=== PATIENT | female | born 1985 | race Hispanic/Latino ===

== ENCOUNTER 2025-03-16 14:29 | Inpatient (IN) | payer SELFPAY ==
[~2025-03-16] VITALS: Ht 147.3 cm; Wt 53.0 kg
--- NOTE | 2025-03-16 14:57 | HP ---
[facility] HISTORY AND PHYSICAL Date of Service: Mar 16, 2025 Time of Service: 14:56 HISTORY OF PRESENT ILLNESS: 39-year-old female with past medical history insulin dependent diabetes mellitus, history of coarctation of aorta status post surgery as a child who pr esented the hospital secondary to shortness of breath with exertion, chest pain, lower extremity weakness. Patient states since January last year she has noted that she has been having progressive shortness of breath. Her shortness of breath is present with exertional mainly ambulation. She can take 20s steps before getting short of. She also gets mildly short of breath with daily activities including cooking. She complains of midsternal chest pain which radiates towards her back. She describes the pain as heartburn in nature. She currently does not have any active chest pain when she came to the hospital. She denied any upper extremity numbness, weakness. Additionally she has also noted that she is having progressive weakness of her lower extremity. She has a difficult time with ambulation. She does ambulate at home. She had sprained her right ankle around one year ago and has noted pain in the ankle. She had x- ray done in the ER and she was treated for sprain conservatively. She denies any previous history of hypertension. She went to see her primary interactive media director Dr. Leavitt today where she was recommended to come to the hospital for further evaluation. She was sent as a direct admission. Furthermore she has a history of insulin dependent diabetes and currently takes Tresiba and Humalog at home. Patient's blood pressure on presentation was 167/72, heart rate was in the 90s, temperature was 99.0 REVIEW OF SYSTEMS CONSTITUTIONAL: Denies fevers, chills, or night sweats. No unintentional weight loss reported. NEUROLOGICAL: Denies headache, amaurosis fugax, motor weakness, sensory deficit, vertigo/spinning sensation, gait abnormalities, or tremors. ENT: No hearing loss, otalgia, otorrhea, rhinitis, rhinorrhea, hoarseness, or sore throat. CARDIOVASCULAR: Positive for dyspnea on exertion, PULMONARY: Denies any shortness of breath, cough, phlegm/sputum, hemoptysis, pleuritic chest pain. SLEEP: Denies morning headaches, daytime somnolence or napping. Denies difficulty falling asleep, staying asleep, waking from sleep. Denies knowledge of snoring. GASTROINTESTINAL: Denies any type of dysphagia to either liquids or solids. Denies nausea, vomiting, pyrosis, early satiety, abdominal pain, diarrhea, constipation, or changes in stool consistency or caliber. Denies coffee-ground emesis, hematemesis, hematochezia, or melanotic stools. GENITOURINARY: Denies frequency, urgency, nocturia, hematuria or incontinence (Storage/Irritative symptoms.) Low urinary stream, straining to void, urinary intermittency or hesitancy, splitting of the voiding stream, terminal dribbling. ENDOCRINOLOGIC: Denies polyuria, polydipsia, polyphagia or heat/cold intolerances. HEMATOLOGIC: Denies thrombophilia/previous clots, or coagulopathy/bleeding disorders. ONCOLOGIC: Denies personal history of malignancy. DERMATOLOGIC: Denies rashes or pruritus. PSYCHIATRIC: Denies any suicidal or homicidal ideation. Denies hallucinations. PAST MEDICAL HISTORY: Insulin dependent diabetes mellitus, history of coarctation acute PAST SURGICAL HISTORY: Patient had coarctation of aorta repaired when she was 23 days old as a child PAST SOCIAL HISTORY: Denied any smoking, alcohol, drug use FAMILY HISTORY: Denied any pertinent family history Coded Allergies: levofloxacin (Unverified Allergy, Unknown, NAUSEA/VOMITING, 03/16/25) PHYSICAL EXAM GENERAL APPEARANCE: The patient is awake, alert, and oriented, in no acute cardiopulmonary distress. NEUROLOGICAL: Cranial nerves II-XII grossly intact. Motor is 5/5 in bilateral upper and lower extremities proximal to distal. No sensory deficits. HEENT: Face is symmetric. Pupils are equal and reactive. Extraocular movements are intact. NECK: Supple. No JVD. No thyromegaly. No submental, submandibular, pre- /postauricular, occipital or supraclavicular lymphadenopathy. CHEST: Normal chest expansion. No Telemetry. LUNGS: Absence of any rales, rhonchi or any wheezing. CARDIOVASCULAR: Regular. S1 and S2 normal. No appreciable rubs, murmurs or gallops. ABDOMEN: Soft, nontender, and nondistended. There is no rebound, voluntary guarding, or rigidity. : Deferred. No Cope. EXTREMITIES: Patient's lower extremity he is thin. She does move her lower extremities without issue. Unable to dorsiflex her right ankle secondary to pain. SKIN: No skin breakdown. Vital Sign (Last 24 Hours) 10/8/25 14:31 Temp 99.0 Pulse 98 Resp 18 B/P (MAP) 167/84 Pulse Ox 99 O2 Delivery Room Air LABS: Current Medications Medications (Trade) Dose Ordered Sig/Jamila Route PRN Reason Start Time Stop Time Status Last Admin Dose Admin Acetaminophen (TYLenol 500MG TAB) 500 mg Q6H PRN PO MILD PAIN (1-3) 03/16/25 15:00 04/15/25 14:59 Dextrose (D50w) 50 ml AD PRN IV HYPOGLYCEMIA PROTOCOL 03/16/25 15:00 04/15/25 14:59 UNV Famotidine (Pepcid 20mg Vial) 20 mg BID IV 03/16/25 21:00 04/15/25 20:59 Glucagon (Glucagon 1mg Kit) 1 mg AD PRN IM HYPOGLYCEMIA PROTOCOL 03/16/25 15:00 04/15/25 14:59 UNV Insulin Human Regular (humuLIN R 100 UNIT/ML 3ML) INSULIN SLIDING SCAL... ACHS SQ 03/16/25 16:30 04/15/25 16:29 UNV Potassium Chloride (KCl 10% Elixir 20meq/15ml) 20 meq AD PRN PO POTASSIUM PROTOCOL 03/16/25 15:00 04/15/25 14:59 UNV DIAGNOSTICS / RADIOLOGY: [ ] ASSESSMENT: Suspected coarctation of aorta status post repair as a child Progressive dyspnea on exertion. Differential secondary to coarctation of aorta versus CHF Lower extremity weakness Hypertension Insulin dependent diabetes mellitus chest pain PLAN: -patient to be admitted to PCCU -in reference to progressive shortness of breath. We will obtain echocardiogram BNP, troponin. Obtain a chest x-ray. We will obtain a CT angio of the chest for evaluation of coarctation of aorta -in reference to possible coarctation of aorta. We will request CT angio of the chest. We will request consultation with Cardiology -obtain a x-ray of the ankle. Obtain a arterial Doppler of the lower extremities. -check hemoglobin A1c -obtain home medications which will be reconciled once available -further orders per hospitalization course. Advanced Care Planning Which of the following were discussed: Hospice care: Yes __ No _x_ Therapeutic options: Yes __ No __ Advance directives: Yes __ No __ Other discussions: Discussed with who?: patient (Patient, family or surrogates) Voluntary nature of this service was explained to the patient? Yes _x_ No __ Amount of time spent: 25 minutes SERAFIN Mcdaniels MD, MD Mar 16, 2025 14:57
[2025-03-16] MEDS ORDERED: DEXTROSE 50%-WATER 50 ML DISP.SYRIN IV PRN (15:00)
[2025-03-16] MEDS ORDERED: PoTASSium chl 10% ELIXIR 20MEQ 20 MEQ/15 ML UDCUP PO PRN (15:00)
[2025-03-16] MEDS ORDERED: GLUCAGON 1MG KIT 1 MG ML IM PRN (15:00)
[2025-03-16] MEDS ORDERED: MAGNESIUM 2GM PREMIX 50ML 50 ML IV PRN (15:00)
[2025-03-16 15:14] LABS: IMMATURE GRANULOCYTE ABSOLUTE 0.03 K/uL (0-1); NUCLEATED RED BLOOD CELLS 0.0 % (0.0-0.19); PLATELET COUNT (AUTO) 334 K/uL (130-400); RED BLOOD CELL COUNT(AUTO) 3.94 MIL/uL (4.00-5.50); RED CELL DISTRIBUTION WIDTH 12.3 % (11.0-15.5); WHITE BLOOD COUNT (AUTO) 9.4 K/uL (4.8-10.8)
--- NOTE | 2025-03-16 15:33 | EKG ---
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
[2025-03-16 15:38] LABS: ASPARTATE AMINOTRANSFERASE 19.0 U/L (10-37); CREATININE 0.7 mg/dL (0.5-1.0); GLOMERULAR FILTR. RATE CALC 111.0 mL/min (>90); GLUCOSE,RANDOM 134.0 mg/dL (70-105); SODIUM SERUM 139.0 mmol/L (136-145); TOTAL PROTEIN, SERUM 7.5 g/dL (6.0-8.3); UREA NITROGEN, BLOOD 19.0 mg/dL (7-18)
[2025-03-16 16:39] LABS: APPEARANCE,URINE CLOUDY (CLEAR); GLUCOSE, URINE (UA) NEGATIVE (NEGATIVE); LEUKOCYTE ESTERASE ,URINE NEGATIVE Leu/uL (NEGATIVE); NITRATE,URINE 2+ (NEGATIVE); OCCULT BLOOD,URINE NEGATIVE (NEGATIVE)
[2025-03-16 16:41] LABS: ADD UA MICROSCOPIC YES
[2025-03-16 16:43] LABS: HCG,QUALITATIVE URINE NEGATIVE (NEGATIVE)
[2025-03-16 16:45] LABS: SQUAMOUS EPITHELIAL CELL,UR RARE /HPF (0-2)
[2025-03-16] MEDS ORDERED: IOHEXOL-350 75 ML VIAL IV ONE (16:55)
--- NOTE | 2025-03-16 17:23 | HMCIMG ---
Exam: Bilateral lower extremity arterial ultrasound. Technique: Static grayscale and Doppler images were obtained History: Leg weakness Comparison: None Right side: COATING MACHINE FEEDER systolic: 172 cm/s Waveform: Triphasic SFA proximal systolic: 113 cm/s Waveform: Triphasic SFA mid systolic: 128 cm/s Waveform: Triphasic SFA distal systolic: 127 cm/s Waveform: Triphasic Popliteal artery systolic: 93/79 cm/s Waveform triphasic Anterior tibial artery systolic: 72 cm/s Waveform triphasic Posterior tibial artery systolic 40 cm/s Waveform triphasic DPA: 46 cm/s. Waveform: Triphasic Left side: COATING MACHINE FEEDER systolic: 138 cm/s Waveform: Triphasic SFA proximal systolic: 113 cm/s Waveform: Triphasic SFA mid systolic: 122 cm/s Waveform: Triphasic SFA distal systolic: 90 cm/s Waveform: Triphasic Popliteal artery systolic: 102/96 cm/s Waveform triphasic Anterior tibial artery systolic: 114 cm/s Waveform triphasic Posterior tibial artery systolic 40 cm/s Waveform triphasic. DPA: 110 cm/s. Waveform: Triphasic IMPRESSION: 1. No acute findings. Normal bilateral lower extremity arterial ultrasound. /[place]
--- NOTE | 2025-03-16 18:06 | HMCIMG ---
EXAM: XR Chest, 1 View. CLINICAL HISTORY: 39 year old female coartation of aorta. COMPARISON: None provided. FINDINGS: LUNGS: The lungs are clear. No consolidation. PLEURAL SPACES: No pleural effusion or pneumothorax. HEART: Borderline cardiomegaly. Consider CTA chest if clinically indicated. BONES: No acute osseous abnormality. IMPRESSION: 1. Borderline cardiomegaly. /[place]
--- NOTE | 2025-03-16 18:17 | NUR ---
REPORT GIVEN TO JIGAR SCOTT, SAIRA SENT WITH PATIENT
[2025-03-16 18:21] VITALS: BP 158/88; PULSE 95; RESP 17; TEMP 98.1
--- NOTE | 2025-03-16 18:24 | HMCIMG ---
EXAM: XR Right Ankle, 3 View. CLINICAL HISTORY: 39 year old female right ankle pain. COMPARISON: None provided. FINDINGS: BONES: No acute fracture or focal osseous lesion. JOINTS: No dislocation. The joint spaces are normal. SOFT TISSUES: The soft tissues are unremarkable. IMPRESSION: 1. No acute osseous abnormality. /[place]
[2025-03-16 18:37] VITALS: BP 129/82; PULSE 96; RESP 17; TEMP 98.1
--- NOTE | 2025-03-16 18:37 | HMCIMG ---
EXAM: CT Chest Without Intravenous Contrast. CLINICAL HISTORY: 39-year-old female, coarctation of the aorta. TECHNIQUE: Axial computed tomography images of the chest without intravenous contrast. Dose reduction technique was used including one or more of the following: automated exposure control, adjustment of mA and kV according to patient size, and/or iterative reconstruction. CONTRAST: Without COMPARISON: Chest x-ray 01/16/2025. FINDINGS: LIMITATIONS: Motion artifact limits evaluation. LUNGS: Negative for pulmonary embolism. No pulmonary mass. No focal airspace consolidation. PLEURAL SPACES: No pleural effusion. No pneumothorax. HEART AND MEDIASTINUM: Coarctation of the aorta. No cardiomegaly. No significant pericardial effusion. LYMPH NODES: No lymphadenopathy. CHEST WALL AND UPPER ABDOMEN: Mild fatty liver. The chest wall is unremarkable. BONES: No acute osseous abnormality. Overall similar to chest x-ray. IMPRESSION: 1. No acute pulmonary abnormality. 2. Mild fatty liver. /[place]
[2025-03-16] MEDS ORDERED: LORA10TA7 PO (18:51)
[2025-03-16] MEDS ORDERED: FLUT16H EN (18:51)
[2025-03-16 19:19] VITALS: BP 109/77; PULSE 96; RESP 18; TEMP 98.3
[2025-03-16 20:00] VITALS: O2SAT 98
[2025-03-16] MEDS: FAMOTIDINE 20MG VIAL IV SCH (20:43)
--- NOTE | 2025-03-16 22:20 | HMCSR ---
APPROVED REPORT EXAM: Two-dimensional and M-mode echocardiogram with Doppler and color Doppler. Study Details: Hx: DM, coarctation of aorta s/p surgery as a child INDICATION ICD: R06.02 Shortness of breath, possible coarctation of aorta 2D Dimensions RVDd2.6 cmLVEF(%)65.3 (>50%)LVED Vol(simp.)53.0 mL IVSd1.3 (0.7-1.1cm)FS(%)35 %LVES Vol(simp.)26.0 mL LVDd3.2 (3.8-5.6cm)LA (2D)2.8 (1.6-4.0cm)LVEF(%, simp.)51 % PWd1.3 (0.7-1.1cm)Ao Root(2D)2.8 (2.0-3.7cm)LA ESV INDEX (BP)24.72 mL/m2 IVSs1.7 cmLVOT diam1.7 (1.8-2.4cm) LVDs2.1 (2.5-4.0cm) PWs1.7 cm Deformation Strain Apical 4-15.1 % Apical 2-14.1 % Apical 3-14.9 % Global Strain-14.7 % M-Mode Dimensions EPSS0.4 cm LA (MM)2.9 (1.6-4.0cm) Ao Root(MM)2.2 (2.0-3.7cm) Aortic Valve AoV Vmax1.5 m/Issa Peak GR9.1 mmHgLVOT Vmax0.9 m/s AoV VTI0.3 mAo Mean GR5.2 mmHgLVOT VTI0.17 m JABARI (VMAX)1.70 cm2AVA (VTI) 1.6 cm2 Mitral Valve MV E Qhzd500.6 cm/sDECEL Xdli153 msMVA (VTI)2.00 cm2 MV A Vmax90.5 cm/sP 1/2 T34 ms E/A ratio1.2MVA (PHT)6.5 cm2 TDI E/E' Ycdmwc96.5E/E' Zsvlvlw58.1 Medial E' Peak V6.88 cm/sLateral E' Peak V8.11 cm/s Pulmonary Valve PV Vmax1.2 m/sPV VTI0.19 mPV Mean GR3.3 mmHg PV Peak GR5.8 mmHg Tricuspid Valve TR Vmax1.4 m/sRAP (EST) 3 iyVcWGVB46.3 mmHg TR Peak GR8.3 mmHg Left Ventricle The left ventricle is normal size. GLS -15.0% No regional wall motion abnormality. Moderate concentri c left ventricular hypertrophy. LVEF is 50%. Indeterminate diastolic dysfunction. Right Ventricle The right ventricle is normal size. The right ventricular systolic function is normal. Atria The left atrium size is normal. Atrial septum is bowed toward the right. The right atrium is small in size. Aortic Valve The aortic valve appears to open well. No aortic regurgitation is present. There is no aortic valvula r stenosis. Mitral Valve Hockey-stick appearance of Anterior mitral leaflet, but no significant stenosis by doppler measurem ent. The mitral valve is mildly thickened. Mitral valve appears rheumatic. There is trivial mitral va lve regurgitation noted. There is no mitral valve stenosis. Tricuspid Valve The tricuspid valve is normal in structure. There is trace of tricuspid valve regurgitation noted. Pulmonic Valve The pulmonary valve is normal in structure. There is trivial pulmonic valvular regurgitation. Great Vessels The aortic root is normal in size. The IVC is small in size and collapses >50% with inspiration. Pericardium There is no pericardial effusion. Other Information Quality : Technically difficult study due to body habitus Conclusion LVEF is 50%. Moderate concentric left ventricular hypertrophy.
[2025-03-16 23:17] VITALS: BP 131/65; PULSE 96; RESP 18; TEMP 98.1
[2025-03-17] VITALS (11 sets, daily range): BP systolic 81–141; BP diastolic 54–90; PULSE 43–96; RESP 17–20; TEMP 98–98.5; O2SAT 98–99
[2025-03-17] MEDS ORDERED: INSU100I15 SQ (00:52)
[2025-03-17] MEDS ORDERED: INSU200I4 SQ (00:52)
[2025-03-17 04:14] LABS: ASPARTATE AMINOTRANSFERASE 18.0 U/L (10-37); CREATININE 0.4 mg/dL (0.5-1.0); GLOMERULAR FILTR. RATE CALC 127.0 mL/min (>90); GLUCOSE,RANDOM 89.0 mg/dL (70-105); SODIUM SERUM 141.0 mmol/L (136-145); TOTAL PROTEIN, SERUM 6.5 g/dL (6.0-8.3); UREA NITROGEN, BLOOD 21.0 mg/dL (7-18)
[2025-03-17] MEDS: PoTASSium chloRIDE 20MEQ ER 20 MEQ ERTAB PO PRN (06:03)
--- NOTE | 2025-03-17 08:16 | CONS ---
[facility] CARDIOLOGY CONSULTATION NOTE Date Patient Seen: Mar 17, 2025 Time of Visit: 08:11 Reason for Consultation: [h/o coarctation s/p repair ] History of Present Illness: [ 39-year-old female with past medical history insulin dependent diabetes me llitus, history of coarctation of aorta status post surgical repair as an infant (first month of life) who presented the hospital secondary to shortness of breath with exertion, chest pain, lower extremity weakness. Patient states since January last year she has noted that she has been having progressive shortness of breath. Her shortness of breath is present with exertional mainly ambulation. She can take 20s steps before getting short of. She also gets mildly short of breath with daily activities including cooking. She complains of midsternal chest pain which radiates towards her back. She describes the pain as heartburn in nature. She currently does not have any active chest pain when she came to the hospital. She denied any upper extremity numbness, weakness. Additionally she has also noted that she is having progressive weakness of her lower extremity. She has a difficult time with ambulation. She does ambulate at home. I evaluated her as a new patient in my clinic on the day of admission due to discrepancy of BP in both upper extremities and debilitating symptoms. ] Past Medical History: [ ] Past Surgical History: [ ] Family History: [ ] Social History: [ ] Habits: [Never] smoker. [Denies] alcohol consumption. [Denies] illicit drug use Home Meds: [ ] Current Meds: [ ] Review of Systems: CONST: [No fever, fatigue, or weight changes.] EYES: [No recent vision problems.] ENT: [No congestion, ear pain, or sore throat.] C/V: [No chest pain, palpitations, or edema.] RESP: [No cough. + shortness of breath.] GI: [No abdominal pain, nausea, vomiting, constipation, or diarrhea.] : [No incontinence or dysuria.] SKIN: [No rash.] NEURO: [No headache, focal numbness or weakness, dizziness, or seizures.] PSYCH: [No depression or anxiety.] HEME: [No abnormal bruising or bleeding.] LYMPH: [No swollen glands.] Physical Examination: GENERAL: [No acute distress.] HEAD: [Normal with no signs of head trauma.] EYES: [PERRLA, EOMI, conjunctiva and sclera normal.] ENT: [Hearing grossly intact, normal oropharynx.] NECK: [Supple without JVD. There is no tenderness, lymphadenopathy, or masses. No thyromegaly. Normal carotid upstrokes without bruits.] LUNGS: [Clear breath sounds bilaterally. There are right basilar rales one third of the way up the chest. No wheezes, or rhonchi.] HEART: [Normal rate and rhythm. Normal S1 and S2 without mumurs, gallop or rub.] VASC: [Peripheral pulses +2 bilaterally.] ABD: [Bowel sounds normal, soft, nontender, no masses, no organomegaly. No audib le bruits.] : [Not examined] LYMPH: [No lymphadenopathy noted.] EXT: [No clubbing, cyanosis or edema.] SKIN: [No rashes or lesions noted.] NEURO: [Awake, alert, and oriented x3. No focal sensory or strength deficits noted.] Vital Signs (last 8hr) Date Time Temp Pulse Resp B/P (MAP) Pulse Ox O2 Delivery O2 Flow Rate FiO2 03/17/25 07:33 98 Room Air* 0 21 03/17/25 03:41 98.1 86 18 141/74 100 Room Air Laboratory: [ ] Hematology Labs: Test 03/16/25 15:07 Range/Units White Blood Count 9.4 4.8-10.8 K/uL Red Blood Count 3.94 L 4.00-5.50 MIL/uL Hemoglobin 11.8 L 12.0-16.0 g/dL Hematocrit 34.7 L 36-48 % Mean Corpuscular Volume 88.1 79-99 fL Mean Corpuscular Hemoglobin 29.9 27.0-33.0 pg Mean Corpuscular Hemoglobin Concent 34.0 32.0-36.0 g/dL Red Cell Distribution Width 12.3 11.0-15.5 % Platelet Count 334 130-400 K/uL Mean Platelet Volume 10.5 7.5-10.5 fL Immature Granulocyte % (Auto) 0.3 0-1 % Neutrophils (%) (Auto) 73.5 40.0-77.0 % Lymphocytes (%) (Auto) 17.3 L 21.0-51.0 % Monocytes (%) (Auto) 7.2 3.0-13.0 % Eosinophils (%) (Auto) 1.5 0.0-8.0 % Basophils (%) (Auto) 0.2 0.0-5.0 % Neutrophils # (Auto) 6.9 1.8-7.7 K/uL Lymphocytes # (Auto) 1.6 1.0-4.8 K/uL Monocytes # (Auto) 0.7 0.1-1.0 K/uL Eosinophils # (Auto) 0.14 0.00-0.70 K/uL Basophils # (Auto) 0.02 0.00-0.20 K/uL Absolute Immature Granulocyte (auto 0.03 0-1 K/uL Nucleated Red Blood Cells 0.0 0.0-0.19 % Chemistry Labs: Test 03/17/25 03:17 03/16/25 19:18 03/16/25 15:07 Range/Units Sodium Level 141 136-145 mmol/L Potassium Level 3.7 3.5-5.1 mmol/L Chloride Level 108 101-111 mmol/L Carbon Dioxide Level 24 21-32 mmol/L Blood Urea Nitrogen 21 H 7-18 mg/dL Creatinine 0.4 L 0.5-1.0 mg/dL Glomerular Filtration Rate Calc 127 >90 mL/min Random Glucose 89 70-105 mg/dL Total Calcium 8.2 L 8.5-10.1 mg/dL Magnesium Level 2.00 1.80-2.40 mg/dL Total Bilirubin 0.2 # 0.2-1.0 mg/dL Aspartate Amino Transf (AST/SGOT) 18 10-37 U/L Alanine Aminotransferase (ALT/SGPT) 17 # 12-78 U/L Alkaline Phosphatase 65 # 50-136 U/L Total Protein 6.5 6.0-8.3 g/dL Albumin 2.7 L 3.5-5.0 g/dL Thyroid Stimulating Hormone (TSH) 1.87 # 0.36-3.74 uIU/mL Whole Blood Glucose 91 70-110 MG/DL Hemoglobin A1c 6.5 H 4.0-6.0 % Estimated Average Glucose (eAG) 140 H 70-126 mg/dL Troponin I High Sensitivity 5 4-50 ng/L B-Type Natriuretic Peptide 41 0-100 pg/mL Procalcitonin < 0.05 L 0.05-0.5 ng/mL Diagnostics / Radiology: [Copy/Paste Echos/Imaging Report here] Assessment: [ DM History of coarctation of aorta s/p repair as an ] Plan: [ #History of coarctation of aorta s/p repair as an infant now with recurrence -CCTA absence of CAD, however, >75% reduction in diameter of coarctation of the aorta -Echo limited views of descending aorta, but was otherwise normal ->20 SBP drop in RUE compared to LUE -pending upper and lower BP measurements -will have Dr Cooper evaluate on Friday Jillian Leavitt MD] JILLIAN LEAVITT MD Mar 17, 2025 08:16
--- NOTE | 2025-03-17 11:19 | NUR ---
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 P states family assists her as needed with her ADLS. Pt states she walks very slowly because her legs are very weak. helps with bathing and dressing set up and stand by assist. Pt reports she has a good support system in place. No dme or in home care services. pCP is Lisa Baptiste and uses [facility] on [address] and [address] in [place]. Pt hopes she can return home, waiting for MD plan of care and recommendations. CM to follow and assist as needed Addendum: 03/17/25 at 1127 by SIMONE MEZA Amended: Links added.
--- NOTE | 2025-03-17 12:09 | CONS ---
CONSULT NOTE: Endocrinology Consult Chief complaint: chest pain, sob and elevated BP Reason for consult: dm-2 and htn DOS:03/17/25 HISTORY OF PRESENT ILLNESS: 39-year-old female with past medical history insulin dependent type 1 diabetes mellitus, history of coarctation of aorta status post surgery as a child who presented the hospital secondary to shortness of breath with exertion, chest pain, lower extremity weakness. Patient states since January last year she has noted that she has been having progressive shortness of breath. She had x-ray done in the ER and she was treated for sprain conservatively. She denies any previous history of hypertension. She is followed by her primary sas analyst Dr. Leavitt Patient's blood pressure on presentation was 167/72, heart rate was in the 90s, temperature was 99.0, BP is improving now. Home diabetic regimen: tresiba 15 units daily and humalog 7 units qac before meals Hba1c 6.5% I saw this patient recently in the hospital and am cortisol was checked due to intermittent low blood pressure. am cortisol was normal 17.2, so there was no evidence of adrenal insufficiency. REVIEW OF SYSTEMS CONSTITUTIONAL: Denies fevers, chills, or night sweats. No unintentional weight loss reported. NEUROLOGICAL: Denies headache, amaurosis fugax, motor weakness, sensory deficit, vertigo/spinning sensation, gait abnormalities, or tremors. ENT: No hearing loss, otalgia, otorrhea, rhinitis, rhinorrhea, hoarseness, or sore throat. CARDIOVASCULAR: Positive for dyspnea on exertion, PULMONARY: Denies any shortness of breath, cough, phlegm/sputum, hemoptysis, pleuritic chest pain. SLEEP: Denies morning headaches, daytime somnolence or napping. Denies difficulty falling asleep, staying asleep, waking from sleep. Denies knowledge of snoring. GASTROINTESTINAL: Denies any type of dysphagia to either liquids or solids. Denies nausea, vomiting, pyrosis, early satiety, abdominal pain, diarrhea, constipation, or changes in stool consistency or caliber. Denies coffee-ground emesis, hematemesis, hematochezia, or melanotic stools. GENITOURINARY: Denies frequency, urgency, nocturia, hematuria or incontinence (Storage/Irritative symptoms.) Low urinary stream, straining to void, urinary intermittency or hesitancy, splitting of the voiding stream, terminal dribbling. ENDOCRINOLOGIC: Denies polyuria, polydipsia, polyphagia or heat/cold intolerances. HEMATOLOGIC: Denies thrombophilia/previous clots, or coagulopathy/bleeding disorders. ONCOLOGIC: Denies personal history of malignancy. DERMATOLOGIC: Denies rashes or pruritus. PSYCHIATRIC: Denies any suicidal or homicidal ideation. Denies hallucinations. 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 - Emergency room visit in September for sprained right ankle after fall at home Surgical History - Retinal detachment surgery in 2018 - Coarctation of the aorta repair at 23 days old - Surgery for muscle tightening in stomach at 10 days old Medications and Supplements - Insulin for type one diabetes - Always taking since diagnosis at age 8 - Avastin eye injections in both eyes due to prolonged diabetes - Received in the past Social History - Occupation: Works at a [email or web address] job Coded Allergies: levofloxacin (Unverified Allergy, Unknown, NAUSEA/VOMITING, 03/16/25) PHYSICAL EXAM GENERAL APPEARANCE: The patient is awake, alert, and oriented, in no acute cardiopulmonary distress. NEUROLOGICAL: Cranial nerves II-XII grossly intact. Motor is 5/5 in bilateral upper and lower extremities proximal to distal. No sensory deficits. HEENT: Face is symmetric. Pupils are equal and reactive. Extraocular movements are intact. NECK: Supple. No JVD. No thyromegaly. No submental, submandibular, pre- /postauricular, occipital or supraclavicular lymphadenopathy. CHEST: Normal chest expansion. No Telemetry. LUNGS: Absence of any rales, rhonchi or any wheezing. CARDIOVASCULAR: Regular. S1 and S2 normal. No appreciable rubs, murmurs or gallops. ABDOMEN: Soft, nontender, and nondistended. There is no rebound, voluntary guarding, or rigidity. : Deferred. No Cope. SKIN: No skin breakdown. ASSESSMENT: Type 1 Diabetes mellitus Home diabetic regimen: tresiba 15 units daily and humalog 7 units qac before meals Hba1c 6.5% Hypertension I saw this patient recently in the hospital and am cortisol was checked due to intermittent low blood pressure. am cortisol was normal 17.2, so there was no evidence of adrenal insufficiency. she now reports episodes of elevated BP, chest pain and SOB. my suspicion is low for hyperaldosteronism or pheochromocytoma but will order labs. Suspected coarctation of aorta status post repair as a child, cardiology is following and cardiac work iup is in progress. Progressive dyspnea on exertion. Differential secondary to coarctation of aorta versus CHF Lower extremity weakness chest pain - improving PLAN: continue Lantus 14 units daily and adjust for fasting glucose. start Regular insulin 3 units three times before meals and adjust for post- prandial glucose. Continue low dose sliding scale insulin. check plasma renin, serum aldosterone, plasma fractionated metanpehrines and normetanephrines. Monitor glucose q x 6 hourly. Continue carb consistent diet. Keep glucose less than 180 mg/dl. Thanks for allowing me to participate in patient care and will continue to follow up. Vital Signs 03/17/25 03/17/25 07:33 08:00 Temp 98.2 Pulse 92 Resp 17 B/P (MAP) 119/56 Pulse Ox 99 O2 Delivery Room Air O2 Flow Rate 0 FiO2 21 Hematology Labs: Test 03/16/25 15:07 Range/Units White Blood Count 9.4 4.8-10.8 K/uL Red Blood Count 3.94 L 4.00-5.50 MIL/uL Hemoglobin 11.8 L 12.0-16.0 g/dL Hematocrit 34.7 L 36-48 % Mean Corpuscular Volume 88.1 79-99 fL Mean Corpuscular Hemoglobin 29.9 27.0-33.0 pg Mean Corpuscular Hemoglobin Concent 34.0 32.0-36.0 g/dL Red Cell Distribution Width 12.3 11.0-15.5 % Platelet Count 334 130-400 K/uL Mean Platelet Volume 10.5 7.5-10.5 fL Immature Granulocyte % (Auto) 0.3 0-1 % Neutrophils (%) (Auto) 73.5 40.0-77.0 % Lymphocytes (%) (Auto) 17.3 L 21.0-51.0 % Monocytes (%) (Auto) 7.2 3.0-13.0 % Eosinophils (%) (Auto) 1.5 0.0-8.0 % Basophils (%) (Auto) 0.2 0.0-5.0 % Neutrophils # (Auto) 6.9 1.8-7.7 K/uL Lymphocytes # (Auto) 1.6 1.0-4.8 K/uL Monocytes # (Auto) 0.7 0.1-1.0 K/uL Eosinophils # (Auto) 0.14 0.00-0.70 K/uL Basophils # (Auto) 0.02 0.00-0.20 K/uL Absolute Immature Granulocyte (auto 0.03 0-1 K/uL Nucleated Red Blood Cells 0.0 0.0-0.19 % Chemistry Labs: Test 03/17/25 11:22 03/17/25 03:17 03/16/25 15:07 Range/Units Whole Blood Glucose 135 H 70-110 MG/DL Sodium Level 141 136-145 mmol/L Potassium Level 3.7 3.5-5.1 mmol/L Chloride Level 108 101-111 mmol/L Carbon Dioxide Level 24 21-32 mmol/L Blood Urea Nitrogen 21 H 7-18 mg/dL Creatinine 0.4 L 0.5-1.0 mg/dL Glomerular Filtration Rate Calc 127 >90 mL/min Random Glucose 89 70-105 mg/dL Total Calcium 8.2 L 8.5-10.1 mg/dL Magnesium Level 2.00 1.80-2.40 mg/dL Total Bilirubin 0.2 # 0.2-1.0 mg/dL Aspartate Amino Transf (AST/SGOT) 18 10-37 U/L Alanine Aminotransferase (ALT/SGPT) 17 # 12-78 U/L Alkaline Phosphatase 65 # 50-136 U/L Total Protein 6.5 6.0-8.3 g/dL Albumin 2.7 L 3.5-5.0 g/dL Thyroid Stimulating Hormone (TSH) 1.87 # 0.36-3.74 uIU/mL Hemoglobin A1c 6.5 H 4.0-6.0 % Estimated Average Glucose (eAG) 140 H 70-126 mg/dL Troponin I High Sensitivity 5 4-50 ng/L B-Type Natriuretic Peptide 41 0-100 pg/mL Procalcitonin < 0.05 L 0.05-0.5 ng/mL Current Medications Medications (Trade) Dose Ordered Sig/Jamila Route Start Time Stop Time Status Last Admin Dose Admin Famotidine (Pepcid 20mg Vial) 20 mg BID IV 03/16/25 21:00 04/15/25 20:59 03/17/25 08:08 20 MG Insulin Glargine (LANtus 100 UNITS/ML 10 ML VIAL) 14 units DAILY SQ 03/17/25 09:00 04/16/25 08:59 03/17/25 08:16 14 UNITS Insulin Glargine (LANtus 100 UNITS/ML 10 ML VIAL) 20 units DAILY SQ 03/17/25 09:00 03/17/25 05:36 DC Insulin Human Regular (humuLIN R 100 UNIT/ML 3ML) INSULIN SLIDING SCAL... ACHS SQ 03/16/25 16:30 04/15/25 16:29 LALO CORNEJO MD Mar 17, 2025 12:09
[2025-03-17] MEDS ORDERED: IOHEXOL 350 MG/ML 100ML INFUS..BTL IV ONE (13:28)
--- NOTE | 2025-03-17 13:34 | PN ---
[facility] PROGRESS NOTE Date of Service: Mar 17, 2025 Time of Service: 13:05 HISTORY OF PRESENT ILLNESS: 39-year-old female with past medical history insulin dependent diabetes mellitus, history of coarctation of aorta status post surgery as a child who presented the hospital secondary to shortness of breath with exertion, chest pain, lower extremity weakness. Patient states since January last year she has noted that she has been having progressive shortness of breath. Her shortness of breath is present with exertional mainly ambulation. She can take 20s steps before getting short of. She also gets mildly short of breath with daily activities including cooking. She complains of midsternal chest pain which radiates towards her back. She describes the pain as heartburn in nature. She currently does not have any active chest pain when she came to the hospital. She denied any upper extremity numbness, weakness. Additionally she has also noted that she is having progressive weakness of her lower extremity. She has a difficult time with ambulation. She does ambulate at home. She had sprained her right ankle around one year ago and has noted pain in the ankle. She had x- ray done in the ER and she was treated for sprain conservatively. She denies any previous history of hypertension. 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 Leavitt today where she was recommended to come to the hospital for further evaluation. She was sent as a direct admission. Furthermore she has a history of insulin dependent diabetes and currently takes Tresiba and Humalog at home. Patient's blood pressure on presentation was 167/72, heart rate was in the 90s, temperature was 99.0 SUBJECTIVE: 03/17/25: Patient was seen in room 220, along with her . Patient was alert, awake and oriented. Patient reports shortness of breath with exertion, weakness in her B/L lower extremities. Patient reports ankle pain in her right foot, attributes it to her ankle sprain which she had a few days ago. Patient reports recurrent buckling of her knee joints. Patient denies cramping in her b/l lower extremities. Patient denies any paresthesia in extremities. Patient denies any motor weakness in b/l upper extremities. Patient denied fever, chills, palpitations. Patient denies any current chest pain. REVIEW OF SYSTEMS CONSTITUTIONAL: Denies fevers, chills, or night sweats. No unintentional weight loss reported. NEUROLOGICAL: Denies headache, amaurosis fugax, motor weakness, sensory deficit, vertigo/spinning sensation, gait abnormalities, or tremors. ENT: No hearing loss, otalgia, otorrhea, rhinitis, rhinorrhea, hoarseness, or sore throat. CARDIOVASCULAR: Positive for dyspnea on exertion, PULMONARY: Denies any shortness of breath, cough, phlegm/sputum, hemoptysis, pleuritic chest pain. SLEEP: Denies morning headaches, daytime somnolence or napping. Denies diffic ulty falling asleep, staying asleep, waking from sleep. Denies knowledge of snoring. GASTROINTESTINAL: Denies any type of dysphagia to either liquids or solids. Denies nausea, vomiting, pyrosis, early satiety, abdominal pain, diarrhea, constipation, or changes in stool consistency or caliber. Denies coffee-ground emesis, hematemesis, hematochezia, or melanotic stools. GENITOURINARY: Denies frequency, urgency, nocturia, hematuria or incontinence (Storage/Irritative symptoms.) Low urinary stream, straining to void, urinary intermittency or hesitancy, splitting of the voiding stream, terminal dribbling. ENDOCRINOLOGIC: Denies polyuria, polydipsia, polyphagia or heat/cold into lerances. HEMATOLOGIC: Denies thrombophilia/previous clots, or coagulopathy/bleeding disorders. ONCOLOGIC: Denies personal history of malignancy. DERMATOLOGIC: Denies rashes or pruritus. PSYCHIATRIC: Denies any suicidal or homicidal ideation. Denies hallucinations. PHYSICAL EXAM GENERAL APPEARANCE: The patient is awake, alert, and oriented, in no acute cardiopulmonary distress. NEUROLOGICAL: Cranial nerves II-XII grossly intact. Motor is 5/5 in bilateral upper and lower extremities proximal to distal. No sensory deficits. HEENT: Face is symmetric. Pupils are equal and reactive. Extraocular movements are intact. NECK: Supple. No JVD. No thyromegaly. No submental, submandibular, pre- /postauricular, occipital or supraclavicular lymphadenopathy. CHEST: Normal chest expansion. No Telemetry. LUNGS: Absence of any rales, rhonchi or any wheezing. CARDIOVASCULAR: Regular. S1 and S2 normal. No appreciable rubs, murmurs or gallops. ABDOMEN: Soft, nontender, and nondistended. There is no rebound, voluntary guarding, or rigidity. : Deferred. No Cope. EXTREMITIES: Patient's lower extremity he is thin. She does move her lower extremities without issue. Unable to dorsiflex her right ankle secondary to pain. motor strength in left lower extremity. SKIN: No skin breakdown. Vital Signs (last 8hr) Date Time Temp Pulse Resp B/P (MAP) Pulse Ox O2 Delivery O2 Flow Rate FiO2 03/17/25 12:01 73 17 126/90 100 Room Air 03/17/25 12:00 98.1 43 17 96/70 94 Room Air 03/17/25 08:00 92 17 119/56 99 Room Air 03/17/25 08:00 98.2 96 17 125/57 100 Room Air 03/17/25 07:33 98 Room Air* 0 21 LABS: Laboratory: Test 03/17/25 11:22 03/17/25 03:17 03/16/25 16:27 03/16/25 15:07 Range/Units Whole Blood Glucose 135 H 70-110 MG/DL Sodium Level 141 136-145 mmol/L Potassium Level 3.7 3.5-5.1 mmol/L Chloride Level 108 101-111 mmol/L Carbon Dioxide Level 24 21-32 mmol/L Blood Urea Nitrogen 21 H 7-18 mg/dL Creatinine 0.4 L 0.5-1.0 mg/dL Glomerular Filtration Rate Calc 127 >90 mL/min Random Glucose 89 70-105 mg/dL Total Calcium 8.2 L 8.5-10.1 mg/dL Magnesium Level 2.00 1.80-2.40 mg/dL Total Bilirubin 0.2 # 0.2-1.0 mg/dL Aspartate Amino Transf (AST/SGOT) 18 10-37 U/L Alanine Aminotransferase (ALT/SGPT) 17 # 12-78 U/L Alkaline Phosphatase 65 # 50-136 U/L Total Protein 6.5 6.0-8.3 g/dL Albumin 2.7 L 3.5-5.0 g/dL Vitamin B12 Level 451 193-986 pg/mL Thyroid Stimulating Hormone (TSH) 1.87 # 0.36-3.74 uIU/mL Urine Color LIGHT-YELLOW YELLOW Urine Appearance CLOUDY H CLEAR Urine pH 6.0 5.0-8.0 Urine Specific [place] 1.015 1.001-1.031 Urine Protein 50 H NEGATIVE mg/dL Urine Glucose (UA) NEGATIVE NEGATIVE mg/dL Urine Ketones NEGATIVE NEGATIVE mg/dL Urine Occult Blood NEGATIVE NEGATIVE Urine Nitrate 2+ H NEGATIVE Urine Bilirubin NEGATIVE NEGATIVE mg/dL Urine Urobilinogen 0.2 0.2-1.0 mg/dL Urine Leukocyte Esterase NEGATIVE NEGATIVE Aidan/uL Urine RBC 2-5 H 0-1 /HPF Urine WBC 2-5 H 0-1 /HPF Urine Squamous Epithelial Cells RARE 0-2 /HPF Urine Bacteria MOD None Seen /HPF Urine HCG, Qualitative NEGATIVE NEGATIVE White Blood Count 9.4 4.8-10.8 K/uL Red Blood Count 3.94 L 4.00-5.50 MIL/uL Hemoglobin 11.8 L 12.0-16.0 g/dL Hematocrit 34.7 L 36-48 % Mean Corpuscular Volume 88.1 79-99 fL Mean Corpuscular Hemoglobin 29.9 27.0-33.0 pg Mean Corpuscular Hemoglobin Concent 34.0 32.0-36.0 g/dL Red Cell Distribution Width 12.3 11.0-15.5 % Platelet Count 334 130-400 K/uL Mean Platelet Volume 10.5 7.5-10.5 fL Immature Granulocyte % (Auto) 0.3 0-1 % Neutrophils (%) (Auto) 73.5 40.0-77.0 % Lymphocytes (%) (Auto) 17.3 L 21.0-51.0 % Monocytes (%) (Auto) 7.2 3.0-13.0 % Eosinophils (%) (Auto) 1.5 0.0-8.0 % Basophils (%) (Auto) 0.2 0.0-5.0 % Neutrophils # (Auto) 6.9 1.8-7.7 K/uL Lymphocytes # (Auto) 1.6 1.0-4.8 K/uL Monocytes # (Auto) 0.7 0.1-1.0 K/uL Eosinophils # (Auto) 0.14 0.00-0.70 K/uL Basophils # (Auto) 0.02 0.00-0.20 K/uL Absolute Immature Granulocyte (auto 0.03 0-1 K/uL Nucleated Red Blood Cells 0.0 0.0-0.19 % Hemoglobin A1c 6.5 H 4.0-6.0 % Estimated Average Glucose (eAG) 140 H 70-126 mg/dL Troponin I High Sensitivity 5 4-50 ng/L B-Type Natriuretic Peptide 41 0-100 pg/mL Procalcitonin < 0.05 L 0.05-0.5 ng/mL Current Medications Medications (Trade) Dose Ordered Sig/Jamila Route PRN Reason Start Time Stop Time Status Last Admin Dose Admin Acetaminophen (TYLenol 500MG TAB) 500 mg Q6H PRN PO MILD PAIN (1-3) 03/16/25 15:00 04/15/25 14:59 Dextrose (D50w) 50 ml AD PRN IV HYPOGLYCEMIA PROTOCOL 03/16/25 15:00 04/15/25 14:59 Famotidine (Pepcid 20mg Vial) 20 mg BID IV 03/16/25 21:00 04/15/25 20:59 03/17/25 08:08 20 MG Glucagon (Glucagon 1mg Kit) 1 mg AD PRN IM HYPOGLYCEMIA PROTOCOL 03/16/25 15:00 04/15/25 14:59 Insulin Glargine (LANtus 100 UNITS/ML 10 ML VIAL) 14 units DAILY SQ 03/17/25 09:00 04/16/25 08:59 03/17/25 08:16 14 UNITS Insulin Glargine (LANtus 100 UNITS/ML 10 ML VIAL) 20 units DAILY SQ 03/17/25 09:00 03/17/25 05:36 DC Insulin Human Regular (humuLIN R 100 UNIT/ML 3ML) INSULIN SLIDING SCAL... ACHS SQ 03/16/25 16:30 04/15/25 16:29 Magnesium Sulfate 50 ml @ 0 mls/hr PROTOCOL PRN IV hypomagnesemia 03/16/25 15:00 04/15/25 14:59 Ondansetron HCl (zoFRAN 4MG INJ) 4 mg Q6H PRN IVP NAUSEA/VOMITING 03/16/25 17:00 04/15/25 16:59 Potassium Chloride 100 ml @ 100 mls/hr AD PRN IV POTASSIUM PROTOCOL 03/16/25 15:00 04/15/25 14:59 Potassium Chloride (K-Dur/Klor-Con 20meq) 20 meq AD PRN PO POTASSIUM PROTOCOL 03/16/25 15:00 04/15/25 14:59 03/17/25 08:09 20 MEQ Potassium Chloride (KCl 10% Elixir 20meq/15ml) 20 meq AD PRN PO POTASSIUM PROTOCOL 03/16/25 15:00 04/15/25 14:59 DIAGNOSTICS / RADIOLOGY: [place] [address] [place] [address] IMAGING REPORT Addendum PATIENT: ANGELA BALLARD MR#: [id number] : 1985 SEX: F AGE: 39 LOCATION: 2DH ORDER [id number] STATUS: ADM IN [facility] REPORT#: [id number] SERVICE 1447 REASON: COARTATION OF AORTA HYPERTENSIVE URGENCY ORDERING PHYSICIAN: JENNY LEAVITT MD PROCEDURE: CTA CHEST - CT ANGIO CHEST ADDENDUM REPORT ADDENDUM: A focal coarctation of the aorta is seen on the sagital reconstructed images number [id number] measuring 1.6cm and the aortas below is 2.1cm. Findings discussed over the telephone with Dr.Adarsh Medeiros 03/16/2025 at 7:30PM. /[place] EXAM: CT Chest Without Intravenous Contrast. CLINICAL HISTORY: 39-year-old female, coarctation of the aorta. TECHNIQUE: Axial computed tomography images of the chest without intravenous contrast. Dose reduction technique was used including one or more of the following: automated exposure control, adjustment of mA and kV according to patient size, and/or iterative reconstruction. CONTRAST: Without COMPARISON: Chest x-ray 01/16/2025. FINDINGS: LIMITATIONS: Motion artifact limits evaluation. LUNGS: Negative for pulmonary embolism. No pulmonary mass. No focal airspace consolidation. PLEURAL SPACES: No pleural effusion. No pneumothorax. HEART AND MEDIASTINUM: Coarctation of the aorta. No cardiomegaly. No significant pericardial effusion. LYMPH NODES: No lymphadenopathy. CHEST WALL AND UPPER ABDOMEN: Mild fatty liver. The chest wall is unremarkable. BONES: No acute osseous abnormality. Overall similar to chest x-ray. IMPRESSION: 1. No acute pulmonary abnormality. 2. Mild fatty liver. /[place] DICTATED BY: KENAN MCNALLY MD DATE: 03/16/252032 ELECTRONICALLY SIGNED BY: DATE: EXAM: CT Chest Without Intravenous Contrast. CLINICAL HISTORY: 39-year-old female, coarctation of the aorta. TECHNIQUE: Axial computed tomography images of the chest without intravenous contrast. Dose reduction technique was used including one or more of the following: automated exposure control, adjustment of mA and kV according to patient size, and/or iterative reconstruction. CONTRAST: Without COMPARISON: Chest x-ray 01/16/2025. FINDINGS: LIMITATIONS: Motion artifact limits evaluation. LUNGS: Negative for pulmonary embolism. No pulmonary mass. No focal airspace consolidation. PLEURAL SPACES: No pleural effusion. No pneumothorax. HEART AND MEDIASTINUM: Coarctation of the aorta. No cardiomegaly. No significant pericardial effusion. LYMPH NODES: No lymphadenopathy. CHEST WALL AND UPPER ABDOMEN: Mild fatty liver. The chest wall is unremarkable. BONES: No acute osseous abnormality. Overall similar to chest x-ray. IMPRESSION: 1. No acute pulmonary abnormality. 2. Mild fatty liver. /[place] DICTATED BY: KENAN MCNALLY MD DATE: 03/16/251935 ELECTRONICALLY SIGNED BY: KENAN MCNALLY MD DATE: 03/16/251935 [place] [id number] IMAGING REPORT Signed PATIENT: ANGELA BALLARD MR#: [id number] : 1985 SEX: F AGE: 39 LOCATION: 2DH ORDER 54 STATUS: ADM IN REPORT#: [id number] SERVICE 50 REASON: right ankle pain ORDERING PHYSICIAN: SERAFIN MEDEIROS MD PROCEDURE: [id number] - ANKLE 2VWS RT EXAM: XR Right Ankle, 3 View. CLINICAL HISTORY: 39 year old female right ankle pain. COMPARISON: None provided. FINDINGS: BONES: No acute fracture or focal osseous lesion. JOINTS: No dislocation. The joint spaces are normal. SOFT TISSUES: The soft tissues are unremarkable. IMPRESSION: 1. No acute osseous abnormality. /[place] DICTATED BY: KENAN MCNALLY MD DATE: 03/16/251923 ELECTRONICALLY SIGNED BY: KENAN MCNALLY MD DATE: 03/16/251923 [facility] [address] [place] [address] [id number] IMAGING REPORT Signed PATIENT: ANGELA BALLARD MR#: [id number] : 1985 SEX: F AGE: 39 LOCATION: DIRECT ORDER 57 STATUS: ADM IN REPORT#: [id number] SERVICE 46 REASON: COARTATION OF AORTA HYPERTENSIVE URGENCY ORDERING PHYSICIAN: JENNY LEAVITT MD PROCEDURE: CXR1VW - CHEST 1VW EXAM: XR Chest, 1 View. CLINICAL HISTORY: 39 year old female coartation of aorta. COMPARISON: None provided. FINDINGS: LUNGS: The lungs are clear. No consolidation. PLEURAL SPACES: No pleural effusion or pneumothorax. HEART: Borderline cardiomegaly. Consider CTA chest if clinically indicated. BONES: No acute osseous abnormality. IMPRESSION: 1. Borderline cardiomegaly. /[place] DICTATED BY: KENAN MCNALLY MD DATE: 03/16/251905 ELECTRONICALLY SIGNED BY: KENAN MCNALLY MD DATE: 03/16/251905 [facility] [address] [place] [id number] IMAGING REPORT Signed PATIENT: ANGELA BALLARD MR#: [id number] : 1985 SEX: F AGE: 39 LOCATION: 2DH ORDER 54 STATUS: ADM IN [facility] REPORT#: [id number] SERVICE 1451 REASON: sob, possible coarctation of aorta ORDERING PHYSICIAN: SERAFIN MEDEIROS MD PROCEDURE: ECHO CMP - ECHO 2-D COMPLETE APPROVED REPORT EXAM: Two-dimensional and M-mode echocardiogram with Doppler and color Doppler. Study Details: Hx: DM, coarctation of aorta s/p surgery as a child INDICATION ICD: R06.02 Shortness of breath, possible coarctation of aorta 2D Dimensions RVDd 2.6 cm LVEF(%) 65.3 (>50%) LVED Vol(simp.) 53.0 mL IVSd 1.3 (0.7-1.1cm) FS(%) 35 % LVES Vol(simp.) 26.0 mL LVDd 3.2 (3.8-5.6cm) LA (2D) 2.8 (1.6-4.0cm) LVEF(%, simp.) 51 % PWd 1.3 (0.7-1.1cm) Ao Root(2D) 2.8 (2.0-3.7cm) LA ESV INDEX (BP) 24.72 mL/m2 IVSs 1.7 cm LVOT diam 1.7 (1.8-2.4cm) LVDs 2.1 (2.5-4.0cm) PWs 1.7 cm Deformation Strain Apical 4 -15.1 % Apical 2 -14.1 % Apical 3 -14.9 % Global Strain -14.7 % M-Mode Dimensions EPSS 0.4 cm LA (MM) 2.9 (1.6-4.0cm) Ao Root(MM) 2.2 (2.0-3.7cm) Aortic Valve AoV Vmax 1.5 m/s Ao Peak GR 9.1 mmHg LVOT Vmax 0.9 m/s AoV VTI 0.3 m Ao Mean GR 5.2 mmHg LVOT VTI 0.17 m JABARI (VMAX) 1.70 cm2 JABARI (VTI) 1.6 cm2 Mitral Valve MV E Vmax 106.6 cm/s DECEL Time 138 ms MVA (VTI) 2.00 cm2 MV A Vmax 90.5 cm/s P 1/2 T 34 ms E/A ratio 1.2 MVA (PHT) 6.5 cm2 TDI E/E' Medial 15.5 E/E' Lateral 13.1 Medial E' Peak V 6.88 cm/s Lateral E' Peak V 8.11 cm/s Pulmonary Valve PV Vmax 1.2 m/s PV VTI 0.19 m PV Mean GR 3.3 mmHg PV Peak GR 5.8 mmHg Tricuspid Valve TR Vmax 1.4 m/s RAP (EST) 3 mmHg RVSP 11.3 mmHg TR Peak GR 8.3 mmHg Left Ventricle The left ventricle is normal size. GLS -15.0% No regional wall motion abnormality. Moderate concentric left ventricular hypertrophy. LVEF is 50%. Indeterminate diastolic dysfunction. Right Ventricle The right ventricle is normal size. The right ventricular systolic function is normal. Atria The left atrium size is normal. Atrial septum is bowed toward the right. The right atrium is small in size. Aortic Valve The aortic valve appears to open well. No aortic regurgitation is present. There is no aortic valvular stenosis. Mitral Valve Hockey-stick appearance of Anterior mitral leaflet, but no significant stenosis by doppler measurement. The mitral valve is mildly thickened. Mitral valve appears rheumatic. There is trivial mitral valve regurgitation noted. There is no mitral valve stenosis. Tricuspid Valve The tricuspid valve is normal in structure. There is trace of tricuspid valve regurgitation noted. Pulmonic Valve The pulmonary valve is normal in structure. There is trivial pulmonic valvular regurgitation. Great Vessels The aortic root is normal in size. The IVC is small in size and collapses >50% with inspiration. Pericardium There is no pericardial effusion. Other Information Quality : Technically difficult study due to body habitus Conclusion LVEF is 50%. Moderate concentric left ventricular hypertrophy. DICTATED BY: OZZY UNGER MD DATE: 03/16/25 1508 ELECTRONICALLY SIGNED BY: OZZY UNGER MD DATE: 03/16/25 4677 [place] [address] [id number] IMAGING REPORT Signed PATIENT: ANGELA BALLARD MR#: [id number] : 1985 SEX: F AGE: 39 LOCATION: DIRECT ORDER STATUS: ADM IN REPORT#: [id number] SERVICE 1522 REASON: leg weakness, assess for PVD ORDERING PHYSICIAN: SERAFIN MEDEIROS MD PROCEDURE: ART B LE - US ARTERIAL BILAT LOW EXT DUPL Exam: Bilateral lower extremity arterial ultrasound. Technique: Static grayscale and Doppler images were obtained History: Leg weakness Comparison: None Right side: WINE BLENDER systolic: 172 cm/s Waveform: Triphasic SFA proximal systolic: 113 cm/s Waveform: Triphasic SFA mid systolic: 128 cm/s Waveform: Triphasic SFA distal systolic: 127 cm/s Waveform: Triphasic Popliteal artery systolic: 93/79 cm/s Waveform triphasic Anterior tibial artery systolic: 72 cm/s Waveform triphasic Posterior tibial artery systolic 40 cm/s Waveform triphasic DPA: 46 cm/s. Waveform: Triphasic Left side: WINE BLENDER systolic: 138 cm/s Waveform: Triphasic SFA proximal systolic: 113 cm/s Waveform: Triphasic SFA mid systolic: 122 cm/s Waveform: Triphasic SFA distal systolic: 90 cm/s Waveform: Triphasic Popliteal artery systolic: 102/96 cm/s Waveform triphasic Anterior tibial artery systolic: 114 cm/s Waveform triphasic Posterior tibial artery systolic 40 cm/s Waveform triphasic. DPA: 110 cm/s. Waveform: Triphasic IMPRESSION: 1. No acute findings. Normal bilateral lower extremity arterial ultrasound. /[place] DICTATED BY: JIGAR ROQUE MD DATE: 03/16/251822 ELECTRONICALLY SIGNED BY: JIGAR ROQUE MD DATE: 03/16/251822 ASSESSMENT: Suspected coarctation of aorta status post repair as a child Progressive dyspnea on exertion. Differential secondary to coarctation of aorta versus CHF Lower extremity weakness Hypertension Insulin dependent diabetes mellitus chest pain PLAN: Progressive dyspnea on exertion. Differential secondary to coarctation of aorta versus CHF * Will monitor blood pressure in both arms and both lower extremity to assess for significant gradients * EKG ordered, which showed normal sinus rhythm without any abnormalities. * Troponin - 5, BNP- 41, * ECHO was ordered, results show LVEF of 50%, Moderate Left ventricular hypertrophy. * CTA was ordered which showed focal coarctation of aorta, 1.6 cm * Cardiology was consulted and CT Cardiac Angiography with contrast was ordered, awaiting results. * Chest X-ray showed borderline cardiomegaly. Lower extremity weakness * b/l lower extremity weakness w/ decreased motor strength. * US B/L lower extremity Duplex scan was ordered, results were unremarkable. * Neurology was consulted, awaiting recommendations. * CT lumbar spine, CT Thoracic spine, CT head w/o contrast was ordered. CT lumbar spine, thoracic spine results were unremarkable. Ct head findings were unremarkable. * Vitamin B12 was ordered, results show 451. * Ankle X-ray of right foot was ordered, which was unremarkable Suspected coarctation of aorta status post repair as a child * H/O coarctation of aorta s/p repair when she was 23 days old Insulin dependent diabetes mellitus * H/O type 1 DM. HbA1c of 6.5 * Endocrinology was consulted, will follow their recommendations. Chest pain * EKG ordered, which showed normal sinus rhythm without any abnormalities. * Troponin - 5, BNP- 41, * ECHO was ordered, results show LVEF of 50%, Moderate Left ventricular hypertrophy. * CTA was ordered which showed focal coarctation of aorta, 1.6 cm * Cardiology was consulted and CT Cardiac Angiography with contrast was ordered, awaiting results. * Chest X-ray showed borderline cardiomegaly. ATTESTATION BY PHYSICIAN I have seen and examined the patient. I reviewed the documentation, medical decision making, and treatment plan as noted by the resident provider above. I agree with the findings and plan of care. LISHA MARTINEZ MD, SHAJI MD Mar 17, 2025 13:34
--- NOTE | 2025-03-17 14:48 | HMCIMG ---
Exam: NONCONTRAST CT BRAIN REASON: bilateral lower extremity weakness. COMPARISON: None. TECHNIQUE: Images are obtained from vertex to the skull base. The exam was performed without IV contrast. FINDINGS: There is normal appearing brain parenchyma. There are no focal mass lesions. There is is no evidence of intracranial hemorrhage or acute stroke. Ventricles and sulci appear normal. Posterior fossa and brainstem structures are unremarkable. Paranasal sinuses and remaining extracranial soft tissues appear normal as well. IMPRESSION: 1. Normal noncontrast CT brain. CT was performed with one or more following dose reduction techniques: automated exposure control, adjustment of the mA and kv according to patient's size, or use of a iterative reconstruction technique.
--- NOTE | 2025-03-17 14:51 | HMCIMG ---
CT THORACIC SPINE W/O CONTRAST HISTORY: bilateral lower extremity weakness COMPARISON: None TECHNIQUE: Sequential axial images of thoracic spine without contrast and with sagittal and coronal reconstructions FINDINGS: There is normal alignment of thoracic vertebrae. No vertebral body height loss or fractures noted. Disc space height is preserved throughout. The central canal and neural foramen appear patent. Prevertebral soft tissues are unremarkable. IMPRESSION: No acute abnormality present.
--- NOTE | 2025-03-17 14:55 | HMCIMG ---
CT LUMBAR SPINE W/O CONTRAST HISTORY: bilateral lower extremity weakness COMPARISON: None TECHNIQUE: CT lumbar spine was performed with/without IV contrast. Coronal and sagittal reformats were submitted for review. CONTRAST: mL of Isovue FINDINGS: Evaluation of the cord is limited with CT. No evidence of compression fracture or subluxation. Multilevel spondylosis. No disc degenerative disease.Paraspinal soft tissues are unremarkable. Aorta is normal in caliber. For the purposes of this dictation, the lowermost, fully formed disc will be counted as the L5-S1 disc level assuming 5 nonrib-bearing lumbar vertebral segments. There are marginal spur suggesting of osteoarthritic changes most pronounced as compared endplate of L3 followed by L2. INTRAVERTEBRAL LEVELS: L1-2: No disc herniation or bulge. No central canal stenosis or neural foraminal narrowing. L2-3: No disc herniation or bulge. No central canal stenosis or neural foraminal narrowing. L3-4: No disc herniation or bulge. No central canal stenosis or neural foraminal narrowing. L4-5: No disc herniation or bulge. No central canal stenosis or neural foraminal narrowing. L5-S1: No disc herniation or bulge. No central canal stenosis or neural foraminal narrowing. IMPRESSION: No acute fracture or malalignment. No evidence of spinal canal stenosis or herniated nuclear pulposus. There are marginal ventral spurs seen in the superior endplate of L3 and L2.
--- NOTE | 2025-03-17 20:27 | CONS ---
CONSULTATION NOTE Date of Service: Mar 17, 2025 Reason for Consultation: Chronic progressive Bilateral lower extremity weakness Requesting Physician: Hospitalist HISTORY OF PRESENT ILLNESS: Ms. Mahan 39-year-old right-handed female with a history of type 1 diabetes, coarctation of the aorta with surgical repair, and premature presenting with progressive muscle weakness in her legs, shortness of breath with minimal exertion, and frequent falls over the past 9 months. The patient reports that her symptoms began in June 2024 with weakness in her ankles, initially attributing this to lack of exercise. She attempted to walk more but experienced balance issues. By August or September, her symptoms progressed to include fatigue, leg soreness, and significant weakness that prevented her from walking. In September, she fell at home and sprained her right ankle, requiring evaluation at [facility] where x-rays showed no fractures. Her primary care physician, Dr. You Mcgrath at the [facility], recommended staying off the ankle for 2 weeks, after which she resumed walking slowly. The patient describes morning stiffness in her muscles and legs, requiring stretching before leaving the house. She experiences shortness of breath with minimal distances, such as walking from her car to elevators, and feels like she is going to fall. She has fallen 12 to 14 times within the last 6 months. The weakness in her legs makes it difficult to climb stairs. From April to June, she experienced pain from her back to her right foot that occurred while sitting, lying down, and walking, describing it as sciatic pain from the middle of her right side to her right leg. Currently, she does not have leg pain but experiences soreness when walking that feels like she worked out. Her feet become cold, but not her entire legs. The patient saw catalogue illustrator Dr. Jillian Leavitt yesterday for her first cardiology appointment. Dr. Leavitt explained that her symptoms could be related to her coarctation disorder and narrowing of stents, which could affect oxygen and blood flow to her lower extremities. 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 Cardiovascular: Positive for shortness of breath with minimal exertion. Musculoskeletal: Positive for muscle weakness in legs, leg soreness with walking, and difficulty climbing stairs. Negative for current leg pain. Neurological: Positive for frequent falls and loss of balance. REVIEW OF SYSTEMS General: Positive for fatigue and muscle stiffness in the mornings. Cardiovascular: Positive for shortness of breath with minimal exertion. Musculoskeletal: Positive for muscle weakness in legs, leg soreness with walking, and difficulty climbing stairs. Negative for current leg pain. Neurological: Positive for frequent falls and loss of balance. PAST MEDICAL HISTORY: As above PAST SURGICAL HISTORY: As above PAST SOCIAL HISTORY: No tobacco alcohol recreational drug abuse FAMILY HISTORY: None Coded Allergies: levofloxacin (Unverified Allergy, Unknown, NAUSEA/VOMITING, 03/16/25) PHYSICAL EXAM Mental status: The patient is alert, attentive, and oriented. Speech is clear and fluent with good repetition, comprehension, and naming. Pt recalls 3/3 objects at 5 minutes. Cranial nerves: CN II: Visual valdez are full to confrontation. CN III, IV, : At primary gaze, there is no eye deviation. CN V: Facial sensation is intact to pinprick in all 3 divisions bilaterally. Corneal responses are intact. CN VII: Face is symmetric with normal eye closure and smile. CN VIII: Hearing is normal to rubbing fingers CN IX, X: Palate elevates symmetrically. Phonation is normal. CN XI: Head turning and shoulder shrug are intact CN XII: Tongue is midline with normal movements and no atrophy. Motor: The patient has bilateral hip flexion weakness 3/5 Reflexes: Reflexes are 0+ and symmetric at the biceps, triceps, knees, and ankles. Plantar responses are flexor. Sensory: Light touch, pinprick, position sense, and vibration sense are intact in fingers and toes. Coordination: Rapid alternating movements and fine finger movements are intact. There is no dysmetria on [id number] and [id number]. There are no abnormal or extraneous movements. Romberg is absent. Gait/Stance: Not evaluated Vital Sign (Last 24 Hours) 03/17/25 07:33 O2 Flow Rate 0 FiO2 21 Intake & Output (last 24hrs) 03/16/25 03/16/25 03/17/25 15:00 23:00 07:00 Intake Total 240 ml Balance 240 ml LABS: Laboratory: Test 03/17/25 19:21 03/17/25 03:17 03/16/25 16:27 03/16/25 15:07 Range/Units Whole Blood Glucose 227 H 70-110 MG/DL Sodium Level 141 136-145 mmol/L Potassium Level 3.7 3.5-5.1 mmol/L Chloride Level 108 101-111 mmol/L Carbon Dioxide Level 24 21-32 mmol/L Blood Urea Nitrogen 21 H 7-18 mg/dL Creatinine 0.4 L 0.5-1.0 mg/dL Glomerular Filtration Rate Calc 127 >90 mL/min Random Glucose 89 70-105 mg/dL Total Calcium 8.2 L 8.5-10.1 mg/dL Magnesium Level 2.00 1.80-2.40 mg/dL Total Bilirubin 0.2 # 0.2-1.0 mg/dL Aspartate Amino Transf (AST/SGOT) 18 10-37 U/L Alanine Aminotransferase (ALT/SGPT) 17 # 12-78 U/L Alkaline Phosphatase 65 # 50-136 U/L Total Protein 6.5 6.0-8.3 g/dL Albumin 2.7 L 3.5-5.0 g/dL Vitamin B12 Level 451 193-986 pg/mL Thyroid Stimulating Hormone (TSH) 1.87 # 0.36-3.74 uIU/mL Urine Color LIGHT-YELLOW YELLOW Urine Appearance CLOUDY H CLEAR Urine pH 6.0 5.0-8.0 Urine Specific [place] 1.015 1.001-1.031 Urine Protein 50 H NEGATIVE mg/dL Urine Glucose (UA) NEGATIVE NEGATIVE mg/dL Urine Ketones NEGATIVE NEGATIVE mg/dL Urine Occult Blood NEGATIVE NEGATIVE Urine Nitrate 2+ H NEGATIVE Urine Bilirubin NEGATIVE NEGATIVE mg/dL Urine Urobilinogen 0.2 0.2-1.0 mg/dL Urine Leukocyte Esterase NEGATIVE NEGATIVE Aidan/uL Urine RBC 2-5 H 0-1 /HPF Urine WBC 2-5 H 0-1 /HPF Urine Squamous Epithelial Cells RARE 0-2 /HPF Urine Bacteria MOD None Seen /HPF Urine HCG, Qualitative NEGATIVE NEGATIVE White Blood Count 9.4 4.8-10.8 K/uL Red Blood Count 3.94 L 4.00-5.50 MIL/uL Hemoglobin 11.8 L 12.0-16.0 g/dL Hematocrit 34.7 L 36-48 % Mean Corpuscular Volume 88.1 79-99 fL Mean Corpuscular Hemoglobin 29.9 27.0-33.0 pg Mean Corpuscular Hemoglobin Concent 34.0 32.0-36.0 g/dL Red Cell Distribution Width 12.3 11.0-15.5 % Platelet Count 334 130-400 K/uL Mean Platelet Volume 10.5 7.5-10.5 fL Immature Granulocyte % (Auto) 0.3 0-1 % Neutrophils (%) (Auto) 73.5 40.0-77.0 % Lymphocytes (%) (Auto) 17.3 L 21.0-51.0 % Monocytes (%) (Auto) 7.2 3.0-13.0 % Eosinophils (%) (Auto) 1.5 0.0-8.0 % Basophils (%) (Auto) 0.2 0.0-5.0 % Neutrophils # (Auto) 6.9 1.8-7.7 K/uL Lymphocytes # (Auto) 1.6 1.0-4.8 K/uL Monocytes # (Auto) 0.7 0.1-1.0 K/uL Eosinophils # (Auto) 0.14 0.00-0.70 K/uL Basophils # (Auto) 0.02 0.00-0.20 K/uL Absolute Immature Granulocyte (auto 0.03 0-1 K/uL Nucleated Red Blood Cells 0.0 0.0-0.19 % Hemoglobin A1c 6.5 H 4.0-6.0 % Estimated Average Glucose (eAG) 140 H 70-126 mg/dL Troponin I High Sensitivity 5 4-50 ng/L B-Type Natriuretic Peptide 41 0-100 pg/mL Procalcitonin < 0.05 L 0.05-0.5 ng/mL DIAGNOSTICS / RADIOLOGY: CT scan of the lumbar spine CT scan of the thoracic spine normal ASSESSMENT / PLAN: Ms. Mahan is a 39-year-old female with a history of type 1 diabetes and coarctation of aorta repair presenting with 9 months of progressive bilateral lower extremity weakness, frequent falls, and shortness of breath on exertion. Progressive lower extremity weakness Assessment: Patient presents with 9-month history of progressive bilateral lower extremity weakness beginning in June with ankle weakness, progressing to significant functional impairment with 12-14 falls over the past 6 months. Symptoms include morning stiffness requiring stretching, difficulty with stairs, balance issues, and associated shortness of breath with minimal exertion. CT scan of lumbar spine shows no fractures, osteoporosis, or osteoarthritis. Vibration sensation appears diminished in lower extremities compared to knees. Differential diagnosis includes disc herniation with nerve compression, vascular compromise related to aortic coarctation and stent narrowing affecting lower extremity blood flow, autoimmune disorders, or peripheral neuropathy potentially related to diabetes history. Other possible diagnosis includes CIDP. Plan: - MRI of lumbar spine to evaluate for disc herniation and nerve compression - EMG neuroconduction study as outpatient to assess electrical activity from s pine to legs and identify lower extremity nerve injuries - Primary care physician referral required for EMG test - Cardiology follow-up with Dr. Leavitt for review of echocardiogram and CT scan with contrast results Shortness of breath on exertion Assessment: Patient reports shortness of breath with minimal exertion, such as walking from car to elevator. Per cardiology evaluation with Dr. Leavitt, symptoms may be related to aortic coarctation disorder and narrowing of stents causing decreased oxygen and blood flow to lower extremities. Echocardiogram and CT scan with contrast performed today pending review. Plan: - Cardiology follow-up with Dr. Leavitt tomorrow for review of echocardiogram and CT scan with contrast results History of sciatic pain Assessment: Patient experienced sciatic-type pain from back to right foot occurring from April to June, present in all positions including sitting, lying, and walking. Pain has since resolved. CT scan of thoracic and lumbar spine ordered by Dr. Medeiros shows no abnormalities, but CT imaging has limitations for disc visualization compared to MRI. Plan: - MRI of lumbar spine to better evaluate disc pathology and potential nerve compression Thank you for your consultation DICK CONSTANTINO MD Mar 17, 2025 20:27
--- NOTE | 2025-03-17 20:41 | CARDIOLOGY ---
RAD REPORT: HAMELARY CT ANGIO RADIOLOGY REPORT: CORONARY CT ANGIOGRAPHY DATE: Mar 17, 2025 QUALITY: Excellent CLINICAL HISTORY AND INDICATION: [chest pain ] TECHNIQUE: After obtaining a preliminary consumer insights intern image, contrast imaging performed on an [employer]illon [id number] scanner. A dedicated, limited window, coronary imaging protocol was used, with single breath-hold, retrospective ECG gating, and automated arrhythmia rejection. 100 cc of low osmolar contrast agent: Omnipaque 350 was delivered via a 18-gauge IV catheter in the right antecubital fossa, using a power injector and followed by 60 cc of normal saline bolus as a chaser. Collimated images were reformatted at 0.5 mm intervals, and sent to an offline independent workstation for interpretation, using 3D anatomic reconstructions: Curved multiplanar reconstructions, maximum intensity projections, and multiplanar imaging. 20 mg IV metoprolol was administered prior to scanning. 0.8 mg SL nitroglycerin was given. CORONARY ARTERY DESCRIPTIONS: The LAD and the LCx have separate ostia. Left anterior descending coronary artery: Normal caliber vessel and gives rise to diagonal and septal branches. No stenosis. Left circumflex coronary artery: Normal caliber, dominant and gives rise to a large OM branch. No stenosis. Right coronary artery: Small, non-dominant vessel. No stenosis. CAD-RADs: 0, absence of CAD. Thoracic Aorta: Coarctation of the aorta with >75% reduction in diameter. Jillian Leavitt MD Cardiovascular Disease [facility] JILLIAN LEAVITT MD Mar 17, 2025 20:41
[2025-03-18] VITALS (11 sets, daily range): BP systolic 96–165; BP diastolic 59–134; PULSE 78–96; RESP 16–22; TEMP 97.3–98.1; O2SAT 99
[2025-03-18 03:44] LABS: IMMATURE GRANULOCYTE ABSOLUTE 0.03 K/uL (0-1); NUCLEATED RED BLOOD CELLS 0.0 % (0.0-0.19); PLATELET COUNT (AUTO) 288 K/uL (130-400); RED BLOOD CELL COUNT(AUTO) 3.42 MIL/uL (4.00-5.50); RED CELL DISTRIBUTION WIDTH 12.5 % (11.0-15.5); WHITE BLOOD COUNT (AUTO) 9.2 K/uL (4.8-10.8)
[2025-03-18 04:05] LABS: CREATININE 0.6 mg/dL (0.5-1.0); GLOMERULAR FILTR. RATE CALC 116.0 mL/min (>90); GLUCOSE,RANDOM 209.0 mg/dL (70-105); SODIUM SERUM 139.0 mmol/L (136-145); UREA NITROGEN, BLOOD 26.0 mg/dL (7-18)
--- NOTE | 2025-03-18 08:24 | PN ---
[facility] CARDIOLOGY PROGRESS NOTE Date Patient Seen: Mar 18, 2025 Time of Visit: 08:23 Interval History: [Continued leg weakness ] Physical Examination: GENERAL: [No acute distress.] HEAD: [Normal with no signs of head trauma.] EYES: [PERRLA, EOMI, conjunctiva and sclera normal.] ENT: [Hearing grossly intact, normal oropharynx.] NECK: [Supple without JVD. There is no tenderness, lymphadenopathy, or masses. No thyromegaly. Normal carotid upstrokes without bruits.] LUNGS: [Clear breath sounds bilaterally. There are right basilar rales one third of the way up the chest. No wheezes, or rhonchi.] HEART: [Normal rate and rhythm. Normal S1 and S2 without mumurs, gallop or rub.] VASC: [Peripheral pulses +2 bilaterally.] ABD: [Bowel sounds normal, soft, nontender, no masses, no organomegaly. No audible bruits.] : [Not examined] LYMPH: [No lymphadenopathy noted.] EXT: [No clubbing, cyanosis or edema.] SKIN: [No rashes or lesions noted.] NEURO: [Awake, alert, and oriented x3. No focal sensory or strength deficits noted.] Laboratory: [ ] Hematology Labs: Test 03/18/25 03:16 Range/Units White Blood Count 9.2 4.8-10.8 K/uL Red Blood Count 3.42 L 4.00-5.50 MIL/uL Hemoglobin 10.4 L 12.0-16.0 g/dL Hematocrit 29.7 L 36-48 % Mean Corpuscular Volume 86.8 79-99 fL Mean Corpuscular Hemoglobin 30.4 27.0-33.0 pg Mean Corpuscular Hemoglobin Concent 35.0 32.0-36.0 g/dL Red Cell Distribution Width 12.5 11.0-15.5 % Platelet Count 288 130-400 K/uL Mean Platelet Volume 11.1 H 7.5-10.5 fL Immature Granulocyte % (Auto) 0.3 0-1 % Neutrophils (%) (Auto) 60.7 40.0-77.0 % Lymphocytes (%) (Auto) 26.8 21.0-51.0 % Monocytes (%) (Auto) 9.2 3.0-13.0 % Eosinophils (%) (Auto) 2.6 0.0-8.0 % Basophils (%) (Auto) 0.4 0.0-5.0 % Neutrophils # (Auto) 5.6 1.8-7.7 K/uL Lymphocytes # (Auto) 2.5 1.0-4.8 K/uL Monocytes # (Auto) 0.9 0.1-1.0 K/uL Eosinophils # (Auto) 0.24 0.00-0.70 K/uL Basophils # (Auto) 0.04 0.00-0.20 K/uL Absolute Immature Granulocyte (auto 0.03 0-1 K/uL Nucleated Red Blood Cells 0.0 0.0-0.19 % Chemistry Labs: Test 03/18/25 05:12 03/18/25 03:16 03/17/25 03:17 03/16/25 15:07 Range/Units Whole Blood Glucose 152 H 70-110 MG/DL Sodium Level 139 136-145 mmol/L Potassium Level 3.9 3.5-5.1 mmol/L Chloride Level 106 101-111 mmol/L Carbon Dioxide Level 23 21-32 mmol/L Blood Urea Nitrogen 26 H 7-18 mg/dL Creatinine 0.6 0.5-1.0 mg/dL Glomerular Filtration Rate Calc 116 >90 mL/min Random Glucose 209 #H 70-105 mg/dL Total Calcium 7.8 L 8.5-10.1 mg/dL Magnesium Level 2.00 1.80-2.40 mg/dL Total Bilirubin 0.2 # 0.2-1.0 mg/dL Aspartate Amino Transf (AST/SGOT) 18 10-37 U/L Alanine Aminotransferase (ALT/SGPT) 17 # 12-78 U/L Alkaline Phosphatase 65 # 50-136 U/L Total Protein 6.5 6.0-8.3 g/dL Albumin 2.7 L 3.5-5.0 g/dL Vitamin B12 Level 451 193-986 pg/mL Thyroid Stimulating Hormone (TSH) 1.87 # 0.36-3.74 uIU/mL Hemoglobin A1c 6.5 H 4.0-6.0 % Estimated Average Glucose (eAG) 140 H 70-126 mg/dL Troponin I High Sensitivity 5 4-50 ng/L B-Type Natriuretic Peptide 41 0-100 pg/mL Procalcitonin < 0.05 L 0.05-0.5 ng/mL Diagnostics / Radiology: [Copy/Paste Echos/Imaging Report here] Impression and Plan: [ DM History of coarctation of aorta s/p repair as an infant] Plan: [ #History of coarctation of aorta s/p repair as an now with recurrence -CCTA absence of CAD, however, >75% reduction in diameter of coarctation of the aorta -Echo limited views of descending aorta, but was otherwise normal ->20 SBP drop in RUE compared to LUE -pending upper and lower BP measurements -will have Dr Cooper evaluate on Friday Jillian Leavitt MD] JILLIAN LEAVITT MD Mar 18, 2025 08:24
--- NOTE | 2025-03-18 12:52 | NUR ---
Nutrition consult per nutrition education Reviewed labs, notes, and medications. Pt on 60 gm cho + prostat jello tid w/ trays, insulin, elevated BUN 26, Cr WNL, BG 152(H), Ca 7.8(L), A1C 6.5 per chart review. 75%PO intake, wt via standing scale, last BM 03/16/25, well nourished, no edema, no wounds, 240 ml balance 03/17/25 per nursing. Pt reported sees PCP every 6 months, sees criminal researcher every 3 months, denied issues chewing or swallowing, good appetite, takes MVI QD, does not like protein shakes, agreeable to prostat jello, requested kitchen chef salad for lunch moving forward, last BM 03/18/25 in AM, takes care of diet due to T1DM pending heart stent on Friday. RD reviewed MNT for T1DM, Pt verbalized understanding. A1C <7, optimal. Recommendations: -Provide 60 gm cho + kitchen chef salads for lunch only + prostat jello tid w/ trays -Monitor PO intake -Encourage PO intake as able -[place] Pt's preferences -Monitor BM -If no BM >3 days consider stool softener -Monitor electrolytes -Replenish electrolytes per protocol -Monitor wts -Reweigh as able -Order Vit D, vit b-12 labs to rule out deficiencies -Provide MVI QD -Recommend Pt to follow up with PCP -Monitor goals of care RD to follow + available for consult per protocol Addendum: 03/18/25 at [address] Amended: Links added.
--- NOTE | 2025-03-18 13:48 | PN ---
[facility] PROGRESS NOTE Date of Service: Mar 18, 2025 Time of Service: 13:31 HISTORY OF PRESENT ILLNESS: 39-year-old female with past medical history insulin dependent diabetes mellitus, history of coarctation of aorta status post surgery as a child who presented the hospital secondary to shortness of breath with exertion, chest pain, lower extremity weakness. Patient states since January last year she has noted that she has been having progressive shortness of breath. Her shortness of breath is present with exertional mainly ambulation. She can take 20s steps before getting short of. She also gets mildly short of breath with daily activities including cooking. She complains of midsternal chest pain which radiates towards her back. She describes the pain as heartburn in nature. She currently does not have any active chest pain when she came to the hospital. She denied any upper extremity numbness, weakness. Additionally she has also noted that she is having progressive weakness of her lower extremity. She has a difficult time with ambulation. She does ambulate at home. She had sprained her right ankle around one year ago and has noted pain in the ankle. She had x- ray done in the ER and she was treated for sprain conservatively. She denies any previous history of hypertension. She went to see her primary personal service representative Dr. Leavitt today where she was recommended to come to the hospital for further evaluation. She was sent as a direct admission. Furthermore she has a history of insulin dependent diabetes and currently takes Tresiba and Humalog at home. Patient's blood pressure on presentation was 167/72, heart rate was in the 90s, temperature was 99.0 SUBJECTIVE: 03/17/25: Patient was seen in room 220, along with her . Patient was alert, awake and oriented. Patient reports shortness of breath with exertion, weakness in her B/L lower extremities. Patient reports ankle pain in her right foot, attributes it to her ankle sprain which she had a few days ago. Patient reports recurrent buckling of her knee joints. Patient denies cramping in her b/l lower extremities. Patient denies any paresthesia in extremities. Patient denies any motor weakness in b/l upper extremities. Patient denied fever, chills, palpitations. Patient denies any current chest pain. 03/18/25: Patient was seen in room 220, along with her . Patient was aler t, awake and oriented. Patient doesn't have any active complaints. Patient was informed by Dr. Leavitt that she has coarctation of aorta at the same previous site she got operated for during her childhood. Patient asked when will her scheduled MRI be done today. Patient denies cramping in her b/l lower extremities. Patient denies any paresthesia in extremities. Patient denies any motor weakness in b/l upper extremities. Patient denied fever, chills, palpitations. Patient denies any current chest pain. there was >20 SBP drop in right upper extremity compared to left upper extremity. REVIEW OF SYSTEMS CONSTITUTIONAL: Denies fevers, chills, or night sweats. No unintentional weight loss reported. NEUROLOGICAL: Denies headache, amaurosis fugax, motor weakness, sensory deficit, vertigo/spinning sensation, gait abnormalities, or tremors. ENT: No hearing loss, otalgia, otorrhea, rhinitis, rhinorrhea, hoarseness, or sore throat. CARDIOVASCULAR: Positive for dyspnea on exertion, PULMONARY: Denies any shortness of breath, cough, phlegm/sputum, hemoptysis, pleuritic chest pain. SLEEP: Denies morning headaches, daytime somnolence or napping. Denies difficulty falling asleep, staying asleep, waking from sleep. Denies knowledge of snoring. GASTROINTESTINAL: Denies any type of dysphagia to either liquids or solids. Denies nausea, vomiting, pyrosis, early satiety, abdominal pain, diarrhea, constipation, or changes in stool consistency or caliber. Denies coffee-ground emesis, hematemesis, hematochezia, or melanotic stools. GENITOURINARY: Denies frequency, urgency, nocturia, hematuria or incontinence (Storage/Irritative symptoms.) Low urinary stream, straining to void, urinary intermittency or hesitancy, splitting of the voiding stream, terminal dribbling. ENDOCRINOLOGIC: Denies polyuria, polydipsia, polyphagia or heat/cold intolerances. HEMATOLOGIC: Denies thrombophilia/previous clots, or coagulopathy/bleeding disorders. ONCOLOGIC: Denies personal history of malignancy. DERMATOLOGIC: Denies rashes or pruritus. PSYCHIATRIC: Denies any suicidal or homicidal ideation. Denies hallucinations. PHYSICAL EXAM GENERAL APPEARANCE: The patient is awake, alert, and oriented, in no acute cardiopulmonary distress. NEUROLOGICAL: Cranial nerves II-XII grossly intact. Motor is 5/5 in bilateral upper and lower extremities proximal to distal. No sensory deficits. HEENT: Face is symmetric. Pupils are equal and reactive. Extraocular movements are intact. NECK: Supple. No JVD. No thyromegaly. No submental, submandibular, pre- /postauricular, occipital or supraclavicular lymphadenopathy. CHEST: Normal chest expansion. No Telemetry. LUNGS: Absence of any rales, rhonchi or any wheezing. CARDIOVASCULAR: Regular. S1 and S2 normal. No appreciable rubs, murmurs or gallops. ABDOMEN: Soft, nontender, and nondistended. There is no rebound, voluntary guarding, or rigidity. : Deferred. No Cope. EXTREMITIES: Patient's lower extremity he is thin. She does move her lower extremities without issue. Unable to dorsiflex her right ankle secondary to pain. motor strength in left lower extremity. SKIN: No skin breakdown. Vital Signs (last 8hr) Date Time Temp Pulse Resp B/P (MAP) Pulse Ox O2 Delivery O2 Flow Rate FiO2 03/18/25 13:03 99 Room Air* 0 21 03/18/25 12:15 97.3 91 16 109/76 100 Room Air 03/18/25 08:32 162/134 03/18/25 08:29 165/90 03/18/25 07:52 96/59 03/18/25 07:50 98.1 78 16 125/62 98 Room Air LABS: Laboratory: Test 03/18/25 11:44 03/18/25 03:16 03/17/25 03:17 03/16/25 16:27 Range/Units Whole Blood Glucose 213 H 70-110 MG/DL White Blood Count 9.2 4.8-10.8 K/uL Red Blood Count 3.42 L 4.00-5.50 MIL/uL Hemoglobin 10.4 L 12.0-16.0 g/dL Hematocrit 29.7 L 36-48 % Mean Corpuscular Volume 86.8 79-99 fL Mean Corpuscular Hemoglobin 30.4 27.0-33.0 pg Mean Corpuscular Hemoglobin Concent 35.0 32.0-36.0 g/dL Red Cell Distribution Width 12.5 11.0-15.5 % Platelet Count 288 130-400 K/uL Mean Platelet Volume 11.1 H 7.5-10.5 fL Immature Granulocyte % (Auto) 0.3 0-1 % Neutrophils (%) (Auto) 60.7 40.0-77.0 % Lymphocytes (%) (Auto) 26.8 21.0-51.0 % Monocytes (%) (Auto) 9.2 3.0-13.0 % Eosinophils (%) (Auto) 2.6 0.0-8.0 % Basophils (%) (Auto) 0.4 0.0-5.0 % Neutrophils # (Auto) 5.6 1.8-7.7 K/uL Lymphocytes # (Auto) 2.5 1.0-4.8 K/uL Monocytes # (Auto) 0.9 0.1-1.0 K/uL Eosinophils # (Auto) 0.24 0.00-0.70 K/uL Basophils # (Auto) 0.04 0.00-0.20 K/uL Absolute Immature Granulocyte (auto 0.03 0-1 K/uL Nucleated Red Blood Cells 0.0 0.0-0.19 % Sodium Level 139 136-145 mmol/L Potassium Level 3.9 3.5-5.1 mmol/L Chloride Level 106 101-111 mmol/L Carbon Dioxide Level 23 21-32 mmol/L Blood Urea Nitrogen 26 H 7-18 mg/dL Creatinine 0.6 0.5-1.0 mg/dL Glomerular Filtration Rate Calc 116 >90 mL/min Random Glucose 209 #H 70-105 mg/dL Total Calcium 7.8 L 8.5-10.1 mg/dL Magnesium Level 2.00 1.80-2.40 mg/dL Total Bilirubin 0.2 # 0.2-1.0 mg/dL Aspartate Amino Transf (AST/SGOT) 18 10-37 U/L Alanine Aminotransferase (ALT/SGPT) 17 # 12-78 U/L Alkaline Phosphatase 65 # 50-136 U/L Total Protein 6.5 6.0-8.3 g/dL Albumin 2.7 L 3.5-5.0 g/dL Vitamin B12 Level 451 193-986 pg/mL Thyroid Stimulating Hormone (TSH) 1.87 # 0.36-3.74 uIU/mL Urine Color LIGHT-YELLOW YELLOW Urine Appearance CLOUDY H CLEAR Urine pH 6.0 5.0-8.0 Urine Specific [place] 1.015 1.001-1.031 Urine Protein 50 H NEGATIVE mg/dL Urine Glucose (UA) NEGATIVE NEGATIVE mg/dL Urine Ketones NEGATIVE NEGATIVE mg/dL Urine Occult Blood NEGATIVE NEGATIVE Urine Nitrate 2+ H NEGATIVE Urine Bilirubin NEGATIVE NEGATIVE mg/dL Urine Urobilinogen 0.2 0.2-1.0 mg/dL Urine Leukocyte Esterase NEGATIVE NEGATIVE Aidan/uL Urine RBC 2-5 H 0-1 /HPF Urine WBC 2-5 H 0-1 /HPF Urine Squamous Epithelial Cells RARE 0-2 /HPF Urine Bacteria MOD None Seen /HPF Urine HCG, Qualitative NEGATIVE NEGATIVE Test 03/16/25 15:07 Range/Units Hemoglobin A1c 6.5 H 4.0-6.0 % Estimated Average Glucose (eAG) 140 H 70-126 mg/dL Troponin I High Sensitivity 5 4-50 ng/L B-Type Natriuretic Peptide 41 0-100 pg/mL Procalcitonin < 0.05 L 0.05-0.5 ng/mL Current Medications Medications (Trade) Dose Ordered Sig/Jamila Route PRN Reason Start Time Stop Time Status Last Admin Dose Admin Acetaminophen (TYLenol 500MG TAB) 500 mg Q6H PRN PO MILD PAIN (1-3) 03/16/25 15:00 04/15/25 14:59 Ceftriaxone Sodium (ROCEphine 1G INJ) 1 gm Q24H IVPB 03/18/25 12:30 03/28/25 12:29 Dextrose (D50w) 50 ml AD PRN IV HYPOGLYCEMIA PROTOCOL 03/16/25 15:00 04/15/25 14:59 Famotidine (Pepcid 20mg Vial) 20 mg BID IV 03/16/25 21:00 04/15/25 20:59 03/18/25 08:26 20 MG Glucagon (Glucagon 1mg Kit) 1 mg AD PRN IM HYPOGLYCEMIA PROTOCOL 03/16/25 15:00 04/15/25 14:59 Insulin Glargine (LANtus 100 UNITS/ML 10 ML VIAL) 14 units DAILY SQ 03/17/25 09:00 04/16/25 08:59 03/18/25 08:25 14 UNITS Insulin Glargine (LANtus 100 UNITS/ML 10 ML VIAL) 20 units DAILY SQ 03/17/25 09:00 03/17/25 05:36 DC Insulin Human Regular (humuLIN R 100 UNIT/ML 3ML) 3 unit TIDAC SQ 03/18/25 07:30 03/18/25 12:14 DC 03/18/25 11:58 3 UNIT Insulin Human Regular (humuLIN R 100 UNIT/ML 3ML) 4 unit TIDAC SQ 03/18/25 17:00 04/17/25 16:59 Insulin Human Regular (humuLIN R 100 UNIT/ML 3ML) INSULIN SLIDING SCAL... ACHS SQ 03/16/25 16:30 04/15/25 16:29 03/18/25 11:53 3 UNIT Magnesium Sulfate 50 ml @ 0 mls/hr PROTOCOL PRN IV hypomagnesemia 03/16/25 15:00 04/15/25 14:59 Ondansetron HCl (zoFRAN 4MG INJ) 4 mg Q6H PRN IVP NAUSEA/VOMITING 03/16/25 17:00 04/15/25 16:59 Potassium Chloride 100 ml @ 100 mls/hr AD PRN IV POTASSIUM PROTOCOL 03/16/25 15:00 04/15/25 14:59 Potassium Chloride (K-Dur/Klor-Con 20meq) 20 meq AD PRN PO POTASSIUM PROTOCOL 03/16/25 15:00 04/15/25 14:59 03/17/25 08:09 20 MEQ Potassium Chloride (KCl 10% Elixir 20meq/15ml) 20 meq AD PRN PO POTASSIUM PROTOCOL 03/16/25 15:00 04/15/25 14:59 DIAGNOSTICS / RADIOLOGY: CCTA impression showed absence of CAD, however, >75% reduction in diameter of coarctation of the aorta -Echo limited views of descending aorta, but was otherwise normal ASSESSMENT: Suspected coarctation of aorta status post repair as a child Progressive dyspnea on exertion. Differential secondary to coarctation of aorta versus CHF Lower extremity weakness Hypertension Insulin dependent diabetes mellitus chest pain PLAN: Progressive dyspnea on exertion. Differential secondary to coarctation of aorta versus CHF * Will monitor blood pressure in both arms and both lower extremity to assess for significant gradients * EKG ordered, which showed normal sinus rhythm without any abnormalities. * Troponin - 5, BNP- 41, * ECHO was ordered, results show LVEF of 50%, Moderate Left ventricular hypertrophy. * CTA was ordered which showed focal coarctation of aorta, 1.6 cm * Cardiology was consulted and CT Cardiac Angiography with contrast was ordered, results show absence of CAD, however, >75% reduction in diameter of coarctation of the aorta. Echo limited views of descending aorta, but was otherwise normal. * There was >20 SBP drop in right upper extremity compared to left upper extremity. * CHF was ruled out. * Chest X-ray showed borderline cardiomegaly. Lower extremity weakness * b/l lower extremity weakness w/ decreased motor strength. * US B/L lower extremity Duplex scan was ordered, results were unremarkable. * Neurology was consulted, they recommended MRI of lumbar spine to evaluate for disc herniation and nerve compression. EMG neuroconduction study as outpatient to assess electrical activity from spine to legs and identify lower extremity nerve injuries. Primary care physician referral required for EMG test. * CT lumbar spine, CT Thoracic spine, CT head w/o contrast was ordered. CT lumbar spine, thoracic spine results were unremarkable. Ct head findings were unremarkable. * CT Cardiac Angiography with contrast was ordered, results show absence of CAD, however, >75% reduction in diameter of coarctation of the aorta. * Vitamin B12 was ordered, results show 451. * Ankle X-ray of right foot was ordered, which was unremarkable Suspected coarctation of aorta status post repair as a child * H/O coarctation of aorta s/p repair when she was 23 days old Insulin dependent diabetes mellitus * H/O type 1 DM. HbA1c of 6.5 * Endocrinology was consulted, will follow their recommendations. * As per endocrinology recommendations, Aldosterone serum, renin, plasma metanephrines were ordered will follow with results. Chest pain * EKG ordered, which showed normal sinus rhythm without any abnormalities. * Troponin - 5, BNP- 41, * ECHO was ordered, results show LVEF of 50%, Moderate Left ventricular hypertrophy. * CTA was ordered which showed focal coarctation of aorta, 1.6 cm * Cardiology was consulted and CT Cardiac Angiography with contrast was ordered, results show absence of CAD, however, >75% reduction in diameter of coarctation of the aorta. Echo limited views of descending aorta, but was otherwise normal. * Chest X-ray showed borderline cardiomegaly. ATTESTATION BY PHYSICIAN I have seen and examined the patient. I reviewed the documentation, medical dec ision making, and treatment plan as noted by the resident provider above. I agree with the findings and plan of care. LISHA MARTINEZ MD, SHAJI MD Mar 18, 2025 13:48
--- NOTE | 2025-03-18 14:53 | PN ---
PROGRESS NOTE Date of Service: Mar 18, 2025 Time of Service: 14:50 SUBJECTIVE: The patient has been stable over the past 24 hours no new neurological deficits no new complaints. The patient continues having bilateral lower extremity weakness. According to the nurse and the patient she was diagnosed by Dr. Leavitt with worsening coarctation of the aorta unlikely this as a reason for the lower extremity weakness. MRI of the cervical thoracic and lumbar spine has been pending at this moment REVIEW OF SYSTEMS General: Positive for fatigue and muscle stiffness in the mornings. Cardiovascular: Positive for shortness of breath with minimal exertion. Musculoskeletal: Positive for muscle weakness in legs, leg soreness with walking, and difficulty climbing stairs. Negative for current leg pain. Neurological: Positive for frequent falls and loss of balance. PHYSICAL EXAM Mental status: The patient is alert, attentive, and oriented. Speech is clear and fluent with good repetition, comprehension, and naming. Pt recalls 3/3 objects at 5 minutes. Cranial nerves: CN II: Visual valdez are full to confrontation. CN III, IV, : At primary gaze, there is no eye deviation. CN V: Facial sensation is intact to pinprick in all 3 divisions bilaterally. Corneal responses are intact. CN VII: Face is symmetric with normal eye closure and smile. CN VIII: Hearing is normal to rubbing fingers CN IX, X: Palate elevates symmetrically. Phonation is normal. CN XI: Head turning and shoulder shrug are intact CN XII: Tongue is midline with normal movements and no atrophy. Motor: The patient has bilateral hip flexion weakness 3/5 Reflexes: Reflexes are 0+ and symmetric at the biceps, triceps, knees, and ankles. Plantar responses are flexor. Sensory: Light touch, pinprick, position sense, and vibration sense are intact in fingers and toes. Coordination: Rapid alternating movements and fine finger movements are intact. There is no dysmetria on [id number] and [id number]. There are no abnormal or extra neous movements. Romberg is absent. Gait/Stance: Not evaluated Vital Signs (last 8hr) Date Time Temp Pulse Resp B/P (MAP) Pulse Ox O2 Delivery O2 Flow Rate FiO2 03/18/25 13:03 99 Room Air* 0 21 03/18/25 12:15 97.3 91 16 109/76 100 Room Air 03/18/25 08:32 162/134 03/18/25 08:29 165/90 03/18/25 07:52 96/59 03/18/25 07:50 98.1 78 16 125/62 98 Room Air LABS: Laboratory: Test 03/18/25 11:44 03/18/25 03:16 03/17/25 03:17 03/16/25 16:27 Range/Units Whole Blood Glucose 213 H 70-110 MG/DL White Blood Count 9.2 4.8-10.8 K/uL Red Blood Count 3.42 L 4.00-5.50 MIL/uL Hemoglobin 10.4 L 12.0-16.0 g/dL Hematocrit 29.7 L 36-48 % Mean Corpuscular Volume 86.8 79-99 fL Mean Corpuscular Hemoglobin 30.4 27.0-33.0 pg Mean Corpuscular Hemoglobin Concent 35.0 32.0-36.0 g/dL Red Cell Distribution Width 12.5 11.0-15.5 % Platelet Count 288 130-400 K/uL Mean Platelet Volume 11.1 H 7.5-10.5 fL Immature Granulocyte % (Auto) 0.3 0-1 % Neutrophils (%) (Auto) 60.7 40.0-77.0 % Lymphocytes (%) (Auto) 26.8 21.0-51.0 % Monocytes (%) (Auto) 9.2 3.0-13.0 % Eosinophils (%) (Auto) 2.6 0.0-8.0 % Basophils (%) (Auto) 0.4 0.0-5.0 % Neutrophils # (Auto) 5.6 1.8-7.7 K/uL Lymphocytes # (Auto) 2.5 1.0-4.8 K/uL Monocytes # (Auto) 0.9 0.1-1.0 K/uL Eosinophils # (Auto) 0.24 0.00-0.70 K/uL Basophils # (Auto) 0.04 0.00-0.20 K/uL Absolute Immature Granulocyte (auto 0.03 0-1 K/uL Nucleated Red Blood Cells 0.0 0.0-0.19 % Sodium Level 139 136-145 mmol/L Potassium Level 3.9 3.5-5.1 mmol/L Chloride Level 106 101-111 mmol/L Carbon Dioxide Level 23 21-32 mmol/L Blood Urea Nitrogen 26 H 7-18 mg/dL Creatinine 0.6 0.5-1.0 mg/dL Glomerular Filtration Rate Calc 116 >90 mL/min Random Glucose 209 #H 70-105 mg/dL Total Calcium 7.8 L 8.5-10.1 mg/dL Vitamin B12 Level 376 193-986 pg/mL Magnesium Level 2.00 1.80-2.40 mg/dL Total Bilirubin 0.2 # 0.2-1.0 mg/dL Aspartate Amino Transf (AST/SGOT) 18 10-37 U/L Alanine Aminotransferase (ALT/SGPT) 17 # 12-78 U/L Alkaline Phosphatase 65 # 50-136 U/L Total Protein 6.5 6.0-8.3 g/dL Albumin 2.7 L 3.5-5.0 g/dL Thyroid Stimulating Hormone (TSH) 1.87 # 0.36-3.74 uIU/mL Urine Color LIGHT-YELLOW YELLOW Urine Appearance CLOUDY H CLEAR Urine pH 6.0 5.0-8.0 Urine Specific [place] 1.015 1.001-1.031 Urine Protein 50 H NEGATIVE mg/dL Urine Glucose (UA) NEGATIVE NEGATIVE mg/dL Urine Ketones NEGATIVE NEGATIVE mg/dL Urine Occult Blood NEGATIVE NEGATIVE Urine Nitrate 2+ H NEGATIVE Urine Bilirubin NEGATIVE NEGATIVE mg/dL Urine Urobilinogen 0.2 0.2-1.0 mg/dL Urine Leukocyte Esterase NEGATIVE NEGATIVE Aidan/uL Urine RBC 2-5 H 0-1 /HPF Urine WBC 2-5 H 0-1 /HPF Urine Squamous Epithelial Cells RARE 0-2 /HPF Urine Bacteria MOD None Seen /HPF Urine HCG, Qualitative NEGATIVE NEGATIVE Test 03/16/25 15:07 Range/Units Hemoglobin A1c 6.5 H 4.0-6.0 % Estimated Average Glucose (eAG) 140 H 70-126 mg/dL Troponin I High Sensitivity 5 4-50 ng/L B-Type Natriuretic Peptide 41 0-100 pg/mL Procalcitonin < 0.05 L 0.05-0.5 ng/mL DIAGNOSTICS / RADIOLOGY: CT scan of the lumbar spine CT scan of the thoracic spine normal ASSESSMENT / PLAN: Ms. Mahan is a 39-year-old female with a history of type 1 diabetes and coarctation of aorta repair presenting with 9 months of progressive bilateral lower extremity weakness, frequent falls, and shortness of breath on exertion. Progressive lower extremity weakness Assessment: Patient presents with 9-month history of progressive bilateral lower extremity weakness beginning in June with ankle weakness, progressing to significant functional impairment with 12-14 falls over the past 6 months. Symptoms include morning stiffness requiring stretching, difficulty with stairs, balance issues, and associated shortness of breath with minimal exertion. CT scan of lumbar spine shows no fractures, osteoporosis, or osteoarthritis. Vibration sensation appears diminished in lower extremities compared to knees. Differential diagnosis includes disc herniation with nerve compression, vascular compromise related to aortic coarctation and stent narrowing affecting lower extremity blood flow, autoimmune disorders, or peripheral neuropathy potentially related to diabetes history. Other possible diagnosis includes CIDP. Plan: - MRI of lumbar, cervical thoracic with and without spine to evaluate for disc herniation and nerve compression - EMG neuroconduction study as outpatient to assess electrical activity from spine to legs and identify lower extremity nerve injuries - Primary care physician referral required for EMG test - Cardiology follow-up with Dr. Leavitt for coarctation of the aorta management Shortness of breath on exertion Assessment: Patient reports shortness of breath with minimal exertion, such as walking from car to elevator. Per cardiology evaluation with Dr. Leavitt, symptoms may be related to aortic coarctation disorder and narrowing of stents causing decreased oxygen and blood flow to lower extremities. Echocardiogram and CT scan with contrast performed today pending review. Plan: - Cardiology follow-up with Dr. Leavitt for coarctation of the aorta management History of sciatic pain Assessment: Patient experienced sciatic-type pain from back to right foot occur ring from April to June, present in all positions including sitting, lying, and walking. Pain has since resolved. CT scan of thoracic and lumbar spine ordered by Dr. Medeiros shows no abnormalities, but CT imaging has limitations for disc visualization compared to MRI. Plan: - MRI of cervical, thoracic and lumbar spine with and without contrast to better evaluate disc pathology and potential nerve compression Thank you for your consultation DICK CONSTANTINO MD Mar 18, 2025 14:53
[2025-03-19] VITALS (8 sets, daily range): BP systolic 117–143; BP diastolic 59–79; PULSE 83–92; RESP 20; TEMP 97.9–98.9; O2SAT 95–99
[2025-03-19 04:33] LABS: IMMATURE GRANULOCYTE ABSOLUTE 0.02 K/uL (0-1); NUCLEATED RED BLOOD CELLS 0.0 % (0.0-0.19); PLATELET COUNT (AUTO) 323 K/uL (130-400); RED BLOOD CELL COUNT(AUTO) 3.64 MIL/uL (4.00-5.50); RED CELL DISTRIBUTION WIDTH 12.3 % (11.0-15.5); WHITE BLOOD COUNT (AUTO) 8.9 K/uL (4.8-10.8)
[2025-03-19 04:43] LABS: CREATININE 0.6 mg/dL (0.5-1.0); GLOMERULAR FILTR. RATE CALC 116.0 mL/min (>90); GLUCOSE,RANDOM 87.0 mg/dL (70-105); SODIUM SERUM 141.0 mmol/L (136-145); UREA NITROGEN, BLOOD 24.0 mg/dL (7-18)
--- NOTE | 2025-03-19 12:34 | PN ---
[facility] PROGRESS NOTE Date of Service: Mar 19, 2025 Time of Service: 12:27 HISTORY OF PRESENT ILLNESS: 39-year-old female with past medical history insulin dependent type 1 diabetes mellitus, history of coarctation of aorta status post surgery as a child who presented the hospital secondary to shortness of breath with exertion, chest pain, lower extremity weakness. Patient states since January last year she has noted that she has been having progressive shortness of breath. Her shortness of breath is present with exertional mainly ambulation. She can take 20s steps before getting short of. She also gets mildly short of breath with daily activities including cooking. She complains of midsternal chest pain which radiates towards her back. She describes the pain as heartburn in nature. She currently does not have any active chest pain when she came to the hospital. She denied any upper extremity numbness, weakness. Additionally she has also noted that she is having progressive weakness of her lower extremity. She has a difficult time with ambulation. She does ambulate at home. She had sprained her right ankle around one year ago and has noted pain in the ankle. She had x- ray done in the ER and she was treated for sprain conservatively. She denies any previous history of hypertension. She went to see her primary campus wellness coordinator Dr. Leavitt today where she was recommended to come to the hospital for further evaluation. She was sent as a direct admission. Furthermore she has a history of insulin dependent diabetes and currently takes Tresiba and Humalog at home. Patient's blood pressure on presentation was 167/72, heart rate was in the 90s, temperature was 99.0 SUBJECTIVE: 03/17/25: Patient was seen in room 220, along with her . Patient was alert, awake and oriented. Patient reports shortness of breath with exertion, weakness in her B/L lower extremities. Patient reports ankle pain in her right foot, attributes it to her ankle sprain which she had a few days ago. Patient reports recurrent buckling of her knee joints. Patient denies cramping in her b/l lower extremities. Patient denies any paresthesia in extremities. Patient denies any motor weakness in b/l upper extremities. Patient denied fever, chills, palpitations. Patient denies any current chest pain. 03/18/25: Patient was seen in room 220, along with her . Patient was alert, awake and oriented. Patient doesn't have any active complaints. Patient was informed by Dr. Leavitt that she has coarctation of aorta at the same previous site she got operated for during her childhood. Patient asked when will her scheduled MRI be done today. Patient denies cramping in her b/l lower extremities. Patient denies any paresthesia in extremities. Patient denies any motor weakness in b/l upper extremities. Patient denied fever, chills, palpitations. Patient denies any current chest pain. there was >20 SBP drop in right upper extremity compared to left upper extremity. 03/19/25: Patient was seen in room 220. Patient was alert, awake and oriented. Patient doesn't have any active complaints. Patient had concerns if its necessary to get the MRI done and conveyed that she didn't want to get her MRI done. Patient is waiting for her recommendations from Dr. Cooper on Friday for her coarctation of aorta. Patient denies cramping in her b/l lower extremities. Patient denies any paresthesia in extremities. Patient denies any motor weakness in b/l upper extremities. Patient denied fever, chills, palpitations. Patient denies any current chest pain. REVIEW OF SYSTEMS CONSTITUTIONAL: Denies fevers, chills, or night sweats. No unintentional weight loss reported. NEUROLOGICAL: Denies headache, amaurosis fugax, motor weakness, sensory deficit, vertigo/spinning sensation, gait abnormalities, or tremors. ENT: No hearing loss, otalgia, otorrhea, rhinitis, rhinorrhea, hoarseness, or sore throat. CARDIOVASCULAR: Positive for dyspnea on exertion, PULMONARY: Denies any shortness of breath, cough, phlegm/sputum, hemoptysis, pleuritic chest pain. SLEEP: Denies morning headaches, daytime somnolence or napping. Denies difficulty falling asleep, staying asleep, waking from sleep. Denies knowledge of snoring. GASTROINTESTINAL: Denies any type of dysphagia to either liquids or solids. Denies nausea, vomiting, pyrosis, early satiety, abdominal pain, diarrhea, constipation, or changes in stool consistency or caliber. Denies coffee-ground emesis, hematemesis, hematochezia, or melanotic stools. GENITOURINARY: Denies frequency, urgency, nocturia, hematuria or incontinence (Storage/Irritative symptoms.) Low urinary stream, straining to void, urinary intermittency or hesitancy, splitting of the voiding stream, terminal dribbling. ENDOCRINOLOGIC: Denies polyuria, polydipsia, polyphagia or heat/cold intolerances. HEMATOLOGIC: Denies thrombophilia/previous clots, or coagulopathy/bleeding disorders. ONCOLOGIC: Denies personal history of malignancy. DERMATOLOGIC: Denies rashes or pruritus. PSYCHIATRIC: Denies any suicidal or homicidal ideation. Denies hallucinations. PHYSICAL EXAM GENERAL APPEARANCE: The patient is awake, alert, and oriented, in no acute cardiopulmonary distress. NEUROLOGICAL: Cranial nerves II-XII grossly intact. Motor is 5/5 in bilateral upper and lower extremities proximal to distal. No sensory deficits. HEENT: Face is symmetric. Pupils are equal and reactive. Extraocular movements are intact. NECK: Supple. No JVD. No thyromegaly. No submental, submandibular, pre-/postauricular, occipital or supraclavicular lymphadenopathy. CHEST: Normal chest expansion. No Telemetry. LUNGS: Absence of any rales, rhonchi or any wheezing. CARDIOVASCULAR: Regular. S1 and S2 normal. No appreciable rubs, murmurs or gallops. ABDOMEN: Soft, nontender, and nondistended. There is no rebound, voluntary guarding, or rigidity. : Deferred. No Cope. EXTREMITIES: Patient's lower extremity he is thin. She does move her lower extremities without issue. Unable to dorsiflex her right ankle secondary to pain. motor strength in left lower extremity. SKIN: No skin breakdown. Vital Signs (last 8hr) Date Time Temp Pulse Resp B/P (MAP) Pulse Ox O2 Delivery O2 Flow Rate FiO2 03/19/25 11:00 98.2 87 20 117/71 100 Room Air 03/19/25 07:00 98.4 83 20 120/59 100 Room Air LABS: Laboratory: Test 03/19/25 10:36 03/19/25 04:21 03/18/25 03:16 Range/Units Whole Blood Glucose 130 #H 70-110 MG/DL Bedside Glucose Comment Notified Nurse White Blood Count 8.9 4.8-10.8 K/uL Red Blood Count 3.64 L 4.00-5.50 MIL/uL Hemoglobin 11.1 L 12.0-16.0 g/dL Hematocrit 31.1 L 36-48 % Mean Corpuscular Volume 85.4 79-99 fL Mean Corpuscular Hemoglobin 30.5 27.0-33.0 pg Mean Corpuscular Hemoglobin Concent 35.7 32.0-36.0 g/dL Red Cell Distribution Width 12.3 11.0-15.5 % Platelet Count 323 130-400 K/uL Mean Platelet Volume 10.7 H 7.5-10.5 fL Immature Granulocyte % (Auto) 0.2 0-1 % Neutrophils (%) (Auto) 58.4 40.0-77.0 % Lymphocytes (%) (Auto) 27.4 21.0-51.0 % Monocytes (%) (Auto) 10.3 3.0-13.0 % Eosinophils (%) (Auto) 3.4 0.0-8.0 % Basophils (%) (Auto) 0.3 0.0-5.0 % Neutrophils # (Auto) 5.2 1.8-7.7 K/uL Lymphocytes # (Auto) 2.4 1.0-4.8 K/uL Monocytes # (Auto) 0.9 0.1-1.0 K/uL Eosinophils # (Auto) 0.30 0.00-0.70 K/uL Basophils # (Auto) 0.03 0.00-0.20 K/uL Absolute Immature Granulocyte (auto 0.02 0-1 K/uL Nucleated Red Blood Cells 0.0 0.0-0.19 % Sodium Level 141 136-145 mmol/L Potassium Level 4.6 3.5-5.1 mmol/L Chloride Level 108 101-111 mmol/L Carbon Dioxide Level 27 21-32 mmol/L Blood Urea Nitrogen 24 H 7-18 mg/dL Creatinine 0.6 0.5-1.0 mg/dL Glomerular Filtration Rate Calc 116 >90 mL/min Random Glucose 87 70-105 mg/dL Total Calcium 8.1 L 8.5-10.1 mg/dL Vitamin B12 Level 376 193-986 pg/mL Current Medications Medications (Trade) Dose Ordered Sig/Jamila Route PRN Reason Start Time Stop Time Status Last Admin Dose Admin Acetaminophen (TYLenol 500MG TAB) 500 mg Q6H PRN PO MILD PAIN (1-3) 03/16/25 15:00 04/15/25 14:59 Ceftriaxone Sodium (ROCEphine 1G INJ) 1 gm Q24H IVPB 03/18/25 12:30 03/28/25 12:29 03/19/25 12:18 1 GM Dextrose (D50w) 50 ml AD PRN IV HYPOGLYCEMIA PROTOCOL 03/16/25 15:00 04/15/25 14:59 Famotidine (Pepcid 20mg Vial) 20 mg BID IV 03/16/25 21:00 04/15/25 20:59 03/19/25 08:44 20 MG Glucagon (Glucagon 1mg Kit) 1 mg AD PRN IM HYPOGLYCEMIA PROTOCOL 03/16/25 15:00 04/15/25 14:59 Insulin Glargine (LANtus 100 UNITS/ML 10 ML VIAL) 14 units DAILY SQ 03/17/25 09:00 04/16/25 08:59 03/19/25 08:45 14 UNITS Insulin Glargine (LANtus 100 UNITS/ML 10 ML VIAL) 20 units DAILY SQ 03/17/25 09:00 03/17/25 05:36 DC Insulin Human Regular (humuLIN R 100 UNIT/ML 3ML) 3 unit TIDAC SQ 03/18/25 07:30 03/18/25 12:14 DC 03/18/25 11:58 3 UNIT Insulin Human Regular (humuLIN R 100 UNIT/ML 3ML) 4 unit TIDAC SQ 03/18/25 17:00 04/17/25 16:59 03/19/25 12:17 4 UNIT Insulin Human Regular (humuLIN R 100 UNIT/ML 3ML) INSULIN SLIDING SCAL... ACHS SQ 03/16/25 16:30 04/15/25 16:29 03/18/25 11:53 3 UNIT Magnesium Sulfate 50 ml @ 0 mls/hr PROTOCOL PRN IV hypomagnesemia 03/16/25 15:00 04/15/25 14:59 Ondansetron HCl (zoFRAN 4MG INJ) 4 mg Q6H PRN IVP NAUSEA/VOMITING 03/16/25 17:00 04/15/25 16:59 03/18/25 20:08 4 MG Potassium Chloride 100 ml @ 100 mls/hr AD PRN IV POTASSIUM PROTOCOL 03/16/25 15:00 04/15/25 14:59 Potassium Chloride (K-Dur/Klor-Con 20meq) 20 meq AD PRN PO POTASSIUM PROTOCOL 03/16/25 15:00 04/15/25 14:59 03/17/25 08:09 20 MEQ Potassium Chloride (KCl 10% Elixir 20meq/15ml) 20 meq AD PRN PO POTASSIUM PROTOCOL 03/16/25 15:00 04/15/25 14:59 DIAGNOSTICS / RADIOLOGY: [place] [address] [place] [address] IMAGING REPORT Signed PATIENT: ANGELA BALLARD MR#: [id number] : 1985 SEX: F AGE: 39 LOCATION: 2DH ORDER 115 STATUS: [facility] REPORT#: [id number] SERVICE 1140 REASON: bilateral lower extremity weakness ORDERING PHYSICIAN: MIREYA GRAYSON MD PROCEDURE: T SPINE WO - CT THORACIC SPINE W/O CONTRAST CT THORACIC SPINE W/O CONTRAST HISTORY: bilateral lower extremity weakness COMPARISON: None TECHNIQUE: Sequential axial images of thoracic spine without contrast and with sagittal and coronal reconstructions FINDINGS: There is normal alignment of thoracic vertebrae. No vertebral body height loss or fractures noted. Disc space height is preserved throughout. The central canal and neural foramen appear patent. Prevertebral soft tissues are unremarkable. IMPRESSION: No acute abnormality present. DICTATED BY: TAVO HAYNES MD DATE: 03/17/25 1446 ELECTRONICALLY SIGNED BY: TAVO HAYNES MD DATE: 03/17/25 1451 [place] [address] [id number] IMAGING REPORT Signed PATIENT: ANGELA BALLARD MR#: [id number] : 1985 SEX: F AGE: 39 LOCATION: 2DH ORDER 115 STATUS: [facility]M IN [facility] REPORT#: [id number] SERVICE 1140 REASON: bilateral lower extremity weakness ORDERING PHYSICIAN: MIREYA GRAYSON MD PROCEDURE: L SPIN WO - CT LUMBAR SPINE W/O CONTRAST CT LUMBAR SPINE W/O CONTRAST HISTORY: bilateral lower extremity weakness COMPARISON: None TECHNIQUE: CT lumbar spine was performed with/without IV contrast. Coronal and sagittal reformats were submitted for review. CONTRAST: mL of Isovue FINDINGS: Evaluation of the cord is limited with CT. No evidence of compression fracture or subluxation. Multilevel spondylosis. No disc degenerative disease.Paraspinal soft tissues are unremarkable. Aorta is normal in caliber. For the purposes of this dictation, the lowermost, fully formed disc will be counted as the L5-S1 disc level assuming 5 nonrib-bearing lumbar vertebral segments. There are marginal spur suggesting of osteoarthritic changes most pronounced as compared endplate of L3 followed by L2. INTRAVERTEBRAL LEVELS: L1-2: No disc herniation or bulge. No central canal stenosis or neural foraminal narrowing. L2-3: No disc herniation or bulge. No central canal stenosis or neural foraminal narrowing. L3-4: No disc herniation or bulge. No central canal stenosis or neural foraminal narrowing. L4-5: No disc herniation or bulge. No central canal stenosis or neural foraminal narrowing. L5-S1: No disc herniation or bulge. No central canal stenosis or neural foraminal narrowing. IMPRESSION: No acute fracture or malalignment. No evidence of spinal canal stenosis or herniated nuclear pulposus. There are marginal ventral spurs seen in the superior endplate of L3 and L2. DICTATED BY: TAVO HAYNES MD DATE: 03/17/25 1449 ELECTRONICALLY SIGNED BY: TAVO HAYNES MD DATE: 03/17/25 1458 [place] [address] IMAGING REPORT Signed PATIENT: ANGELA BALLARD MR#: [id number] : 1985 SEX: F AGE: 39 LOCATION: 2DH ORDER [id number] STATUS: ADM IN REPORT#: [id number] SERVICE 1149 REASON: bilateral lower extremity weakness ORDERING PHYSICIAN: MIREYA GRAYSON MD PROCEDURE: HEAD WO - CT HEAD/BRAIN W/O CONTRAST Exam: NONCONTRAST CT BRAIN REASON: bilateral lower extremity weakness. COMPARISON: None. TECHNIQUE: Images are obtained from vertex to the skull base. The exam was performed without IV contrast. FINDINGS: There is normal appearing brain parenchyma. There are no focal mass lesions. There is is no evidence of intracranial hemorrhage or acute stroke. Ventricles and sulci appear normal. Posterior fossa and brainstem structures are unremarkable. Paranasal sinuses and remaining extracranial soft tissues appear normal as well. IMPRESSION: 1. Normal noncontrast CT brain. CT was performed with one or more following dose reduction techniques: automated exposure control, adjustment of the mA and kv according to patient's size, or use of a iterative reconstruction technique. DICTATED BY: TAVO HAYNES MD DATE: 03/17/251444 ELECTRONICALLY SIGNED BY: TAVO HAYNES MD DATE: 03/17/251447 ASSESSMENT: Suspected coarctation of aorta status post repair as a child Progressive dyspnea on exertion. Differential secondary to coarctation of aorta versus CHF Lower extremity weakness Hypertension Insulin dependent diabetes mellitus chest pain PLAN: Progressive dyspnea on exertion. Differential secondary to coarctation of aorta versus CHF * Will monitor blood pressure in both arms and both lower extremity to assess for significant gradients * EKG ordered, which showed normal sinus rhythm without any abnormalities. * Troponin - 5, BNP- 41, * ECHO was ordered, results show LVEF of 50%, Moderate Left ventricular hypertrophy. * CTA was ordered which showed focal coarctation of aorta, 1.6 cm * Cardiology was consulted and CT Cardiac Angiography with contrast was ordered, results show absence of CAD, however, >75% reduction in diameter of coarctation of the aorta. Echo limited views of descending aorta, but was otherwise normal. * There was >20 SBP drop in right upper extremity compared to left upper extremity. * CHF was ruled out. * Patient waiting for recommendations from Dr. Cooper on friday for her coarctation of aorta. * Chest X-ray showed borderline cardiomegaly. Lower extremity weakness * b/l lower extremity weakness w/ decreased motor strength. * US B/L lower extremity Duplex scan was ordered, results were unremarkable. * Neurology was consulted, they recommended MRI of lumbar spine to evaluate for disc herniation and nerve compression. EMG neuroconduction study as outpatient to assess electrical activity from spine to legs and identify lower extremity nerve injuries. Primary care physician referral required for EMG test. * CT lumbar spine, CT Thoracic spine, CT head w/o contrast was ordered. CT lumbar spine, thoracic spine results were unremarkable. Ct head findings were unremarkable. * CT Cardiac Angiography with contrast was ordered, results show absence of CAD, however, >75% reduction in diameter of coarctation of the aorta. * Vitamin B12 was ordered, results show 451. * Ankle X-ray of right foot was ordered, which was unremarkable Suspected coarctation of aorta status post repair as a child * H/O coarctation of aorta s/p repair when she was 23 days old Insulin dependent diabetes mellitus * H/O type 1 DM. HbA1c of 6.5 * Endocrinology was consulted, will follow their recommendations. * As per endocrinology recommendations, Aldosterone serum, renin, plasma metanephrines were ordered will follow with results. Chest pain * EKG ordered, which showed normal sinus rhythm without any abnormalities. * Troponin - 5, BNP- 41, * ECHO was ordered, results show LVEF of 50%, Moderate Left ventricular hypertrophy. * CTA was ordered which showed focal coarctation of aorta, 1.6 cm * Cardiology was consulted and CT Cardiac Angiography with contrast was ordered, results show absence of CAD, however, >75% reduction in diameter of coarctation of the aorta. Echo limited views of descending aorta, but was otherwise normal. * Chest X-ray showed borderline cardiomegaly. ATTESTATION BY PHYSICIAN I have seen and examined the patient. I reviewed the documentation, medical decision making, and treatment plan as noted by the resident physician above. I agree with the findings and plan of care. LISHA MARTINEZ MD, SHAJI MD Mar 19, 2025 12:34
--- NOTE | 2025-03-19 14:17 | PN ---
This is a 39-year-old female with a history of type 1 diabetes mellitus, history of retinal detachment in 2018, and coarctation of the aorta status post repair at 23 days of age. She was admitted 03/16/2025 due to progressive dyspnea on exertion, lower extremity weakness and frequent falls. She underwent coronary CT angiography which was negative for coronary artery disease with coarctation of the aorta with greater than 75% reduction in diameter. CT of the chest showed focal coarctation of the aorta measuring 1.6 cm with aorta below measuring 2.1 cm. Additionally she was found to have mild fatty liver. She is pending evaluation by Dr. Cooper. She was also evaluated by Dr. Hyatt regarding bilateral lower extremity weakness and frequent falls. She underwent CT scan of the thoracic and lumbar spine which was negative for acute fracture or malalignment without evidence of spinal canal stenosis or herniated nuclear pulposus. There were marginal ventral spur seen in the superior endplate of L3 and L2. CT of the head is negative. She is pending MRI of the cervical, thoracic and lumbar spines. Echocardiogram 03/16/2025 demonstrates an ejection fraction of 50% with moderate LVH, normal-sized left atrium, atrial septum bowed towards the right, hockey stick appearance of anterior mitral valve leaflet without significant stenosis, mitral valve appears rheumatic. Her mean blood pressure is 117/71. She is currently in sinus rhythm with heart rates in the 80s to 90s. She reports numbness to bilateral lower extremities and states that she has had multiple falls over the last several months. The weakness to her extremities prevents her from climbing stairs. On exam, she is in no acute distress, regular rate and rhythm, lungs are clear to auscultation bilaterally, no lower extremity edema is noted. Assessment: 1. History of coarctation of the aorta status post repair in infancy with recurrence. 2. Bilateral lower extremity weakness. 3. Frequent falls. Plan: 1. She is pending evaluation by Dr. Cooper on Friday regarding recurrent coarctation of the aorta. 2. She is also pending MRI of the cervical, thoracic and lumbar spines to evaluate for bilateral lower extremity weakness. 3. We will follow the patient. Vitals/Labs Vital Signs Date Time Temp Pulse Resp B/P (MAP) Pulse Ox O2 Delivery O2 Flow Rate FiO2 03/19/25 11:00 98.2 87 20 117/71 100 Room Air 03/18/25 20:00 0 21 Laboratory Tests 03/19/25 04:21 HEIKE AYALA Mar 19, 2025 14:17
--- NOTE | 2025-03-19 22:28 | PN ---
Endocrinology progress note DOS:03/19/25 subjective: Home diabetic regimen: tresiba 15 units daily and humalog 7 units qac before meals Hba1c 6.5% I saw this patient recently in the hospital and am cortisol was checked due to intermittent low blood pressure. am cortisol was normal 17.2, so there was no evidence of adrenal insufficiency. adrenal hormonal work up result is pending. cardiology is following for hx of coarctation and possible stent restenosis. MRI of upper and lower spine are pending. echo show Conclusion LVEF is 50%. Moderate concentric left ventricular hypertrophy. CT head, thoracic and lumbar spine was normal. REVIEW OF SYSTEMS CONSTITUTIONAL: Denies fevers, chills, or night sweats. No unintentional weight loss reported. NEUROLOGICAL: Denies headache, amaurosis fugax, motor weakness, sensory deficit, vertigo/spinning sensation, gait abnormalities, or tremors. ENT: No hearing loss, otalgia, otorrhea, rhinitis, rhinorrhea, hoarseness, or sore throat. CARDIOVASCULAR: Positive for dyspnea on exertion, PULMONARY: Denies any shortness of breath, cough, phlegm/sputum, hemoptysis, pleuritic chest pain. SLEEP: Denies morning headaches, daytime somnolence or napping. Denies difficulty falling asleep, staying asleep, waking from sleep. Denies knowledge of snoring. GASTROINTESTINAL: Denies any type of dysphagia to either liquids or solids. Denies nausea, vomiting, pyrosis, early satiety, abdominal pain, diarrhea, constipation, or changes in stool consistency or caliber. Denies coffee-ground emesis, hematemesis, hematochezia, or melanotic stools. GENITOURINARY: Denies frequency, urgency, nocturia, hematuria or incontinence (Storage/Irritative symptoms.) Low urinary stream, straining to void, urinary intermittency or hesitancy, splitting of the voiding stream, terminal dribbling. ENDOCRINOLOGIC: Denies polyuria, polydipsia, polyphagia or heat/cold intolerances. HEMATOLOGIC: Denies thrombophilia/previous clots, or coagulopathy/bleeding disorders. ONCOLOGIC: Denies personal history of malignancy. DERMATOLOGIC: Denies rashes or pruritus. PSYCHIATRIC: Denies any suicidal or homicidal ideation. Denies hallucinations. 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 - Emergency room visit in September for sprained right ankle after fall at home Surgical History - Retinal detachment surgery in 2018 - Coarctation of the aorta repair at 23 days old - Surgery for muscle tightening in stomach at 10 days old Medications and Supplements - Insulin for type one diabetes - Always taking since diagnosis at age 8 - Avastin eye injections in both eyes due to prolonged diabetes - Received in the past Social History - Occupation: Works at a [employer] job Coded Allergies: levofloxacin (Unverified Allergy, Unknown, NAUSEA/VOMITING, 03/16/25) ASSESSMENT: Type 1 Diabetes mellitus Home diabetic regimen: tresiba 15 units daily and humalog 7 units qac before meals Hba1c 6.5% Hypertension I saw this patient recently in the hospital and am cortisol was checked due to intermittent low blood pressure. am cortisol was normal 17.2, so there was no evidence of adrenal insufficiency. she now reports episodes of elevated BP, chest pain and SOB-improving now. my suspicion is low for hyperaldosteronism or pheochromocytoma and labs has been ordered.. Suspected coarctation of aorta status post repair as a child, cardiology is following and cardiac work up is in progress. Progressive dyspnea on exertion. Differential secondary to coarctation of aorta versus CHF Lower extremity weakness-pending mri of upper and lower extremities. chest pain - improved PLAN: continue Lantus 14 units daily and adjust for fasting glucose. decrease Regular insulin to 3 units three times before meals due to hypoglycemia. Continue low dose sliding scale insulin. follow on plasma renin, serum aldosterone, plasma fractionated metanephrines and normetanephrines. Monitor glucose q x 6 hourly. Continue carb consistent diet. Keep glucose less than 180 mg/dl. Vitals/Labs Vital Signs Date Time Temp Pulse Resp B/P (MAP) Pulse Ox O2 Delivery O2 Flow Rate FiO2 03/19/25 19:51 99.0 92 20 137/74 98 Room Air 03/19/25 15:11 0 21 Laboratory Tests 03/19/25 04:21 Medications Current Medications Famotidine 20 mg BID IV Last administered on 03/19/25at 21:12; Start 03/16/25 at 21:00; Stop 04/15/25 at 20:59 Acetaminophen 500 mg Q6H PRN PO; Start 03/16/25 at 15:00; Stop 04/15/25 at 14:59 Insulin Human Regular INSULIN SLIDING SCAL... ACHS SQ Last administered on 03/19/25at 21:21; Start 03/16/25 at 16:30; Stop 04/15/25 at 16:29 Dextrose 50 ml AD PRN IV; Start 03/16/25 at 15:00; Stop 04/15/25 at 14:59 Glucagon 1 mg AD PRN IM; Start 03/16/25 at 15:00; Stop 04/15/25 at 14:59 Potassium Chloride 100 ml @ 100 mls/hr AD PRN IV; Start 03/16/25 at 15:00; Stop 04/15/25 at 14:59 Potassium Chloride 20 meq AD PRN PO; Start 03/16/25 at 15:00; Stop 04/15/25 at 14:59 Potassium Chloride 20 meq AD PRN PO Last administered on 03/17/25at 08:09; Start 03/16/25 at 15:00; Stop 04/15/25 at 14:59 Magnesium Sulfate 50 ml @ 0 mls/hr PROTOCOL PRN IV; Start 03/16/25 at 15:00; Stop 04/15/25 at 14:59 Ondansetron HCl 4 mg Q6H PRN IVP Last administered on 03/18/25at 20:08; Start 03/16/25 at 17:00; Stop 04/15/25 at 16:59 Iohexol 75 ml STK-MED ONCE IV; Start 03/16/25 at 16:55; Stop 03/16/25 at 16:55; Status DC Insulin Glargine 20 units DAILY SQ; Start 03/17/25 at 09:00; Stop 03/17/25 at 05:36; Status DC Insulin Glargine 14 units DAILY SQ Last administered on 03/19/25at 08:45; Start 03/17/25 at 09:00; Stop 04/16/25 at 08:59 Metoprolol Tartrate 50 mg ONCE ONCE PO Last administered on 03/17/25at 08:54; Start 03/17/25 at 08:30; Stop 03/17/25 at 08:31; Status DC Iohexol 35,000 mg STK-MED ONCE IV; Start 03/17/25 at 13:28; Stop 03/17/25 at 13:28; Status DC Metoprolol Tartrate 5 mg STK-MED ONCE IV; Start 03/17/25 at 13:44; Stop 03/17/25 at 13:44; Status DC Metoprolol Tartrate 5 mg STK-MED ONCE IV; Start 03/17/25 at 13:48; Stop 03/17/25 at 13:48; Status DC Insulin Human Regular 3 unit TIDAC SQ Last administered on 03/18/25at 11:58; Start 03/18/25 at 07:30; Stop 03/18/25 at 12:14; Status DC Ceftriaxone Sodium 1 gm Q24H IVPB Last administered on 03/19/25at 12:18; Start 03/18/25 at 12:30; Stop 03/28/25 at 12:29 Insulin Human Regular 4 unit TIDAC SQ Last administered on 03/19/25at 12:17; Start 03/18/25 at 17:00; Stop 04/17/25 at 16:59 ALLO CORNEJO MD Mar 19, 2025 22:28
[2025-03-20] VITALS (8 sets, daily range): BP systolic 123–158; BP diastolic 70–85; PULSE 86–97; RESP 16–20; TEMP 98–98.3; O2SAT 95–99
[2025-03-20 04:19] LABS: IMMATURE GRANULOCYTE ABSOLUTE 0.01 K/uL (0-1); NUCLEATED RED BLOOD CELLS 0.0 % (0.0-0.19); PLATELET COUNT (AUTO) 320 K/uL (130-400); RED BLOOD CELL COUNT(AUTO) 3.74 MIL/uL (4.00-5.50); RED CELL DISTRIBUTION WIDTH 12.4 % (11.0-15.5); WHITE BLOOD COUNT (AUTO) 8.1 K/uL (4.8-10.8)
[2025-03-20 04:29] LABS: CREATININE 0.6 mg/dL (0.5-1.0); GLOMERULAR FILTR. RATE CALC 116.0 mL/min (>90); GLUCOSE,RANDOM 132.0 mg/dL (70-105); SODIUM SERUM 139.0 mmol/L (136-145); UREA NITROGEN, BLOOD 23.0 mg/dL (7-18)
--- NOTE | 2025-03-20 11:49 | PN ---
This is a 39-year-old female with a history of type 1 diabetes mellitus, history of retinal detachment in 2018, and coarctation of the aorta status post repair at 23 days of age. She was admitted 03/16/2025 due to progressive dyspnea on exertion, lower extremity weakness and frequent falls. She underwent coronary CT angiography which was negative for coronary artery disease with coarctation of the aorta with greater than 75% reduction in diameter. CT of the chest showed focal coarctation of the aorta measuring 1.6 cm with aorta below measuring 2.1 cm. Additionally she was found to have mild fatty liver. She is pending evaluation by Dr. Cooper. She was also evaluated by Dr. Hyatt regarding bilateral lower extremity weakness and frequent falls. She underwent CT scan of the thoracic and lumbar spine which was negative for acute fracture or malalignment without evidence of spinal canal stenosis or herniated nuclear pulposus. There were marginal ventral spur seen in the superior endplate of L3 and L2. CT of the head is negative. She is pending MRI of the cervical, thoracic and lumbar spines. Echocardiogram 03/16/2025 demonstrates an ejection fraction of 50% with moderate LVH, normal-sized left atrium, atrial septum bowed towards the right, hockey stick appearance of anterior mitral valve leaflet without significant stenosis, mitral valve appears rheumatic. Her mean blood pressure is 117/71. She is currently in sinus rhythm with heart rates in the 70s-80s. White blood count 8.1, hemoglobin 11.2, hematocrit 32.4, platelets 320, creatinine 0.6, potassium 4.0. She reports numbness to bilateral lower extremities and states that she has had multiple falls over the last several months. The weakness to her extremities prevents her from climbing stairs. On exam, she is in no acute distress, regular rate and rhythm, lungs are clear to auscultation bilaterally, no lower extremity edema is noted. Assessment: 1. History of coarctation of the aorta status post repair in infancy with recurrence. 2. Bilateral lower extremity weakness. 3. Frequent falls. Plan: 1. She is pending evaluation by Dr. Cooper on Friday regarding recurrent coarctation of the aorta. 2. She is also pending MRI of the cervical, thoracic and lumbar spines for evaluation of bilateral lower extremity weakness. 3. We will follow the patient. Vitals/Labs Vital Signs Date Time Temp Pulse Resp B/P (MAP) Pulse Ox O2 Delivery O2 Flow Rate FiO2 03/20/25 11:00 98.2 92 16 123/74 100 Room Air 03/19/25 20:00 0 21 Laboratory Tests 03/20/25 03:48 HEIKE AYALA PAC Mar 20, 2025 11:49
--- NOTE | 2025-03-20 15:22 | PN ---
[facility] PROGRESS NOTE Date of Service: Mar 20, 2025 Time of Service: 9:20 HISTORY OF PRESENT ILLNESS: 39-year-old female with past medical history insulin dependent type 1 diabetes mellitus, history of coarctation of aorta status post surgery as a child who presented the hospital secondary to shortness of breath with exertion, chest pain, lower extremity weakness. Patient states since January last year she has noted that she has been having progressive shortness of breath. Her shortness of breath is present with exertional mainly ambulation. She can take 20s steps before getting short of. She also gets mildly short of breath with daily activities including cooking. She complains of midsternal chest pain which radiates towards her back. She describes the pain as heartburn in nature. She currently does not have any active chest pain when she came to the hospital. She denied any upper extremity numbness, weakness. Additionally she has also noted that she is having progressive weakness of her lower extremity. She has a difficult time with ambulation. She does ambulate at home. She had sprained her right ankle around one year ago and has noted pain in the ankle. She had x- ray done in the ER and she was treated for sprain conservatively. She denies any previous history of hypertension. She went to see her primary vocational trainer Dr. Leavitt today where she was recommended to come to the hospital for further evaluation. She was sent as a direct admission. Furthermore she has a history of insulin dependent diabetes and currently takes Tresiba and Humalog at home. Patient's blood pressure on presentation was 167/72, heart rate was in the 90s, temperature was 99.0 SUBJECTIVE: 03/17/25: Patient was seen in room 220, along with her . Patient was alert, awake and oriented. Patient reports shortness of breath with exertion, weakness in her B/L lower extremities. Patient reports ankle pain in her right foot, attributes it to her ankle sprain which she had a few days ago. Patient reports recurrent buckling of her knee joints. Patient denies cramping in her b/l lower extremities. Patient denies any paresthesia in extremities. Patient denies any motor weakness in b/l upper extremities. Patient denied fever, chills, palpitations. Patient denies any current chest pain. 03/18/25: Patient was seen in room 220, along with her . Patient was alert, awake and oriented. Patient doesn't have any active complaints. Patient was informed by Dr. Leavitt that she has coarctation of aorta at the same previous site she got operated for during her childhood. Patient asked when will her scheduled MRI be done today. Patient denies cramping in her b/l lower extremities. Patient denies any paresthesia in extremities. Patient denies any motor weakness in b/l upper extremities. Patient denied fever, chills, palpitations. Patient denies any current chest pain. there was >20 SBP drop in right upper extremity compared to left upper extremity. 03/19/25: Patient was seen in room 220. Patient was alert, awake and oriented. Patient doesn't have any active complaints. Patient had concerns if its necessary to get the MRI done and conveyed that she didn't want to get her MRI done. Patient is waiting for her recommendations from Dr. Cooper on Friday for her coarctation of aorta. Patient denies cramping in her b/l lower extremities. Patient denies any paresthesia in extremities. Patient denies any motor weakness in b/l upper extremities. Patient denied fever, chills, palpitations. Patient denies any current chest pain. 03/20/25: Patient was seen and evaluated at bedside today. She is pending MRI lumbar spine as well as evaluation by Dr. Cooper, vocational trainer, tomorrow. Due to recent episodes of hypoglycemia, she was seen by endocrinology consult and her insulin was adjusted. At my time of evaluation, patient reports no weakness or cramps in the lower extremities and patient states that it is due to her not walking while being hospitalized. She is otherwise vitally stable with blood pressure 127/70. REVIEW OF SYSTEMS CONSTITUTIONAL: Denies fevers, chills, or night sweats. No unintentional weight loss reported. NEUROLOGICAL: Denies headache, amaurosis fugax, motor weakness, sensory deficit, vertigo/spinning sensation, gait abnormalities, or tremors. ENT: No hearing loss, otalgia, otorrhea, rhinitis, rhinorrhea, hoarseness, or sore throat. CARDIOVASCULAR: Positive for dyspnea on exertion, PULMONARY: Denies any shortness of breath, cough, phlegm/sputum, hemoptysis, pleuritic chest pain. SLEEP: Denies morning headaches, daytime somnolence or napping. Denies difficulty falling asleep, staying asleep, waking from sleep. Denies knowledge of snoring. GASTROINTESTINAL: Denies any type of dysphagia to either liquids or solids. Denies nausea, vomiting, pyrosis, early satiety, abdominal pain, diarrhea, constipation, or changes in stool consistency or caliber. Denies coffee-ground emesis, hematemesis, hematochezia, or melanotic stools. GENITOURINARY: Denies frequency, urgency, nocturia, hematuria or incontinence (Storage/Irritative symptoms.) Low urinary stream, straining to void, urinary intermittency or hesitancy, splitting of the voiding stream, terminal dribbling. ENDOCRINOLOGIC: Denies polyuria, polydipsia, polyphagia or heat/cold intolerances. HEMATOLOGIC: Denies thrombophilia/previous clots, or coagulopathy/bleeding disorders. ONCOLOGIC: Denies personal history of malignancy. DERMATOLOGIC: Denies rashes or pruritus. PSYCHIATRIC: Denies any suicidal or homicidal ideation. Denies hallucinations. PHYSICAL EXAM GENERAL APPEARANCE: The patient is awake, alert, and oriented, in no acute cardiopulmonary distress. NEUROLOGICAL: Cranial nerves II-XII grossly intact. Motor is 5/5 in bilateral upper and lower extremities proximal to distal. No sensory deficits. HEENT: Face is symmetric. Pupils are equal and reactive. Extraocular movements are intact. NECK: Supple. No JVD. No thyromegaly. No submental, submandibular, pre-/post auricular, occipital or supraclavicular lymphadenopathy. CHEST: Normal chest expansion. No Telemetry. LUNGS: Absence of any rales, rhonchi or any wheezing. CARDIOVASCULAR: Regular. S1 and S2 normal. No appreciable rubs, murmurs or gallops. ABDOMEN: Soft, nontender, and nondistended. There is no rebound, voluntary guarding, or rigidity. : Deferred. No Ocpe. EXTREMITIES: Patient's lower extremity he is thin. She does move her lower extremities without issue. Unable to dorsiflex her right ankle secondary to pain. motor strength in left lower extremity. SKIN: No skin breakdown. Vital Signs (last 8hr) Date Time Temp Pulse Resp B/P (MAP) Pulse Ox O2 Delivery O2 Flow Rate FiO2 03/20/25 14:43 95 Room Air* 0 21 03/20/25 11:00 98.2 92 16 123/74 100 Room Air LABS: Laboratory: Test 03/20/25 10:41 03/20/25 03:48 Range/Units Whole Blood Glucose 223 H 70-110 MG/DL Bedside Glucose Comment Notified Nurse White Blood Count 8.1 4.8-10.8 K/uL Red Blood Count 3.74 L 4.00-5.50 MIL/uL Hemoglobin 11.2 L 12.0-16.0 g/dL Hematocrit 32.4 L 36-48 % Mean Corpuscular Volume 86.6 79-99 fL Mean Corpuscular Hemoglobin 29.9 27.0-33.0 pg Mean Corpuscular Hemoglobin Concent 34.6 32.0-36.0 g/dL Red Cell Distribution Width 12.4 11.0-15.5 % Platelet Count 320 130-400 K/uL Mean Platelet Volume 11.4 H 7.5-10.5 fL Immature Granulocyte % (Auto) 0.1 0-1 % Neutrophils (%) (Auto) 49.9 40.0-77.0 % Lymphocytes (%) (Auto) 34.2 21.0-51.0 % Monocytes (%) (Auto) 10.4 3.0-13.0 % Eosinophils (%) (Auto) 4.8 0.0-8.0 % Basophils (%) (Auto) 0.6 0.0-5.0 % Neutrophils # (Auto) 4.0 1.8-7.7 K/uL Lymphocytes # (Auto) 2.8 1.0-4.8 K/uL Monocytes # (Auto) 0.8 0.1-1.0 K/uL Eosinophils # (Auto) 0.39 0.00-0.70 K/uL Basophils # (Auto) 0.05 0.00-0.20 K/uL Absolute Immature Granulocyte (auto 0.01 0-1 K/uL Nucleated Red Blood Cells 0.0 0.0-0.19 % Sodium Level 139 136-145 mmol/L Potassium Level 4.0 3.5-5.1 mmol/L Chloride Level 104 101-111 mmol/L Carbon Dioxide Level 24 21-32 mmol/L Blood Urea Nitrogen 23 H 7-18 mg/dL Creatinine 0.6 0.5-1.0 mg/dL Glomerular Filtration Rate Calc 116 >90 mL/min Random Glucose 132 #H 70-105 mg/dL Total Calcium 8.3 L 8.5-10.1 mg/dL Current Medications Medications (Trade) Dose Ordered Sig/Jamila Route PRN Reason Start Time Stop Time Status Last Admin Dose Admin Acetaminophen (TYLenol 500MG TAB) 500 mg Q6H PRN PO MILD PAIN (1-3) 03/16/25 15:00 04/15/25 14:59 03/20/25 08:30 500 MG Ceftriaxone Sodium (ROCEphine 1G INJ) 1 gm Q24H IVPB 03/18/25 12:30 03/28/25 12:29 03/20/25 11:50 1 GM Dextrose (D50w) 50 ml AD PRN IV HYPOGLYCEMIA PROTOCOL 03/16/25 15:00 04/15/25 14:59 Famotidine (Pepcid 20mg Vial) 20 mg BID IV 03/16/25 21:00 04/15/25 20:59 03/20/25 08:29 20 MG Glucagon (Glucagon 1mg Kit) 1 mg AD PRN IM HYPOGLYCEMIA PROTOCOL 03/16/25 15:00 04/15/25 14:59 Insulin Glargine (LANtus 100 UNITS/ML 10 ML VIAL) 14 units DAILY SQ 03/17/25 09:00 03/20/25 07:17 DC 03/19/25 08:45 14 UNITS Insulin Glargine (LANtus 100 UNITS/ML 10 ML VIAL) 16 units DAILY SQ 03/20/25 09:00 04/19/25 08:59 03/20/25 08:34 16 UNITS Insulin Glargine (LANtus 100 UNITS/ML 10 ML VIAL) 20 units DAILY SQ 03/17/25 09:00 03/17/25 05:36 DC Insulin Human Regular (humuLIN R 100 UNIT/ML 3ML) 3 unit TIDAC SQ 03/18/25 07:30 03/18/25 12:14 DC 03/18/25 11:58 3 UNIT Insulin Human Regular (humuLIN R 100 UNIT/ML 3ML) 3 unit TIDAC SQ 03/20/25 07:30 04/19/25 07:29 03/20/25 11:52 3 UNIT Insulin Human Regular (humuLIN R 100 UNIT/ML 3ML) 4 unit TIDAC SQ 03/18/25 17:00 03/19/25 22:26 DC 03/19/25 12:17 4 UNIT Insulin Human Regular (humuLIN R 100 UNIT/ML 3ML) INSULIN SLIDING SCAL... ACHS SQ 03/16/25 16:30 04/15/25 16:29 03/20/25 11:51 3 UNIT Magnesium Sulfate 50 ml @ 0 mls/hr PROTOCOL PRN IV hypomagnesemia 03/16/25 15:00 04/15/25 14:59 Ondansetron HCl (zoFRAN 4MG INJ) 4 mg Q6H PRN IVP NAUSEA/VOMITING 03/16/25 17:00 04/15/25 16:59 03/18/25 20:08 4 MG Potassium Chloride 100 ml @ 100 mls/hr AD PRN IV POTASSIUM PROTOCOL 03/16/25 15:00 04/15/25 14:59 Potassium Chloride (K-Dur/Klor-Con 20meq) 20 meq AD PRN PO POTASSIUM PROTOCOL 03/16/25 15:00 04/15/25 14:59 03/17/25 08:09 20 MEQ Potassium Chloride (KCl 10% Elixir 20meq/15ml) 20 meq AD PRN PO POTASSIUM PROTOCOL 03/16/25 15:00 04/15/25 14:59 DIAGNOSTICS / RADIOLOGY: PATIENT: ANGELA BALLARD MR#: [id number] : 1985 SEX: F AGE: 39 LOCATION: 2DH ORDER 1152 STATUS: ADM IN HOSPITAL REPORT#: [id number] SERVICE 1149 REASON: bilateral lower extremity weakness ORDERING PHYSICIAN: MIREYA GRYASON MD PROCEDURE: T SPINE WO - CT THORACIC SPINE W/O CONTRAST CT THORACIC SPINE W/O CONTRAST HISTORY: bilateral lower extremity weakness COMPARISON: None TECHNIQUE: Sequential axial images of thoracic spine without contrast and with sagittal and coronal reconstructions FINDINGS: There is normal alignment of thoracic vertebrae. No vertebral body height loss or fractures noted. Disc space height is preserved throughout. The central canal and neural foramen appear patent. Prevertebral soft tissues are unremarkable. IMPRESSION: No acute abnormality present. DICTATED BY: TAVO HAYNES MD DATE: 03/17/25 1446 ELECTRONICALLY SIGNED BY: TAVO HAYNES MD DATE: 03/17/25 1451 [facility] [address] [place] [address] IMAGING REPORT Signed PATIENT: ANGELA BALLARD MR#: [id number] : 1985 SEX: F AGE: 39 LOCATION: 2DH ORDER 115 STATUS: ADM IN [facility] REPORT#: [id number] SERVICE 1142 REASON: bilateral lower extremity weakness ORDERING PHYSICIAN: MIREYA GRAYSON MD PROCEDURE: L SPIN WO - CT LUMBAR SPINE W/O CONTRAST CT LUMBAR SPINE W/O CONTRAST HISTORY: bilateral lower extremity weakness COMPARISON: None TECHNIQUE: CT lumbar spine was performed with/without IV contrast. Coronal and sagittal reformats were submitted for review. CONTRAST: mL of Isovue FINDINGS: Evaluation of the cord is limited with CT. No evidence of compression fracture or subluxation. Multilevel spondylosis. No disc degenerative disease.Paraspinal soft tissues are unremarkable. Aorta is normal in caliber. For the purposes of this dictation, the lowermost, fully formed disc will be counted as the L5-S1 disc level assuming 5 nonrib-bearing lumbar vertebral segments. There are marginal spur suggesting of osteoarthritic changes most pronounced as compared endplate of L3 followed by L2. INTRAVERTEBRAL LEVELS: L1-2: No disc herniation or bulge. No central canal stenosis or neural foraminal narrowing. L2-3: No disc herniation or bulge. No central canal stenosis or neural foraminal narrowing. L3-4: No disc herniation or bulge. No central canal stenosis or neural foraminal narrowing. L4-5: No disc herniation or bulge. No central canal stenosis or neural foraminal narrowing. L5-S1: No disc herniation or bulge. No central canal stenosis or neural foraminal narrowing. IMPRESSION: No acute fracture or malalignment. No evidence of spinal canal stenosis or herniated nuclear pulposus. There are marginal ventral spurs seen in the superior endplate of L3 and L2. DICTATED BY: TAVO HAYENS MD DATE: 03/17/25 1448 ELECTRONICALLY SIGNED BY: TAVO HAYNES MD DATE: 03/17/25 1452 [facility] [address] [place], [place] [id number] IMAGING REPORT Signed PATIENT: ANGELA BALLARD MR#: [id number] : 1985 SEX: F AGE: 39 LOCATION: 2DH ORDER 1152 STATUS: ADM IN REPORT#: [id number] SERVICE 1149 REASON: bilateral lower extremity weakness ORDERING PHYSICIAN: MIREYA GRAYSON MD PROCEDURE: HEAD WO - CT HEAD/BRAIN W/O CONTRAST Exam: NONCONTRAST CT BRAIN REASON: bilateral lower extremity weakness. COMPARISON: None. TECHNIQUE: Images are obtained from vertex to the skull base. The exam was performed without IV contrast. FINDINGS: There is normal appearing brain parenchyma. There are no focal mass lesions. There is is no evidence of intracranial hemorrhage or acute stroke. Ventricles and sulci appear normal. Posterior fossa and brainstem structures are unremarkable. Paranasal sinuses and remaining extracranial soft tissues appear normal as well. IMPRESSION: 1. Normal noncontrast CT brain. CT was performed with one or more following dose reduction techniques: automated exposure control, adjustment of the mA and kv according to patient's size, or use of a iterative reconstruction technique. DICTATED BY: TAVO HAYNES MD DATE: 03/17/25 144 ELECTRONICALLY SIGNED BY: TAVO HAYNES MD DATE: 03/17/25 144 ASSESSMENT: Suspected coarctation of aorta status post repair as a child Progressive dyspnea on exertion. Differential secondary to coarctation of aorta versus CHF Lower extremity weakness Hypertension Insulin dependent diabetes mellitus chest pain PLAN: Progressive dyspnea on exertion. Differential secondary to coarctation of aorta versus CHF * Will monitor blood pressure in both arms and both lower extremity to assess for significant gradients * EKG ordered, which showed normal sinus rhythm without any abnormalities. * Troponin - 5, BNP- 41, * ECHO was ordered, results show LVEF of 50%, Moderate Left ventricular hypertrophy. * CTA was ordered which showed focal coarctation of aorta, 1.6 cm * Cardiology was consulted and CT Cardiac Angiography with contrast was ordered, results show absence of CAD, however, >75% reduction in diameter of coarctation of the aorta. Echo limited views of descending aorta, but was otherwise normal. * There was >20 SBP drop in right upper extremity compared to left upper extremity. * CHF was ruled out. * Patient waiting for recommendations from Dr. Cooper on friday for her coarctation of aorta. * Chest X-ray showed borderline cardiomegaly. * Follow up with the ultrasound KACEY. Lower extremity weakness * b/l lower extremity weakness w/ decreased motor strength. * US B/L lower extremity Duplex scan was ordered, results were unremarkable. * Neurology was consulted, they recommended MRI of lumbar spine to evaluate for disc herniation and nerve compression. EMG neuroconduction study as outpatient to assess electrical activity from spine to legs and identify lower extremity nerve injuries. Primary care physician referral required for EMG test. * CT lumbar spine, CT Thoracic spine, CT head w/o contrast was ordered. CT lumbar spine, thoracic spine results were unremarkable. Ct head findings were unremarkable. * CT Cardiac Angiography with contrast was ordered, results show absence of CAD, however, >75% reduction in diameter of coarctation of the aorta. * Vitamin B12 was ordered, results show 451. * Ankle X-ray of right foot was ordered, which was unremarkable Suspected coarctation of aorta status post repair as a child * H/O coarctation of aorta s/p repair when she was 23 days old Insulin dependent diabetes mellitus * H/O type 1 DM. HbA1c of 6.5 * A consult was placed for endocrinology. * continue Lantus 14 units daily and adjust for fasting glucose. * decrease Regular insulin to 3 units three times before meals due to hypoglycemia. * Continue low dose sliding scale insulin. * follow on plasma renin, serum aldosterone, plasma fractionated metanephrines and normetanephrines. * Monitor glucose q x 6 hourly. * Continue carb consistent diet. * Keep glucose less than 180 mg/dl. * As per endocrinology recommendations, Aldosterone serum, renin, plasma metanephrines were ordered will follow with results. Chest pain * EKG ordered, which showed normal sinus rhythm without any abnormalities. * Troponin - 5, BNP- 41, * ECHO was ordered, results show LVEF of 50%, Moderate Left ventricular hypertrophy. * CTA was ordered which showed focal coarctation of aorta, 1.6 cm * Cardiology was consulted and CT Cardiac Angiography with contrast was ordered, results show absence of CAD, however, >75% reduction in diameter of coarctation of the aorta. Echo limited views of descending aorta, but was otherwise normal. * Chest X-ray showed borderline cardiomegaly. ATTESTATION BY PHYSICIAN I have seen and examined the patient. I reviewed the documentation, medical decision making, and treatment plan as noted by the resident physician above. I agree with the findings and plan of care. LISHA MARTINEZ MD, MUHAMMAD H MD Mar 20, 2025 15:22
--- NOTE | 2025-03-20 23:01 | PN ---
Endocrinology progress note DOS:03/20/25 subjective: Home diabetic regimen: tresiba 15 units daily and humalog 7 units qac before meals Hba1c 6.5% I saw this patient recently in the hospital and am cortisol was checked due to intermittent low blood pressure. am cortisol was normal 17.2, so there was no evidence of adrenal insufficiency. adrenal hormonal work up result is pending. cardiology is following for hx of coarctation and possible stent restenosis. MRI of upper and lower spine are pending. echo show Conclusion LVEF is 50%. Moderate concentric left ventricular hypertrophy. CT head, thoracic and lumbar spine was normal. REVIEW OF SYSTEMS CONSTITUTIONAL: Denies fevers, chills, or night sweats. No unintentional weight loss reported. NEUROLOGICAL: Denies headache, amaurosis fugax, motor weakness, sensory deficit, vertigo/spinning sensation, gait abnormalities, or tremors. ENT: No hearing loss, otalgia, otorrhea, rhinitis, rhinorrhea, hoarseness, or sore throat. CARDIOVASCULAR: Positive for dyspnea on exertion, PULMONARY: Denies any shortness of breath, cough, phlegm/sputum, hemoptysis, pleuritic chest pain. SLEEP: Denies morning headaches, daytime somnolence or napping. Denies difficulty falling asleep, staying asleep, waking from sleep. Denies knowledge of snoring. GASTROINTESTINAL: Denies any type of dysphagia to either liquids or solids. Denies nausea, vomiting, pyrosis, early satiety, abdominal pain, diarrhea, constipation, or changes in stool consistency or caliber. Denies coffee-ground emesis, hematemesis, hematochezia, or melanotic stools. GENITOURINARY: Denies frequency, urgency, nocturia, hematuria or incontinence (Storage/Irritative symptoms.) Low urinary stream, straining to void, urinary intermittency or hesitancy, splitting of the voiding stream, terminal dribbling. ENDOCRINOLOGIC: Denies polyuria, polydipsia, polyphagia or heat/cold intolerances. HEMATOLOGIC: Denies thrombophilia/previous clots, or coagulopathy/bleeding disorders. ONCOLOGIC: Denies personal history of malignancy. DERMATOLOGIC: Denies rashes or pruritus. PSYCHIATRIC: Denies any suicidal or homicidal ideation. Denies hallucinations. 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 - Emergency room visit in September for sprained right ankle after fall at home Surgical History - Retinal detachment surgery in 2018 - Coarctation of the aorta repair at 23 days old - Surgery for muscle tightening in stomach at 10 days old Medications and Supplements - Insulin for type one diabetes - Always taking since diagnosis at age 8 - Avastin eye injections in both eyes due to prolonged diabetes - Received in the past Social History - Occupation: Works at a [employer] job Coded Allergies: levofloxacin (Unverified Allergy, Unknown, NAUSEA/VOMITING, 03/16/25) ASSESSMENT: Type 1 Diabetes mellitus Home diabetic regimen: tresiba 15 units daily and humalog 7 units qac before meals Hba1c 6.5% Hypertension I saw this patient recently in the hospital and am cortisol was checked due to intermittent low blood pressure. am cortisol was normal 17.2, so there was no evidence of adrenal insufficiency. she now reports episodes of elevated BP, chest pain and SOB-improving now. my suspicion is low for hyperaldosteronism or pheochromocytoma and labs has been ordered.. Suspected coarctation of aorta status post repair as a child, cardiology is following and cardiac work up is in progress. Progressive dyspnea on exertion. Differential secondary to coarctation of aorta versus CHF Lower extremity weakness-pending mri of upper and lower extremities. chest pain - improved PLAN: continue Lantus 14 units daily and adjust for fasting glucose. continue Regular insulin 3 units three times before meals Continue low dose sliding scale insulin. follow on plasma renin, serum aldosterone, plasma fractionated metanephrines and normetanephrines. Monitor glucose q x 6 hourly. Continue carb consistent diet. Keep glucose less than 180 mg/dl. Vitals/Labs Vital Signs Date Time Temp Pulse Resp B/P (MAP) Pulse Ox O2 Delivery O2 Flow Rate FiO2 03/20/25 19:25 98.2 91 20 158/78 99 Room Air 03/20/25 19:15 0 21 Laboratory Tests 03/20/25 03:48 Medications Current Medications Famotidine 20 mg BID IV Last administered on 03/20/25at 20:21; Start 03/16/25 at 21:00; Stop 04/15/25 at 20:59 Acetaminophen 500 mg Q6H PRN PO Last administered on 03/20/25at 18:14; Start 03/16/25 at 15:00; Stop 04/15/25 at 14:59 Insulin Human Regular INSULIN SLIDING SCAL... ACHS SQ Last administered on 03/20/25at 11:51; Start 03/16/25 at 16:30; Stop 04/15/25 at 16:29 Dextrose 50 ml AD PRN IV; Start 03/16/25 at 15:00; Stop 04/15/25 at 14:59 Glucagon 1 mg AD PRN IM; Start 03/16/25 at 15:00; Stop 04/15/25 at 14:59 Potassium Chloride 100 ml @ 100 mls/hr AD PRN IV; Start 03/16/25 at 15:00; Stop 04/15/25 at 14:59 Potassium Chloride 20 meq AD PRN PO; Start 03/16/25 at 15:00; Stop 04/15/25 at 14:59 Potassium Chloride 20 meq AD PRN PO Last administered on 03/17/25at 08:09; Start 03/16/25 at 15:00; Stop 04/15/25 at 14:59 Magnesium Sulfate 50 ml @ 0 mls/hr PROTOCOL PRN IV; Start 03/16/25 at 15:00; Stop 04/15/25 at 14:59 Ondansetron HCl 4 mg Q6H PRN IVP Last administered on 03/18/25at 20:08; Start 03/16/25 at 17:00; Stop 04/15/25 at 16:59 Iohexol 75 ml STK-MED ONCE IV; Start 03/16/25 at 16:55; Stop 03/16/25 at 16:55; Status DC Insulin Glargine 20 units DAILY SQ; Start 03/17/25 at 09:00; Stop 03/17/25 at 05:36; Status DC Insulin Glargine 14 units DAILY SQ Last administered on 03/19/25at 08:45; Start 03/17/25 at 09:00; Stop 03/20/25 at 07:17; Status DC Metoprolol Tartrate 50 mg ONCE ONCE PO Last administered on 03/17/25at 08:54; Start 03/17/25 at 08:30; Stop 03/17/25 at 08:31; Status DC Iohexol 35,000 mg STK-MED ONCE IV; Start 03/17/25 at 13:28; Stop 03/17/25 at 13:28; Status DC Metoprolol Tartrate 5 mg STK-MED ONCE IV; Start 03/17/25 at 13:44; Stop 03/17/25 at 13:44; Status DC Metoprolol Tartrate 5 mg STK-MED ONCE IV; Start 03/17/25 at 13:48; Stop 03/17/25 at 13:48; Status DC Insulin Human Regular 3 unit TIDAC SQ Last administered on 03/18/25at 11:58; Start 03/18/25 at 07:30; Stop 03/18/25 at 12:14; Status DC Ceftriaxone Sodium 1 gm Q24H IVPB Last administered on 03/20/25at 11:50; Start 03/18/25 at 12:30; Stop 03/28/25 at 12:29 Insulin Human Regular 4 unit TIDAC SQ Last administered on 03/19/25at 12:17; Start 03/18/25 at 17:00; Stop 03/19/25 at 22:26; Status DC Insulin Human Regular 3 unit TIDAC SQ Last administered on 03/20/25at 16:55; Start 03/20/25 at 07:30; Stop 04/19/25 at 07:29 Insulin Glargine 16 units DAILY SQ Last administered on 03/20/25at 08:34; Start 03/20/25 at 09:00; Stop 04/19/25 at 08:59 LALO CORNEJO MD Mar 20, 2025 23:01
[2025-03-21] VITALS (7 sets, daily range): BP systolic 123–167; BP diastolic 68–90; PULSE 86–98; RESP 18–20; TEMP 97.7–98.7; O2SAT 100
[2025-03-21 03:48] LABS: NUCLEATED RED BLOOD CELLS 0.0 % (0.0-0.19); PLATELET COUNT (AUTO) 311.0 K/uL (130-400); RED BLOOD CELL COUNT(AUTO) 3.55 MIL/uL (4.00-5.50); RED CELL DISTRIBUTION WIDTH 12.3 % (11.0-15.5); WHITE BLOOD COUNT (AUTO) 9.1 K/uL (4.8-10.8)
[2025-03-21 04:01] LABS: CREATININE 0.4 mg/dL (0.5-1.0); GLOMERULAR FILTR. RATE CALC 127.0 mL/min (>90); GLUCOSE,RANDOM 131.0 mg/dL (70-105); SODIUM SERUM 140.0 mmol/L (136-145); UREA NITROGEN, BLOOD 22.0 mg/dL (7-18)
--- NOTE | 2025-03-21 12:37 | CONS ---
REASON FOR CONSULTATION: I was asked to evaluate this patient by Dr. Jillian Leavitt because of history of coarctation of the aorta. HISTORY OF PRESENT ILLNESS: This is a pleasant 39-year-old female with multiple medical problems including history of diabetes mellitus, type 1 with history of coarctation of the aorta. She underwent surgical repair, bilateral thoracotomy in the first month of life. She also had a Heller myotomy presumably because of gastric outlet obstruction. The patient has presented with progressively worsening history of generalized weakness, instability, and recurrent falls. She also experienced symptoms of chest discomfort and shortness of breath. The patient has been having marked deterioration in her overall status. She was noted to have chest discomfort radiating to the back. She describes it as a heartburn type discomfort. She has become fairly frail and debilitated. She states that she has to park in the disabled space and walk with assistance on a daily basis to get to her work environment. The patient has been having recurrent falls, which have been occurring with increasing frequency. She has had generalized weakness more than pain in the legs. She also describes generalized weakness in the arms. She has been evaluated by Neurology and is currently undergoing an evaluation. She had a CT scan of the spine, which was reportedly without any acute problems, but is pending an MRI of the cervical and thoracic spine. On assessing the patient this morning, she denies any chest discomfort or shortness of breath at this time. She has had no palpitations, lightheadedness, dizziness, or syncope. There is no history of hemoptysis, hematemesis, or melena. PAST MEDICAL HISTORY: Remarkable for type 1 diabetes mellitus, history of gastric outlet obstruction with surgical repair, history of coarctation of the aorta with surgical repair, with an open left lateral thoracotomy at the first month of life. PAST SURGICAL HISTORY: The patient had coarctation repair and gastric outlet obstruction repair. ALLERGIES: None known. REVIEW OF SYSTEMS: GENERAL: The patient has had no change in her weight. EYES: No visual problems. ENT: No ear pain or sore throat or congestion. CARDIOVASCULAR: She has had some chest discomfort and some shortness of breath, but no orthopnea, PND, or pedal edema. RESPIRATORY: As mentioned reveals shortness of breath, but no cough and no phlegm production. GASTROINTESTINAL: No abdominal discomfort. No nausea, vomiting or diarrhea. GENITOURINARY: No dysuria or incontinence. SKIN: No rashes or erythema. NEUROLOGIC: Describes as outlined per history of present illness. PSYCHIATRIC: No depression or anxiety. PHYSICAL EXAMINATION: GENERAL: This patient appears to be comfortable, in no apparent distress. VITAL SIGNS: Stable. HEENT: Head is normocephalic and atraumatic. NECK: Without jugular venous distention. The carotids are without bruits. The neck is supple. There is no thyromegaly or lymphadenopathy. Trachea is central. LUNGS: Remarkable for adequate air entry bilaterally. CARDIAC EXAM: Normal heart sounds with no murmurs, rubs or gallops. ABDOMEN: Soft and benign. EXTREMITIES: Without cyanosis, clubbing or edema. Peripheral pulses are palpable and essentially equal throughout. NEUROLOGIC: Generalized weakness in the arms and the legs with the left leg being slightly weaker than the right. The patient has roughly 3-4/5 muscle strength in the arms and the legs. IMPRESSION: This is a pleasant patient who is presenting predominantly with neurologic symptoms, which are mostly those of weakness, tingling, and extremity discomfort on the leg, particularly the right with some symptoms suggestive of sciatic nerve compression. The patient, however, has had a detailed neurologic evaluation by Dr. Hyatt, who is continuing to have additional studies, which are required for further evaluation. He feels that the patient had decreased vibratory sensation. He was thinking about the possibility of chronic inflammatory polyneuritis demyelinating disease. The patient had a coronary CT angiography, which was fairly benign. There was no evidence of coronary artery disease. Her echocardiogram has revealed preserved LV systolic function with no significant valvular pathology with moderate concentric left ventricular hypertrophy. The aortic valve was described as not being bicuspid. The patient had a CT scan of the chest, which I have reviewed carefully. She does have a patent site of coarctation repair. There is a mild bulge just distal to the repair site, which is likely due to her prior surgical intervention. Based upon my evaluation, I do not detect any significant obstruction that would limit the flow of blood to the lower extremities. It is highly likely that this patient's problems are neurologic in order. I have detected generalized muscle weakness in the upper and lower extremities. The patient has palpable pulses in the femoral and dorsalis pedis bilaterally. The patient has no evidence of vascular compromise. The recommendation based upon my assessment is to continue with conservative management for her vascular disease and continue to evaluate her shortness of breath and chest discomfort as per Dr. Jillian Leavitt. The patient's predominant problem is that of a neurologic disorder. I would like to thank you for allowing me to participate in the care of this patient. TID: [id number] RECEIPT: [id number]
[2025-03-21] MEDS ORDERED: GADOTERATE MEGLUMINE 10 MMOL/20 ML VIAL IV ONE (14:13)
--- NOTE | 2025-03-21 15:37 | HMCIMG ---
EXAM: MR Lumbar Spine Without Intravenous Contrast. CLINICAL HISTORY: TECHNIQUE: Magnetic resonance images of the lumbar spine without and with intravenous intravenous contrast in multiple planes. CONTRAST: Intravenous contrast COMPARISON: None provided. FINDINGS: VERTEBRAE: No acute fracture or focal osseous lesion. No abnormal enhancement. ALIGNMENT: Bony alignment is anatomic. SPINAL CORD AND CAUDA EQUINA: No abnormal signal or mass. FINDINGS BY LEVEL: L1-L2: No central canal or foraminal stenosis. L2-L3: No central canal or foraminal stenosis. There is an annular bulge 2.3 mm with bilateral facet hypertrophy. L3-L4: No central canal or foraminal stenosis. L4-L5: No central canal or foraminal stenosis. Bilateral facet hypertrophic changes are seen L5-S1: No central canal or foraminal stenosis. Bilateral facet hypertrophic changes are seen PARASPINAL SOFT TISSUES: Unremarkable. 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 IMPRESSION: 1. No evidence of metastatic disease. Small disc bulges with multilevel facet hypertrophic changes as described /[place]
--- NOTE | 2025-03-21 15:39 | HMCIMG ---
EXAM: MR Cervical Spine Without IV contrast. CLINICAL HISTORY: NO treatment plan pending MRI results inpatient. Thank you!! TECHNIQUE: Magnetic resonance images of the cervical spine without intravenous contrast in multiple planes. Series acquired: 2 - LOCALIZER - TR: 700.0 - TE: 79.9 - ET: 1.0 - Thk: 5.0 300 - SC:SAG T2 FRFSE - TR: 3465.0 - TE: 118.4 - ET: 27.0 - Thk: 3.0 400 - SC:SAG T1 FSE - TR: 453.0 - TE: 16.1 - ET: 4.0 - Thk: 3.0 500 - SC:SAG STIR - TR: 4352.0 - TE: 39.7 - ET: 13.0 - Thk: 3.0 600 - SC:AX T2 FRFSE - TR: 4817.0 - TE: 120.4 - ET: 27.0 - Thk: 3.0 2400 - SC:G+ SAG T1 FS - TR: 493.0 - TE: 16.1 - ET: 7.0 - Thk: 3.0 2500 - SC:G+ AX T1 FS - TR: 678.0 - TE: 18.5 - ET: 10.0 - Thk: 3.0 CONTRAST: None. Clariscan 11 cc. COMPARISON: None provided. Images with and without IV contrast FINDINGS: VERTEBRAE: No compressions are seen. No masses are seen. There is no infiltrative bone marrow disease. ALIGNMENT: Bony alignment is anatomic. SPINAL CORD/BRAIN: No abnormality is seen in the cord. No abnormal enhancement. No abnormality is seen in the visualized portions of the brain. FINDINGS BY LEVEL: C2-C3: The disc space height is maintained. There is adequate disc hydration. There is no bulge or herniation. No neural foraminal stenosis is seen. No spinal canal stenosis is seen. Facets are normal. C3-C4: The discs shows a protrusion 2 mm with bilateral facet and uncinate hypertrophy. Moderate left-sided neuroforaminal stenosis with bilateral facet hypertrophic changes. Mild cord compression seen. C4-C5: Disc protrusion is seen 2.7 mm with cord compression and moderate right-sided neuroforaminal stenosis. Bilateral facet hypertrophic changes are seen C5-C6: The disc is desiccated with a 3 mm disc protrusion causing cord compression. Bilateral facet and uncinate hypertrophy without neural foraminal stenosis. C6-C7: The disc space height is maintained. There is adequate disc hydration. There is no bulge or herniation. No neural foraminal stenosis is seen. No spinal canal stenosis is seen. Facets are normal. C7-T1: The disc space height is maintained. There is adequate disc hydration. There is no bulge or herniation. No neural foraminal stenosis is seen. No spinal canal stenosis is seen. Facets are normal. PARASPINAL SOFT TISSUES: No soft tissue abnormality is noted. IMPRESSION: Multilevel degenerative changes with areas of cord compression and neuroforaminal stenosis No acute cervical spinal abnormality. /[place]
--- NOTE | 2025-03-21 15:51 | HMCIMG ---
EXAM: MR Thoracic Spine with and with and without Intravenous Contrast. CLINICAL HISTORY: LE weakness treatment plan pending MRI results inpatient. Thank you!! TECHNIQUE: Magnetic resonance images of the thoracic spine with and without intravenous contrast in multiple planes. Series acquired: 8 - COR T2 LOC SSFSE - TR: 729.6 - TE: 64.7 - ET: 1.0 - Thk: 5.0 14 - SAG T2 FRFSE - TR: 3216.0 - TE: 121.4 - ET: 21.0 - Thk: 4.0 15 - SAG T1 FSE (FS) - TR: 513.0 - TE: 17.2 - ET: 7.0 - Thk: 4.0 16 - SAG STIR - TR: 4817.0 - TE: 37.8 - ET: 17.0 - Thk: 4.0 17 - AX T2 FRFSE - TR: 5393.0 - TE: 113.8 - ET: 15.0 - Thk: 4.0 26 - G+SAG T1 FSE - TR: 511.0 - TE: 17.1 - ET: 7.0 - Thk: 4.0 27 - G+ AX T1 - TR: 688.0 - TE: 10.4 - ET: 9.0 - Thk: 4.0 1000 - PASTED IMAGES - TE: 105.4 - ET: 21.0 - Thk: 5.0 CONTRAST: Intravenous COMPARISON: None provided. FINDINGS: SPINAL CORD: Normal cord signal and contour. No abnormal enhancement was seen VERTEBRAE: No acute fracture or aggressive appearing osseous lesion. ALIGNMENT: Bony alignment is anatomic. DEGENERATIVE CHANGES: No significant disc disease. No spinal canal or foraminal stenosis. PARASPINAL SOFT TISSUES: Unremarkable. IMPRESSION: 1. No acute thoracic spine findings. /[place]
--- NOTE | 2025-03-21 15:55 | NUR ---
BLOOD SUGAR 57, ASYMPTOMATIC. SNACK GIVEN.
--- NOTE | 2025-03-21 16:00 | NUR ---
HELD SCHEDULED INSULIN OF 3 UNITS REGULAR INSULIN.
--- NOTE | 2025-03-21 16:24 | PN ---
[facility] PROGRESS NOTE Date of Service: Mar 21, 2025 Time of Service: 16:07 HISTORY OF PRESENT ILLNESS: 39-year-old female with past medical history insulin dependent type 1 diabetes mellitus, history of coarctation of aorta status post surgery as a child who presented the hospital secondary to shortness of breath with exertion, chest pain, lower extremity weakness. Patient states since January last year she has noted that she has been having progressive shortness of breath. Her shortness of breath is present with exertional mainly ambulation. She can take 20s steps before getting short of. She also gets mildly short of breath with daily activities including cooking. She complains of midsternal chest pain which radiates towards her back. She describes the pain as heartburn in nature. She currently does not have any active chest pain when she came to the hospital. She denied any upper extremity numbness, weakness. Additionally she has also noted that she is having progressive weakness of her lower extremity. She has a difficult time with ambulation. She does ambulate at home. She had sprained her right ankle around one year ago and has noted pain in the ankle. She had x- ray done in the ER and she was treated for sprain conservatively. She denies any previous history of hypertension. She went to see her primary tank assembler Dr. Leavitt today where she was recommended to come to the hospital for further evaluation. She was sent as a direct admission. Furthermore she has a history of insulin dependent diabetes and currently takes Tresiba and Humalog at home. Patient's blood pressure on presentation was 167/72, heart rate was in the 90s, temperature was 99.0 SUBJECTIVE: 03/17/25: Patient was seen in room 220, along with her . Patient was alert, awake and oriented. Patient reports shortness of breath with exertion, weakness in her B/L lower extremities. Patient reports ankle pain in her right foot, attributes it to her ankle sprain which she had a few days ago. Patient reports recurrent buckling of her knee joints. Patient denies cramping in her b/l lower extremities. Patient denies any paresthesia in extremities. Patient denies any motor weakness in b/l upper extremities. Patient denied fever, chills, palpitations. Patient denies any current chest pain. 03/18/25: Patient was seen in room 220, along with her . Patient was alert, awake and oriented. Patient doesn't have any active complaints. Patient was informed by Dr. Leavitt that she has coarctation of aorta at the same previous site she got operated for during her childhood. Patient asked when will her scheduled MRI be done today. Patient denies cramping in her b/l lower extremities. Patient denies any paresthesia in extremities. Patient denies any motor weakness in b/l upper extremities. Patient denied fever, chills, palpitations. Patient denies any current chest pain. there was >20 SBP drop in right upper extremity compared to left upper extremity. 03/19/25: Patient was seen in room 220. Patient was alert, awake and oriented. Patient doesn't have any active complaints. Patient had concerns if its necessary to get the MRI done and conveyed that she didn't want to get her MRI done. Patient is waiting for her recommendations from Dr. Cooper on Friday for her coarctation of aorta. Patient denies cramping in her b/l lower extremities. Patient denies any paresthesia in extremities. Patient denies any motor weakness in b/l upper extremities. Patient denied fever, chills, palpitations. Patient denies any current chest pain. 03/20/25: Patient was seen and evaluated at bedside today. She is pending MRI lumbar spine as well as evaluation by Dr. Cooper, tank assembler, tomorrow. Due to recent episodes of hypoglycemia, she was seen by endocrinology consult and her insulin was adjusted. At my time of evaluation, patient reports no weakness or cramps in the lower extremities and patient states that it is due to her not walking while being hospitalized. She is otherwise vitally stable with blood pressure 127/70. 03/21/25: Patient was seen and evaluated at bedside today. Patient underwent MRI today. Patient was consulted by Dr. Cooper and his impression was "It is highly likely that this patient's problems are neurologic in order." MRI of cervical spine show Multilevel degenerative changes with areas of cord compression and neuroforaminal stenosis. MRI of lumbar spine show Small disc bulges with multilevel facet hypertrophic changes. MRI of Thoracic spine was unremarkable. Patient blood pressure values in four extremities today were Left arm-128/83, Right arm-152/84, left leg-155/90, right leg-149/87. patient denies any other active complaints. Patient denies any motor weakness in b/l upper extremities. Patient denied fever, chills, palpitations. Patient denies any current chest pain. REVIEW OF SYSTEMS CONSTITUTIONAL: Denies fevers, chills, or night sweats. No unintentional weight loss reported. NEUROLOGICAL: Denies headache, amaurosis fugax, motor weakness, sensory deficit, vertigo/spinning sensation, gait abnormalities, or tremors. ENT: No hearing loss, otalgia, otorrhea, rhinitis, rhinorrhea, hoarseness, or sore throat. CARDIOVASCULAR: Positive for dyspnea on exertion, PULMONARY: Denies any shortness of breath, cough, phlegm/sputum, hemoptysis, pleuritic chest pain. SLEEP: Denies morning headaches, daytime somnolence or napping. Denies difficulty falling asleep, staying asleep, waking from sleep. Denies knowledge of snoring. GASTROINTESTINAL: Denies any type of dysphagia to either liquids or solids. Denies nausea, vomiting, pyrosis, early satiety, abdominal pain, diarrhea, constipation, or changes in stool consistency or caliber. Denies coffee-ground emesis, hematemesis, hematochezia, or melanotic stools. GENITOURINARY: Denies frequency, urgency, nocturia, hematuria or incontinence (Storage/Irritative symptoms.) Low urinary stream, straining to void, urinary intermittency or hesitancy, splitting of the voiding stream, terminal dribbling. ENDOCRINOLOGIC: Denies polyuria, polydipsia, polyphagia or heat/cold intolerances. HEMATOLOGIC: Denies thrombophilia/previous clots, or coagulopathy/bleeding disorders. ONCOLOGIC: Denies personal history of malignancy. DERMATOLOGIC: Denies rashes or pruritus. PSYCHIATRIC: Denies any suicidal or homicidal ideation. Denies hallucinations. EXTREMITIES: b/l lower extremity weakness PHYSICAL EXAM GENERAL APPEARANCE: The patient is awake, alert, and oriented, in no acute cardiopulmonary distress. NEUROLOGICAL: Cranial nerves II-XII grossly intact. Motor is 5/5 in bilateral upper and lower extremities proximal to distal. No sensory deficits. HEENT: Face is symmetric. Pupils are equal and reactive. Extraocular movements are intact. NECK: Supple. No JVD. No thyromegaly. No submental, submandibular, pre- /postauricular, occipital or supraclavicular lymphadenopathy. CHEST: Normal chest expansion. No Telemetry. LUNGS: Absence of any rales, rhonchi or any wheezing. CARDIOVASCULAR: Regular. S1 and S2 normal. No appreciable rubs, murmurs or gallops. ABDOMEN: Soft, nontender, and nondistended. There is no rebound, voluntary guarding, or rigidity. : Deferred. No Cope. EXTREMITIES: Patient's lower extremity he is thin. She does move her lower extremities without issue. Unable to dorsiflex her right ankle secondary to pain. motor strength in left lower extremity. SKIN: No skin breakdown. Vital Signs (last 8hr) Date Time Temp Pulse Resp B/P (MAP) Pulse Ox O2 Delivery O2 Flow Rate FiO2 03/21/25 13:30 161/90 03/21/25 13:30 167/78 03/21/25 13:30 149/87 03/21/25 13:30 152/86 03/21/25 13:30 155/90 03/21/25 13:30 128/83 03/21/25 11:30 97.9 94 20 154/80 100 Room Air LABS: Laboratory: Test 03/21/25 15:55 03/21/25 03:20 03/20/25 15:51 03/20/25 03:48 Range/Units Whole Blood Glucose 57 #L 70-110 MG/DL White Blood Count 9.1 4.8-10.8 K/uL Red Blood Count 3.55 L 4.00-5.50 MIL/uL Hemoglobin 10.7 L 12.0-16.0 g/dL Hematocrit 30.9 L 36-48 % Mean Corpuscular Volume 87.0 79-99 fL Mean Corpuscular Hemoglobin 30.1 27.0-33.0 pg Mean Corpuscular Hemoglobin Concent 34.6 32.0-36.0 g/dL Red Cell Distribution Width 12.3 11.0-15.5 % Platelet Count 311 130-400 K/uL Mean Platelet Volume 10.9 H 7.5-10.5 fL Nucleated Red Blood Cells 0.0 0.0-0.19 % Sodium Level 140 136-145 mmol/L Potassium Level 4.2 3.5-5.1 mmol/L Chloride Level 107 101-111 mmol/L Carbon Dioxide Level 26 21-32 mmol/L Blood Urea Nitrogen 22 H 7-18 mg/dL Creatinine 0.4 L 0.5-1.0 mg/dL Glomerular Filtration Rate Calc 127 >90 mL/min Random Glucose 131 H 70-105 mg/dL Total Calcium 8.1 L 8.5-10.1 mg/dL Bedside Glucose Comment Notified Nurse Immature Granulocyte % (Auto) 0.1 0-1 % Neutrophils (%) (Auto) 49.9 40.0-77.0 % Lymphocytes (%) (Auto) 34.2 21.0-51.0 % Monocytes (%) (Auto) 10.4 3.0-13.0 % Eosinophils (%) (Auto) 4.8 0.0-8.0 % Basophils (%) (Auto) 0.6 0.0-5.0 % Neutrophils # (Auto) 4.0 1.8-7.7 K/uL Lymphocytes # (Auto) 2.8 1.0-4.8 K/uL Monocytes # (Auto) 0.8 0.1-1.0 K/uL Eosinophils # (Auto) 0.39 0.00-0.70 K/uL Basophils # (Auto) 0.05 0.00-0.20 K/uL Absolute Immature Granulocyte (auto 0.01 0-1 K/uL Current Medications Medications (Trade) Dose Ordered Sig/Jamila Route PRN Reason Start Time Stop Time Status Last Admin Dose Admin Acetaminophen (TYLenol 500MG TAB) 500 mg Q6H PRN PO MILD PAIN (1-3) 03/16/25 15:00 04/15/25 14:59 03/20/25 18:14 500 MG Ceftriaxone Sodium (ROCEphine 1G INJ) 1 gm Q24H IVPB 03/18/25 12:30 03/28/25 12:29 03/21/25 12:33 1 GM Dextrose (D50w) 50 ml AD PRN IV HYPOGLYCEMIA PROTOCOL 03/16/25 15:00 04/15/25 14:59 Famotidine (Pepcid 20mg Vial) 20 mg BID IV 03/16/25 21:00 04/15/25 20:59 03/21/25 08:53 20 MG Glucagon (Glucagon 1mg Kit) 1 mg AD PRN IM HYPOGLYCEMIA PROTOCOL 03/16/25 15:00 04/15/25 14:59 Insulin Glargine (LANtus 100 UNITS/ML 10 ML VIAL) 14 units DAILY SQ 03/17/25 09:00 03/20/25 07:17 DC 03/19/25 08:45 14 UNITS Insulin Glargine (LANtus 100 UNITS/ML 10 ML VIAL) 16 units DAILY SQ 03/20/25 09:00 04/19/25 08:59 03/21/25 08:50 16 UNITS Insulin Glargine (LANtus 100 UNITS/ML 10 ML VIAL) 20 units DAILY SQ 03/17/25 09:00 03/17/25 05:36 DC Insulin Human Regular (humuLIN R 100 UNIT/ML 3ML) 3 unit TIDAC SQ 03/18/25 07:30 03/18/25 12:14 DC 03/18/25 11:58 3 UNIT Insulin Human Regular (humuLIN R 100 UNIT/ML 3ML) 3 unit TIDAC SQ 03/20/25 07:30 04/19/25 07:29 03/21/25 12:33 3 UNIT Insulin Human Regular (humuLIN R 100 UNIT/ML 3ML) 4 unit TIDAC SQ 03/18/25 17:00 03/19/25 22:26 DC 03/19/25 12:17 4 UNIT Insulin Human Regular (humuLIN R 100 UNIT/ML 3ML) INSULIN SLIDING SCAL... ACHS SQ 03/16/25 16:30 04/15/25 16:29 03/21/25 12:31 4 UNIT Magnesium Sulfate 50 ml @ 0 mls/hr PROTOCOL PRN IV hypomagnesemia 03/16/25 15:00 04/15/25 14:59 Ondansetron HCl (zoFRAN 4MG INJ) 4 mg Q6H PRN IVP NAUSEA/VOMITING 03/16/25 17:00 04/15/25 16:59 03/18/25 20:08 4 MG Potassium Chloride 100 ml @ 100 mls/hr AD PRN IV POTASSIUM PROTOCOL 03/16/25 15:00 04/15/25 14:59 Potassium Chloride (K-Dur/Klor-Con 20meq) 20 meq AD PRN PO POTASSIUM PROTOCOL 03/16/25 15:00 04/15/25 14:59 03/17/25 08:09 20 MEQ Potassium Chloride (KCl 10% Elixir 20meq/15ml) 20 meq AD PRN PO POTASSIUM PROTOCOL 03/16/25 15:00 04/15/25 14:59 DIAGNOSTICS / RADIOLOGY: [facility] [address] [place] [address] [id number] IMAGING REPORT Signed PATIENT: ANGELA BALLARD MR#: [id number] : 1985 SEX: F AGE: 39 LOCATION: 2DH ORDER 28 STATUS: ADM IN REPORT#: [id number] SERVICE 26 REASON: LE weakness ORDERING PHYSICIAN: DICK CONSTANTINO MD PROCEDURE: TH SPN WWO - MR SPINAL CANAL, THORACIC WWO EXAM: MR Thoracic Spine with and with and without Intravenous Contrast. CLINICAL HISTORY: LE weakness treatment plan pending MRI results inpatient. Thank you!! TECHNIQUE: Magnetic resonance images of the thoracic spine with and without intravenous contrast in multiple planes. Series acquired: 8 - COR T2 LOC SSFSE - TR: 729.6 - TE: 64.7 - ET: 1.0 - Thk: 5.0 14 - SAG T2 FRFSE - TR: 3216.0 - TE: 121.4 - ET: 21.0 - Thk: 4.0 15 - SAG T1 FSE (FS) - TR: 513.0 - TE: 17.2 - ET: 7.0 - Thk: 4.0 16 - SAG STIR - TR: 4817.0 - TE: 37.8 - ET: 17.0 - Thk: 4.0 17 - AX T2 FRFSE - TR: 5393.0 - TE: 113.8 - ET: 15.0 - Thk: 4.0 26 - G+SAG T1 FSE - TR: 511.0 - TE: 17.1 - ET: 7.0 - Thk: 4.0 27 - G+ AX T1 - TR: 688.0 - TE: 10.4 - ET: 9.0 - Thk: 4.0 1000 - PASTED IMAGES - TE: 105.4 - ET: 21.0 - Thk: 5.0 CONTRAST: Intravenous COMPARISON: None provided. FINDINGS: SPINAL CORD: Normal cord signal and contour. No abnormal enhancement was seen VERTEBRAE: No acute fracture or aggressive appearing osseous lesion. ALIGNMENT: Bony alignment is anatomic. DEGENERATIVE CHANGES: No significant disc disease. No spinal canal or foraminal stenosis. PARASPINAL SOFT TISSUES: Unremarkable. IMPRESSION: 1. No acute thoracic spine findings. /[place] DICTATED BY: ERICA CROSS MD DATE: 03/21/251650 ELECTRONICALLY SIGNED BY: ERICA CROSS MD DATE: 03/21/251650 [facility] [address] [place] [address] IMAGING REPORT Signed PATIENT: ANGELA BALLARD MR#: [id number] : 1985 SEX: F AGE: 39 LOCATION: 2DH ORDER 28 [facility]US: [facility] REPORT#: [id number] SERVICE 26 REASON: No ORDERING PHYSICIAN: DICK CONSTANTINO MD PROCEDURE: L SPN WWO - MR SPINAL CANAL, LUMB W/WO CON EXAM: MR Lumbar Spine Without Intravenous Contrast. CLINICAL HISTORY: TECHNIQUE: Magnetic resonance images of the lumbar spine without and with intravenous intravenous contrast in multiple planes. CONTRAST: Intravenous contrast COMPARISON: None provided. FINDINGS: VERTEBRAE: No acute fracture or focal osseous lesion. No abnormal enhancement. ALIGNMENT: Bony alignment is anatomic. SPINAL CORD AND CAUDA EQUINA: No abnormal signal or mass. FINDINGS BY LEVEL: L1-L2: No central canal or foraminal stenosis. L2-L3: No central canal or foraminal stenosis. There is an annular bulge 2.3 mm with bilateral facet hypertrophy. L3-L4: No central canal or foraminal stenosis. L4-L5: No central canal or foraminal stenosis. Bilateral facet hypertrophic changes are seen L5-S1: No central canal or foraminal stenosis. Bilateral facet hypertrophic changes are seen PARASPINAL SOFT TISSUES: Unremarkable. 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 IMPRESSION: 1. No evidence of metastatic disease. Small disc bulges with multilevel facet hypertrophic changes as described /[place] DICTATED BY: ERICA CROSS MD DATE: 03/21/251635 ELECTRONICALLY SIGNED BY: ERICA CROSS MD DATE: 03/21/251635 [facility] [address] [address] IMAGING REPORT Signed PATIENT: ANGELA BALLARD MR#: [id number] : 1985 SEX: F AGE: 39 LOCATION: 2DH ORDER 28 STATUS: [facility] REPORT#: [id number] SERVICE 26 REASON: NO ORDERING PHYSICIAN: DICK CONSTANTINO MD PROCEDURE: C SPN WWO - MR SPINAL CANAL, CERV W/WO CON EXAM: MR Cervical Spine Without IV contrast. CLINICAL HISTORY: NO treatment plan pending MRI results inpatient. Thank you!! TECHNIQUE: Magnetic resonance images of the cervical spine without intravenous contrast in multiple planes. Series acquired: 2 - LOCALIZER - TR: 700.0 - TE: 79.9 - ET: 1.0 - Thk: 5.0 300 - SC:SAG T2 FRFSE - TR: 3465.0 - TE: 118.4 - ET: 27.0 - Thk: 3.0 400 - SC:SAG T1 FSE - TR: 453.0 - TE: 16.1 - ET: 4.0 - Thk: 3.0 500 - SC:SAG STIR - TR: 4352.0 - TE: 39.7 - ET: 13.0 - Thk: 3.0 600 - SC:AX T2 FRFSE - TR: 4817.0 - TE: 120.4 - ET: 27.0 - Thk: 3.0 2400 - SC:G+ SAG T1 FS - TR: 493.0 - TE: 16.1 - ET: 7.0 - Thk: 3.0 2500 - SC:G+ AX T1 FS - TR: 678.0 - TE: 18.5 - ET: 10.0 - Thk: 3.0 CONTRAST: None. Clariscan 11 cc. COMPARISON: None provided. Images with and without IV contrast FINDINGS: VERTEBRAE: No compressions are seen. No masses are seen. There is no infiltrative bone marrow disease. ALIGNMENT: Bony alignment is anatomic. SPINAL CORD/BRAIN: No abnormality is seen in the cord. No abnormal enhancement. No abnormality is seen in the visualized portions of the brain. FINDINGS BY LEVEL: C2-C3: The disc space height is maintained. There is adequate disc hydration. There is no bulge or herniation. No neural foraminal stenosis is seen. No spinal canal stenosis is seen. Facets are normal. C3-C4: The discs shows a protrusion 2 mm with bilateral facet and uncinate hypertrophy. Moderate left-sided neuroforaminal stenosis with bilateral facet hypertrophic changes. Mild cord compression seen. C4-C5: Disc protrusion is seen 2.7 mm with cord compression and moderate right-sided neuroforaminal stenosis. Bilateral facet hypertrophic changes are seen C5-C6: The disc is desiccated with a 3 mm disc protrusion causing cord compression. Bilateral facet and uncinate hypertrophy without neural foraminal stenosis. C6-C7: The disc space height is maintained. There is adequate disc hydration. There is no bulge or herniation. No neural foraminal stenosis is seen. No spinal canal stenosis is seen. Facets are normal. C7-T1: The disc space height is maintained. There is adequate disc hydration. There is no bulge or herniation. No neural foraminal stenosis is seen. No spinal canal stenosis is seen. Facets are normal. PARASPINAL SOFT TISSUES: No soft tissue abnormality is noted. IMPRESSION: Multilevel degenerative changes with areas of cord compression and neuroforaminal stenosis No acute cervical spinal abnormality. /[place] DICTATED BY: ERICA CROSS MD DATE: 03/21/25 163 ELECTRONICALLY SIGNED BY: ERICA CROSS MD DATE: 03/21/25 163 ASSESSMENT: Suspected coarctation of aorta status post repair as a child Progressive dyspnea on exertion. Differential secondary to coarctation of aorta versus CHF Lower extremity weakness Hypertension Insulin dependent diabetes mellitus chest pain PLAN: Progressive dyspnea on exertion. Differential secondary to coarctation of aorta versus CHF * Will monitor blood pressure in both arms and both lower extremity to assess for significant gradients * EKG ordered, which showed normal sinus rhythm without any abnormalities. * Troponin - 5, BNP- 41, * ECHO was ordered, results show LVEF of 50%, Moderate Left ventricular hypertrophy. * CTA was ordered which showed focal coarctation of aorta, 1.6 cm * Cardiology was consulted and CT Cardiac Angiography with contrast was ordered, results show absence of CAD, however, >75% reduction in diameter of coarctation of the aorta. Echo limited views of descending aorta, but was otherwise normal. * There was >20 SBP drop in right upper extremity compared to left upper extremity. * Blood pressure values in four extremities today(03/21/25) were Left arm- 128/83, Right arm-152/84, left leg-155/90, right leg-149/87. * CHF was ruled out. * Patient was consulted by Dr. Cooper, tank assembler and his impression was "It is highly likely that this patient's problems are neurologic in order." * Chest X-ray showed borderline cardiomegaly. * Follow up with the ultrasound KACEY. Lower extremity weakness * b/l lower extremity weakness w/ decreased motor strength. * US B/L lower extremity Duplex scan was ordered, results were unremarkable. * Neurology was consulted, they recommended MRI of lumbar spine to evaluate for disc herniation and nerve compression. EMG neuroconduction study as outpatient to assess electrical activity from spine to legs and identify lower extremity nerve injuries. Primary care physician referral required for EMG test. * CT lumbar spine, CT Thoracic spine, CT head w/o contrast was ordered. CT lumbar spine, thoracic spine results were unremarkable. Ct head findings were unremarkable. * MRI of cervival, lumbar, thoracic spine was ordered. MRI of cervical spine show Multilevel degenerative changes with areas of cord compression and neuroforaminal stenosis. MRI of lumbar spine show Small disc bulges with multilevel facet hypertrophic changes. MRI of Thoracic spine was unremarkable . * CT Cardiac Angiography with contrast was ordered, results show absence of CAD, however, >75% reduction in diameter of coarctation of the aorta. * Vitamin B12 was ordered, results show 451. * Ankle X-ray of right foot was ordered, which was unremarkable Suspected coarctation of aorta status post repair as a child * H/O coarctation of aorta s/p repair when she was 23 days old Insulin dependent diabetes mellitus * H/O type 1 DM. HbA1c of 6.5 * A consult was placed for endocrinology. * continue Lantus 14 units daily and adjust for fasting glucose. * decrease Regular insulin to 3 units three times before meals due to hypoglycemia. * Continue low dose sliding scale insulin. * follow on plasma renin, serum aldosterone, plasma fractionated metanephrines and normetanephrine. * Monitor glucose q x 6 hourly. * Continue carb consistent diet. * Keep glucose less than 180 mg/dl. * As per endocrinology recommendations, Aldosterone serum, renin, plasma metanephrines were ordered will follow with results. Chest pain * EKG ordered, which showed normal sinus rhythm without any abnormalities. * Troponin - 5, BNP- 41, * ECHO was ordered, results show LVEF of 50%, Moderate Left ventricular hypertrophy. * CTA was ordered which showed focal coarctation of aorta, 1.6 cm * Cardiology was consulted and CT Cardiac Angiography with contrast was ordered, results show absence of CAD, however, >75% reduction in diameter of coarctation of the aorta. Echo limited views of descending aorta, but was otherwise normal. * CHF was ruled out. * Chest X-ray showed borderline cardiomegaly. ATTESTATION BY PHYSICIAN I have seen and examined the patient. I reviewed the documentation, medical decision making, and treatment plan as noted by the resident physician above. I agree with the findings and plan of care. LISHA MARTINEZ MD, SHAJI MD Mar 21, 2025 16:24
--- NOTE | 2025-03-21 16:36 | NUR ---
REPORT GIVEN TO LOGAN COLON AND PATIENT WILL TRANSFER TO ROOM 304 VIA WHEELCHAIR ALONG WITH PERSONAL BELONGINGS.
--- NOTE | 2025-03-21 16:47 | NUR ---
RE CHECK BLOOD SUGAR 87.
--- NOTE | 2025-03-21 18:32 | NUR ---
ARRIVAL TO UNIT PT ARRIVED VIA WHEELCHAIR. A&OX4. NON LABORED BREATHING. FAMILY AT BEDSIDE. NOTED 20G TO LEFT FOREARM. NO QUESTIONS AT THIS TIME.
--- NOTE | 2025-03-21 21:04 | PN ---
Endocrinology progress note DOS:03/21/25 subjective: Home diabetic regimen: tresiba 15 units daily and humalog 7 units qac before meals Hba1c 6.5% I saw this patient recently in the hospital and am cortisol was checked due to intermittent low blood pressure. am cortisol was normal 17.2, so there was no evidence of adrenal insufficiency. adrenal hormonal work up result is pending. cardiology is following for hx of coarctation and possible stent restenosis. MRI of upper and lower spine are pending. echo show Conclusion LVEF is 50%. Moderate concentric left ventricular hypertrophy. CT head, thoracic and lumbar spine was normal. REVIEW OF SYSTEMS CONSTITUTIONAL: Denies fevers, chills, or night sweats. No unintentional weight loss reported. NEUROLOGICAL: Denies headache, amaurosis fugax, motor weakness, sensory deficit, vertigo/spinning sensation, gait abnormalities, or tremors. ENT: No hearing loss, otalgia, otorrhea, rhinitis, rhinorrhea, hoarseness, or sore throat. CARDIOVASCULAR: Positive for dyspnea on exertion, PULMONARY: Denies any shortness of breath, cough, phlegm/sputum, hemoptysis, pleuritic chest pain. SLEEP: Denies morning headaches, daytime somnolence or napping. Denies difficulty falling asleep, staying asleep, waking from sleep. Denies knowledge of snoring. GASTROINTESTINAL: Denies any type of dysphagia to either liquids or solids. Denies nausea, vomiting, pyrosis, early satiety, abdominal pain, diarrhea, constipation, or changes in stool consistency or caliber. Denies coffee-ground emesis, hematemesis, hematochezia, or melanotic stools. GENITOURINARY: Denies frequency, urgency, nocturia, hematuria or incontinence (Storage/Irritative symptoms.) Low urinary stream, straining to void, urinary intermittency or hesitancy, splitting of the voiding stream, terminal dribbling. ENDOCRINOLOGIC: Denies polyuria, polydipsia, polyphagia or heat/cold intolerances. HEMATOLOGIC: Denies thrombophilia/previous clots, or coagulopathy/bleeding disorders. ONCOLOGIC: Denies personal history of malignancy. DERMATOLOGIC: Denies rashes or pruritus. PSYCHIATRIC: Denies any suicidal or homicidal ideation. Denies hallucinations. 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 - Emergency room visit in September for sprained right ankle after fall at home Surgical History - Retinal detachment surgery in 2018 - Coarctation of the aorta repair at 23 days old - Surgery for muscle tightening in stomach at 10 days old Medications and Supplements - Insulin for type one diabetes - Always taking since diagnosis at age 8 - Avastin eye injections in both eyes due to prolonged diabetes - Received in the past Social History - Occupation: Works at a [employer] job Coded Allergies: levofloxacin (Unverified Allergy, Unknown, NAUSEA/VOMITING, 03/16/25) ASSESSMENT: Type 1 Diabetes mellitus Home diabetic regimen: tresiba 15 units daily and humalog 7 units qac before meals Hba1c 6.5% Hypertension I saw this patient recently in the hospital and am cortisol was checked due to intermittent low blood pressure. am cortisol was normal 17.2, so there was no evidence of adrenal insufficiency. she now reports episodes of elevated BP, chest pain and SOB-improving now. my suspicion is low for hyperaldosteronism or pheochromocytoma and labs has been ordered.. Suspected coarctation of aorta status post repair as a child, cardiology is following and cardiac work up is in progress. Progressive dyspnea on exertion. Differential secondary to coarctation of aorta versus CHF Lower extremity weakness-pending mri of upper and lower extremities. chest pain - improved PLAN: decrease Lantus to 14 units daily and adjust for fasting glucose. continue Regular insulin 3 units three times before meals decrease low dose to very low dose sliding scale insulin. follow on plasma renin, serum aldosterone, plasma fractionated metanephrines and normetanephrines. Monitor glucose q x 6 hourly. Continue carb consistent diet. Keep glucose less than 180 mg/dl. Vitals/Labs Vital Signs Date Time Temp Pulse Resp B/P (MAP) Pulse Ox O2 Delivery O2 Flow Rate FiO2 03/21/25 20:23 98.1 91 18 123/77 100 Room Air 03/21/25 08:00 0 21 Laboratory Tests 03/21/25 03:20 Medications Current Medications Famotidine 20 mg BID IV Last administered on 03/21/25at 20:42; Start 03/16/25 at 21:00; Stop 04/15/25 at 20:59 Acetaminophen 500 mg Q6H PRN PO Last administered on 03/21/25at 20:50; Start 03/16/25 at 15:00; Stop 04/15/25 at 14:59 Insulin Human Regular INSULIN SLIDING SCAL... ACHS SQ Last administered on 03/21/25at 12:31; Start 03/16/25 at 16:30; Stop 04/15/25 at 16:29 Dextrose 50 ml AD PRN IV; Start 03/16/25 at 15:00; Stop 04/15/25 at 14:59 Glucagon 1 mg AD PRN IM; Start 03/16/25 at 15:00; Stop 04/15/25 at 14:59 Potassium Chloride 100 ml @ 100 mls/hr AD PRN IV; Start 03/16/25 at 15:00; Stop 04/15/25 at 14:59 Potassium Chloride 20 meq AD PRN PO; Start 03/16/25 at 15:00; Stop 04/15/25 at 14:59 Potassium Chloride 20 meq AD PRN PO Last administered on 03/17/25at 08:09; Start 03/16/25 at 15:00; Stop 04/15/25 at 14:59 Magnesium Sulfate 50 ml @ 0 mls/hr PROTOCOL PRN IV; Start 03/16/25 at 15:00; Stop 04/15/25 at 14:59 Ondansetron HCl 4 mg Q6H PRN IVP Last administered on 03/18/25at 20:08; Start 03/16/25 at 17:00; Stop 04/15/25 at 16:59 Iohexol 75 ml STK-MED ONCE IV; Start 03/16/25 at 16:55; Stop 03/16/25 at 16:55; Status DC Insulin Glargine 20 units DAILY SQ; Start 03/17/25 at 09:00; Stop 03/17/25 at 05:36; Status DC Insulin Glargine 14 units DAILY SQ Last administered on 03/19/25at 08:45; Start 03/17/25 at 09:00; Stop 03/20/25 at 07:17; Status DC Metoprolol Tartrate 50 mg ONCE ONCE PO Last administered on 03/17/25at 08:54; Start 03/17/25 at 08:30; Stop 03/17/25 at 08:31; Status DC Iohexol 35,000 mg STK-MED ONCE IV; Start 03/17/25 at 13:28; Stop 03/17/25 at 13:28; Status DC Metoprolol Tartrate 5 mg STK-MED ONCE IV; Start 03/17/25 at 13:44; Stop 03/17/25 at 13:44; Status DC Metoprolol Tartrate 5 mg STK-MED ONCE IV; Start 03/17/25 at 13:48; Stop 03/17/25 at 13:48; Status DC Insulin Human Regular 3 unit TIDAC SQ Last administered on 03/18/25at 11:58; Start 03/18/25 at 07:30; Stop 03/18/25 at 12:14; Status DC Ceftriaxone Sodium 1 gm Q24H IVPB Last administered on 03/21/25at 12:33; Start 03/18/25 at 12:30; Stop 03/28/25 at 12:29 Insulin Human Regular 4 unit TIDAC SQ Last administered on 03/19/25at 12:17; Start 03/18/25 at 17:00; Stop 03/19/25 at 22:26; Status DC Insulin Human Regular 3 unit TIDAC SQ Last administered on 03/21/25at 12:33; Start 03/20/25 at 07:30; Stop 04/19/25 at 07:29 Insulin Glargine 16 units DAILY SQ Last administered on 03/21/25at 08:50; Start 03/20/25 at 09:00; Stop 04/19/25 at 08:59 Gadoterate Meglumine 10 mmol STK-MED ONCE IV; Start 03/21/25 at 14:13; Stop 03/21/25 at 14:13; Status DC LALO CORNEJO MD Mar 21, 2025 21:04
[2025-03-22] VITALS (7 sets, daily range): BP systolic 95–127; BP diastolic 64–75; PULSE 84–97; RESP 18–19; TEMP 97.7–98.2; O2SAT 99
[2025-03-22 04:37] LABS: IMMATURE GRANULOCYTE ABSOLUTE 0.03 K/uL (0-1); NUCLEATED RED BLOOD CELLS 0.0 % (0.0-0.19); PLATELET COUNT (AUTO) 358 K/uL (130-400); RED BLOOD CELL COUNT(AUTO) 3.72 MIL/uL (4.00-5.50); RED CELL DISTRIBUTION WIDTH 12.4 % (11.0-15.5); WHITE BLOOD COUNT (AUTO) 9.8 K/uL (4.8-10.8)
[2025-03-22 04:46] LABS: CREATININE 0.5 mg/dL (0.5-1.0); GLOMERULAR FILTR. RATE CALC 121.0 mL/min (>90); GLUCOSE,RANDOM 157.0 mg/dL (70-105); SODIUM SERUM 141.0 mmol/L (136-145); UREA NITROGEN, BLOOD 24.0 mg/dL (7-18)
--- NOTE | 2025-03-22 07:56 | PN ---
[facility] CARDIOLOGY PROGRESS NOTE Date Patient Seen: Mar 22, 2025 Time of Visit: 07:54 Interval History: [Continued leg weakness ] Physical Examination: GENERAL: [No acute distress.] HEAD: [Normal with no signs of head trauma.] EYES: [PERRLA, EOMI, conjunctiva and sclera normal.] ENT: [Hearing grossly intact, normal oropharynx.] NECK: [Supple without JVD. There is no tenderness, lymphadenopathy, or masses. No thyromegaly. Normal carotid upstrokes without bruits.] LUNGS: [Clear breath sounds bilaterally. There are right basilar rales one third of the way up the chest. No wheezes, or rhonchi.] HEART: [Normal rate and rhythm. Normal S1 and S2 without mumurs, gallop or rub.] VASC: [Peripheral pulses +2 bilaterally.] ABD: [Bowel sounds normal, soft, nontender, no masses, no organomegaly. No audible bruits.] : [Not examined] LYMPH: [No lymphadenopathy noted.] EXT: [No clubbing, cyanosis or edema.] SKIN: [No rashes or lesions noted.] NEURO: [Awake, alert, and oriented x3.] Laboratory: [ ] Hematology Labs: Test 03/22/25 04:17 Range/Units White Blood Count 9.8 4.8-10.8 K/uL Red Blood Count 3.72 L 4.00-5.50 MIL/uL Hemoglobin 11.2 L 12.0-16.0 g/dL Hematocrit 32.6 L 36-48 % Mean Corpuscular Volume 87.6 79-99 fL Mean Corpuscular Hemoglobin 30.1 27.0-33.0 pg Mean Corpuscular Hemoglobin Concent 34.4 32.0-36.0 g/dL Red Cell Distribution Width 12.4 11.0-15.5 % Platelet Count 358 130-400 K/uL Mean Platelet Volume 11.0 H 7.5-10.5 fL Immature Granulocyte % (Auto) 0.3 0-1 % Neutrophils (%) (Auto) 57.1 40.0-77.0 % Lymphocytes (%) (Auto) 29.4 21.0-51.0 % Monocytes (%) (Auto) 9.0 3.0-13.0 % Eosinophils (%) (Auto) 3.7 0.0-8.0 % Basophils (%) (Auto) 0.5 0.0-5.0 % Neutrophils # (Auto) 5.6 1.8-7.7 K/uL Lymphocytes # (Auto) 2.9 1.0-4.8 K/uL Monocytes # (Auto) 0.9 0.1-1.0 K/uL Eosinophils # (Auto) 0.36 0.00-0.70 K/uL Basophils # (Auto) 0.05 0.00-0.20 K/uL Absolute Immature Granulocyte (auto 0.03 0-1 K/uL Nucleated Red Blood Cells 0.0 0.0-0.19 % Chemistry Labs: Test 03/22/25 05:18 03/22/25 04:17 03/20/25 15:51 Range/Units Whole Blood Glucose 163 H 70-110 MG/DL Sodium Level 141 136-145 mmol/L Potassium Level 4.8 3.5-5.1 mmol/L Chloride Level 108 101-111 mmol/L Carbon Dioxide Level 28 21-32 mmol/L Blood Urea Nitrogen 24 H 7-18 mg/dL Creatinine 0.5 0.5-1.0 mg/dL Glomerular Filtration Rate Calc 121 >90 mL/min Random Glucose 157 H 70-105 mg/dL Total Calcium 8.7 8.5-10.1 mg/dL Bedside Glucose Comment Notified Nurse Diagnostics / Radiology: [Copy/Paste Echos/Imaging Report here] Impression and Plan: [ DM History of coarctation of aorta s/p repair as an infant Lower extremity weakness due to cord compression] Plan: [ #History of coarctation of aorta s/p repair as an infant now with recurrence -CCTA absence of CAD, however, >75% reduction in diameter of coarctation of the aorta -Echo limited views of descending aorta, but was otherwise normal ->20 SBP drop in RUE compared to MALIA Cooper evaluated patient from an Interventional standpoint, and due to strong pulses and no radiofemoral delay or drop in lower extremity BP compared to Upper extremity BP, coarctation is not felt to be significant. Therefore, recommend further Neurological workup and therapy Jillian Leavitt MD] JILLIAN LEAVITT MD Mar 22, 2025 07:56
[2025-03-22] MEDS: NITROFURANTOIN MONOHYD/M-CRYST 100 MG CAPSULE PO SCH (08:44)
--- NOTE | 2025-03-22 14:03 | PN ---
[facility] PROGRESS NOTE Date of Service: Mar 22, 2025 Time of Service: 13:48 HISTORY OF PRESENT ILLNESS: 39-year-old female with past medical history insulin dependent type 1 diabetes mellitus, history of coarctation of aorta status post surgery as a child who presented the hospital secondary to shortness of breath with exertion, chest pain, lower extremity weakness. Patient states since January last year she has noted that she has been having progressive shortness of breath. Her shortness of breath is present with exertional mainly ambulation. She can take 20s steps before getting short of. She also gets mildly short of breath with daily activities including cooking. She complains of midsternal chest pain which radiates towards her back. She describes the pain as heartburn in nature. She currently does not have any active chest pain when she came to the hospital. She denied any upper extremity numbness, weakness. Additionally she has also noted that she is having progressive weakness of her lower extremity. She has a difficult time with ambulation. She does ambulate at home. She had sprained her right ankle around one year ago and has noted pain in the ankle. She had x- ray done in the ER and she was treated for sprain conservatively. She denies any previous history of hypertension. She went to see her primary mate ship Dr. Leavitt today where she was recommended to come to the hospital for further evaluation. She was sent as a direct admission. Furthermore she has a history of insulin dependent diabetes and currently takes Tresiba and Humalog at home. Patient's blood pressure on presentation was 167/72, heart rate was in the 90s, temperature was 99.0 SUBJECTIVE: 03/17/25: Patient was seen in room 220, along with her . Patient was alert, awake and oriented. Patient reports shortness of breath with exertion, weakness in her B/L lower extremities. Patient reports ankle pain in her right foot, attributes it to her ankle sprain which she had a few days ago. Patient reports recurrent buckling of her knee joints. Patient denies cramping in her b/l lower extremities. Patient denies any paresthesia in extremities. Patient denies any motor weakness in b/l upper extremities. Patient denied fever, chills, palpitations. Patient denies any current chest pain. 03/18/25: Patient was seen in room 220, along with her . Patient was alert, awake and oriented. Patient doesn't have any active complaints. Patient was informed by Dr. Leavitt that she has coarctation of aorta at the same previous site she got operated for during her childhood. Patient asked when will her scheduled MRI be done today. Patient denies cramping in her b/l lower extremities. Patient denies any paresthesia in extremities. Patient denies any motor weakness in b/l upper extremities. Patient denied fever, chills, palpitations. Patient denies any current chest pain. there was >20 SBP drop in right upper extremity compared to left upper extremity. 03/19/25: Patient was seen in room 220. Patient was alert, awake and oriented. Patient doesn't have any active complaints. Patient had concerns if its necessary to get the MRI done and conveyed that she didn't want to get her MRI done. Patient is waiting for her recommendations from Dr. Cooper on Friday for her coarctation of aorta. Patient denies cramping in her b/l lower extremities. Patient denies any paresthesia in extremities. Patient denies any motor weakness in b/l upper extremities. Patient denied fever, chills, palpitations. Patient denies any current chest pain. 03/20/25: Patient was seen and evaluated at bedside today. She is pending MRI lumbar spine as well as evaluation by Dr. Cooper, mate ship, tomorrow. Due to recent episodes of hypoglycemia, she was seen by endocrinology consult and her insulin was adjusted. At my time of evaluation, patient reports no weakness or cramps in the lower extremities and patient states that it is due to her not walking while being hospitalized. She is otherwise vitally stable with blood pressure 127/70. 03/21/25: Patient was seen and evaluated at bedside today. Patient underwent MRI today. Patient was consulted by Dr. Cooper and his impression was "It is highly likely that this patient's problems are neurologic in order." MRI of cervical spine show Multilevel degenerative changes with areas of cord compression and neuroforaminal stenosis. MRI of lumbar spine show Small disc bulges with multilevel facet hypertrophic changes. MRI of Thoracic spine was unremarkable. Patient blood pressure values in four extremities today were Left arm-128/83, Right arm-152/84, left leg-155/90, right leg-149/87. patient denies any other active complaints. Patient denies any motor weakness in b/l upper extremities. Patient denied fever, chills, palpitations. Patient denies any current chest pain. 03/22/25: Patient was seen and evaluated at bedside today. Patient mentioned that she has morning stiffness and b/l knee pain so we ordered to RA workup to rule out rheumatoid arthritis. Patient denies any other active complaints. Dr. Leavitt recommended that Dr Cooper evaluated patient from an Interventional standpoint, and due to strong pulses and no radiofemoral delay or drop in lower extremity BP compared to Upper extremity BP, coarctation is not felt to be significant. Therefore, recommend further Neurological workup and therapy. Pending neurosurgery consultation, will follow their recommendations. REVIEW OF SYSTEMS CONSTITUTIONAL: Denies fevers, chills, or night sweats. No unintentional weight loss reported. NEUROLOGICAL: Denies headache, amaurosis fugax, motor weakness, sensory deficit, vertigo/spinning sensation, gait abnormalities, or tremors. ENT: No hearing loss, otalgia, otorrhea, rhinitis, rhinorrhea, hoarseness, or sore throat. CARDIOVASCULAR: Positive for dyspnea on exertion, PULMONARY: Denies any shortness of breath, cough, phlegm/sputum, hemoptysis, pleuritic chest pain. SLEEP: Denies morning headaches, daytime somnolence or napping. Denies difficulty falling asleep, staying asleep, waking from sleep. Denies knowledge of snoring. GASTROINTESTINAL: Denies any type of dysphagia to either liquids or solids. Denies nausea, vomiting, pyrosis, early satiety, abdominal pain, diarrhea, constipation, or changes in stool consistency or caliber. Denies coffee-ground emesis, hematemesis, hematochezia, or melanotic stools. GENITOURINARY: Denies frequency, urgency, nocturia, hematuria or incontinence (Storage/Irritative symptoms.) Low urinary stream, straining to void, urinary intermittency or hesitancy, splitting of the voiding stream, terminal dribbling. ENDOCRINOLOGIC: Denies polyuria, polydipsia, polyphagia or heat/cold intolerances. HEMATOLOGIC: Denies thrombophilia/previous clots, or coagulopathy/bleeding disorders. ONCOLOGIC: Denies personal history of malignancy. DERMATOLOGIC: Denies rashes or pruritus. PSYCHIATRIC: Denies any suicidal or homicidal ideation. Denies hallucinations. EXTREMITIES: b/l lower extremity weakness PHYSICAL EXAM GENERAL APPEARANCE: The patient is awake, alert, and oriented, in no acute cardiopulmonary distress. NEUROLOGICAL: Cranial nerves II-XII grossly intact. Motor is 5/5 in bilateral upper and lower extremities proximal to distal. No sensory deficits. HEENT: Face is symmetric. Pupils are equal and reactive. Extraocular movements are intact. NECK: Supple. No JVD. No thyromegaly. No submental, submandibular, pre- /postauricular, occipital or supraclavicular lymphadenopathy. CHEST: Normal chest expansion. No Telemetry. LUNGS: Absence of any rales, rhonchi or any wheezing. CARDIOVASCULAR: Regular. S1 and S2 normal. No appreciable rubs, murmurs or gallops. ABDOMEN: Soft, nontender, and nondistended. There is no rebound, voluntary guarding, or rigidity. : Deferred. No Cope. EXTREMITIES: Patient's lower extremity he is thin. She does move her lower extremities without issue. Unable to dorsiflex her right ankle secondary to pain. motor strength in left lower extremity. SKIN: No skin breakdown. Vital Signs (last 8hr) Date Time Temp Pulse Resp B/P (MAP) Pulse Ox O2 Delivery O2 Flow Rate FiO2 03/22/25 12:16 99 Room Air* 0 21 03/22/25 12:00 97.9 91 19 123/69 99 Room Air 21 03/22/25 08:00 97.7 86 18 118/64 100 Room Air 21 LABS: Laboratory: Test 03/22/25 11:38 03/22/25 04:17 03/20/25 15:51 Range/Units Whole Blood Glucose 256 #H 70-110 MG/DL White Blood Count 9.8 4.8-10.8 K/uL Red Blood Count 3.72 L 4.00-5.50 MIL/uL Hemoglobin 11.2 L 12.0-16.0 g/dL Hematocrit 32.6 L 36-48 % Mean Corpuscular Volume 87.6 79-99 fL Mean Corpuscular Hemoglobin 30.1 27.0-33.0 pg Mean Corpuscular Hemoglobin Concent 34.4 32.0-36.0 g/dL Red Cell Distribution Width 12.4 11.0-15.5 % Platelet Count 358 130-400 K/uL Mean Platelet Volume 11.0 H 7.5-10.5 fL Immature Granulocyte % (Auto) 0.3 0-1 % Neutrophils (%) (Auto) 57.1 40.0-77.0 % Lymphocytes (%) (Auto) 29.4 21.0-51.0 % Monocytes (%) (Auto) 9.0 3.0-13.0 % Eosinophils (%) (Auto) 3.7 0.0-8.0 % Basophils (%) (Auto) 0.5 0.0-5.0 % Neutrophils # (Auto) 5.6 1.8-7.7 K/uL Lymphocytes # (Auto) 2.9 1.0-4.8 K/uL Monocytes # (Auto) 0.9 0.1-1.0 K/uL Eosinophils # (Auto) 0.36 0.00-0.70 K/uL Basophils # (Auto) 0.05 0.00-0.20 K/uL Absolute Immature Granulocyte (auto 0.03 0-1 K/uL Nucleated Red Blood Cells 0.0 0.0-0.19 % Sodium Level 141 136-145 mmol/L Potassium Level 4.8 3.5-5.1 mmol/L Chloride Level 108 101-111 mmol/L Carbon Dioxide Level 28 21-32 mmol/L Blood Urea Nitrogen 24 H 7-18 mg/dL Creatinine 0.5 0.5-1.0 mg/dL Glomerular Filtration Rate Calc 121 >90 mL/min Random Glucose 157 H 70-105 mg/dL Total Calcium 8.7 8.5-10.1 mg/dL Bedside Glucose Comment Notified Nurse Current Medications Medications (Trade) Dose Ordered Sig/Jamila Route PRN Reason Start Time Stop Time Status Last Admin Dose Admin Acetaminophen (TYLenol 500MG TAB) 500 mg Q6H PRN PO MILD PAIN (1-3) 03/16/25 15:00 04/15/25 14:59 03/21/25 20:50 500 MG Ceftriaxone Sodium (ROCEphine 1G INJ) 1 gm Q24H IVPB 03/18/25 12:30 03/22/25 07:29 DC 03/21/25 12:33 1 GM Dextrose (D50w) 50 ml AD PRN IV HYPOGLYCEMIA PROTOCOL 03/16/25 15:00 04/15/25 14:59 Famotidine (Pepcid 20mg Vial) 20 mg BID IV 03/16/25 21:00 04/15/25 20:59 03/22/25 08:44 20 MG Glucagon (Glucagon 1mg Kit) 1 mg AD PRN IM HYPOGLYCEMIA PROTOCOL 03/16/25 15:00 04/15/25 14:59 Insulin Glargine (LANtus 100 UNITS/ML 10 ML VIAL) 14 units DAILY SQ 03/17/25 09:00 03/20/25 07:17 DC 03/19/25 08:45 14 UNITS Insulin Glargine (LANtus 100 UNITS/ML 10 ML VIAL) 16 units DAILY SQ 03/20/25 09:00 04/19/25 08:59 03/22/25 08:51 16 UNITS Insulin Glargine (LANtus 100 UNITS/ML 10 ML VIAL) 20 units DAILY SQ 03/17/25 09:00 03/17/25 05:36 DC Insulin Human Regular (humuLIN R 100 UNIT/ML 3ML) 3 unit TIDAC SQ 03/18/25 07:30 03/18/25 12:14 DC 03/18/25 11:58 3 UNIT Insulin Human Regular (humuLIN R 100 UNIT/ML 3ML) 3 unit TIDAC SQ 03/20/25 07:30 04/19/25 07:29 03/22/25 11:49 3 UNIT Insulin Human Regular (humuLIN R 100 UNIT/ML 3ML) 4 unit TIDAC SQ 03/18/25 17:00 03/19/25 22:26 DC 03/19/25 12:17 4 UNIT Insulin Human Regular (humuLIN R 100 UNIT/ML 3ML) INSULIN SLIDING SCAL... ACHS SQ 03/16/25 16:30 04/15/25 16:29 03/22/25 11:49 4 UNIT Magnesium Sulfate 50 ml @ 0 mls/hr PROTOCOL PRN IV hypomagnesemia 03/16/25 15:00 04/15/25 14:59 Nitrofurantoin Macrocrystals (Macrobid) 100 mg BID PO 03/22/25 09:00 03/26/25 07:30 03/22/25 08:44 100 MG Ondansetron HCl (zoFRAN 4MG INJ) 4 mg Q6H PRN IVP NAUSEA/VOMITING 03/16/25 17:00 04/15/25 16:59 03/18/25 20:08 4 MG Potassium Chloride 100 ml @ 100 mls/hr AD PRN IV POTASSIUM PROTOCOL 03/16/25 15:00 04/15/25 14:59 Potassium Chloride (K-Dur/Klor-Con 20meq) 20 meq AD PRN PO POTASSIUM PROTOCOL 03/16/25 15:00 04/15/25 14:59 03/17/25 08:09 20 MEQ Potassium Chloride (KCl 10% Elixir 20meq/15ml) 20 meq AD PRN PO POTASSIUM PROTOCOL 03/16/25 15:00 04/15/25 14:59 DIAGNOSTICS / RADIOLOGY: [facility] [address] [place], [place] [id number] IMAGING REPORT Signed PATIENT: ANGELA BALLARD MR#: [id number] : 1985 SEX: F AGE: 39 LOCATION: 2DH ORDER 28 STATUS: ADM IN [facility] REPORT#: [id number] SERVICE 26 REASON: NO ORDERING PHYSICIAN: DICK CONSTANTINO MD PROCEDURE: C SPN WWO - MR SPINAL CANAL, CERV W/WO CON EXAM: MR Cervical Spine Without IV contrast. CLINICAL HISTORY: NO treatment plan pending MRI results inpatient. Thank you!! TECHNIQUE: Magnetic resonance images of the cervical spine without intravenous contrast in multiple planes. Series acquired: 2 - LOCALIZER - TR: 700.0 - TE: 79.9 - ET: 1.0 - Thk: 5.0 300 - SC:SAG T2 FRFSE - TR: 3465.0 - TE: 118.4 - ET: 27.0 - Thk: 3.0 400 - SC:SAG T1 FSE - TR: 453.0 - TE: 16.1 - ET: 4.0 - Thk: 3.0 500 - SC:SAG STIR - TR: 4352.0 - TE: 39.7 - ET: 13.0 - Thk: 3.0 600 - SC:AX T2 FRFSE - TR: 4817.0 - TE: 120.4 - ET: 27.0 - Thk: 3.0 2400 - SC:G+ SAG T1 FS - TR: 493.0 - TE: 16.1 - ET: 7.0 - Thk: 3.0 2500 - SC:G+ AX T1 FS - TR: 678.0 - TE: 18.5 - ET: 10.0 - Thk: 3.0 CONTRAST: None. Clariscan 11 cc. COMPARISON: None provided. Images with and without IV contrast FINDINGS: VERTEBRAE: No compressions are seen. No masses are seen. There is no infiltrative bone marrow disease. ALIGNMENT: Bony alignment is anatomic. SPINAL CORD/BRAIN: No abnormality is seen in the cord. No abnormal enhancement. No abnormality is seen in the visualized portions of the brain. FINDINGS BY LEVEL: C2-C3: The disc space height is maintained. There is adequate disc hydration. There is no bulge or herniation. No neural foraminal stenosis is seen. No spinal canal stenosis is seen. Facets are normal. C3-C4: The discs shows a protrusion 2 mm with bilateral facet and uncinate hypertrophy. Moderate left-sided neuroforaminal stenosis with bilateral facet hypertrophic changes. Mild cord compression seen. C4-C5: Disc protrusion is seen 2.7 mm with cord compression and moderate right-sided neuroforaminal stenosis. Bilateral facet hypertrophic changes are seen C5-C6: The disc is desiccated with a 3 mm disc protrusion causing cord compression. Bilateral facet and uncinate hypertrophy without neural foraminal stenosis. C6-C7: The disc space height is maintained. There is adequate disc hydration. There is no bulge or herniation. No neural foraminal stenosis is seen. No spinal canal stenosis is seen. Facets are normal. C7-T1: The disc space height is maintained. There is adequate disc hydration. There is no bulge or herniation. No neural foraminal stenosis is seen. No spinal canal stenosis is seen. Facets are normal. PARASPINAL SOFT TISSUES: No soft tissue abnormality is noted. IMPRESSION: Multilevel degenerative changes with areas of cord compression and neuroforaminal stenosis No acute cervical spinal abnormality. /[place] DICTATED BY: ERICA CROSS MD DATE: 03/21/251638 ELECTRONICALLY SIGNED BY: ERICA CROSS MD DATE: 03/21/251638 [address] [address] IMAGING REPORT Signed PATIENT: ANGELA BALLARD MR#: [id number] : 1985 SEX: F AGE: 39 LOCATION: 2DH ORDER 28 STATUS: ADM IN [facility] REPORT#: [id number] SERVICE 26 REASON: No ORDERING PHYSICIAN: DICK CONSTANTINO MD PROCEDURE: L SPN WWO - MR SPINAL CANAL, LUMB W/WO CON EXAM: MR Lumbar Spine Without Intravenous Contrast. CLINICAL HISTORY: TECHNIQUE: Magnetic resonance images of the lumbar spine without and with intravenous intravenous contrast in multiple planes. CONTRAST: Intravenous contrast COMPARISON: None provided. FINDINGS: VERTEBRAE: No acute fracture or focal osseous lesion. No abnormal enhancement. ALIGNMENT: Bony alignment is anatomic. SPINAL CORD AND CAUDA EQUINA: No abnormal signal or mass. FINDINGS BY LEVEL: L1-L2: No central canal or foraminal stenosis. L2-L3: No central canal or foraminal stenosis. There is an annular bulge 2.3 mm with bilateral facet hypertrophy. L3-L4: No central canal or foraminal stenosis. L4-L5: No central canal or foraminal stenosis. Bilateral facet hypertrophic changes are seen L5-S1: No central canal or foraminal stenosis. Bilateral facet hypertrophic changes are seen PARASPINAL SOFT TISSUES: Unremarkable. 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 IMPRESSION: 1. No evidence of metastatic disease. Small disc bulges with multilevel facet hypertrophic changes as described /[place] DICTATED BY: ERICA CROSS MD DATE: 03/21/251635 ELECTRONICALLY SIGNED BY: ERICA CROSS MD DATE: 03/21/251635 ASSESSMENT: Suspected coarctation of aorta status post repair as a child Progressive dyspnea on exertion. Differential secondary to coarctation of aorta versus CHF Lower extremity weakness Suspected rheumatoid arthritis Hypertension Insulin dependent diabetes mellitus chest pain PLAN: Progressive dyspnea on exertion. Differential secondary to coarctation of aorta versus CHF * Will monitor blood pressure in both arms and both lower extremity to assess for significant gradients * EKG ordered, which showed normal sinus rhythm without any abnormalities. * Troponin - 5, BNP- 41, * ECHO was ordered, results show LVEF of 50%, Moderate Left ventricular hypertrophy. * CTA was ordered which showed focal coarctation of aorta, 1.6 cm * Cardiology was consulted and CT Cardiac Angiography with contrast was ordered, results show absence of CAD, however, >75% reduction in diameter of coarctation of the aorta. Echo limited views of descending aorta, but was otherwise normal. * There was >20 SBP drop in right upper extremity compared to left upper extremity. * Blood pressure values in four extremities today(03/21/25) were Left arm- 128/83, Right arm-152/84, left leg-155/90, right leg-149/87. * CHF was ruled out. * Patient was consulted by Dr. Cooper, mate ship and his impression was "It is highly likely that this patient's problems are neurologic in order." * Dr. Leavitt recommended that Dr Cooper evaluated patient from an Interventional standpoint, and due to strong pulses and no radiofemoral delay or drop in lower extremity BP compared to Upper extremity BP, coarctation is not felt to be significant. Therefore, recommend further Neurological workup and therapy. * Chest X-ray showed borderline cardiomegaly. * Follow up with the ultrasound KACEY. Lower extremity weakness * b/l lower extremity weakness w/ decreased motor strength. * US B/L lower extremity Duplex scan was ordered, results were unremarkable. * Neurology was consulted, they recommended MRI of lumbar spine to evaluate for disc herniation and nerve compression. EMG neuroconduction study as outpatient to assess electrical activity from spine to legs and identify lower extremity nerve injuries. Primary care physician referral required for EMG test. * CT lumbar spine, CT Thoracic spine, CT head w/o contrast was ordered. CT lumbar spine, thoracic spine results were unremarkable. Ct head findings were unremarkable. * MRI of cervival, lumbar, thoracic spine was ordered. MRI of cervical spine show Multilevel degenerative changes with areas of cord compression and neuroforaminal stenosis. MRI of lumbar spine show Small disc bulges with multilevel facet hypertrophic changes. MRI of Thoracic spine was unremarkable . * Neurosurgery was consulted, will follow their recommendations. * CT Cardiac Angiography with contrast was ordered, results show absence of CAD, however, >75% reduction in diameter of coarctation of the aorta. * Vitamin B12 was ordered, results show 451. * Ankle X-ray of right foot was ordered, which was unremarkable Suspected rheumatoid arthritis * Patient complains of morning stiffness gets better over the day, bilateral knee pain. * Ordered RA factor, CCP antibody and AMY,awaiting results Suspected coarctation of aorta status post repair as a child * H/O coarctation of aorta s/p repair when she was 23 days old Insulin dependent diabetes mellitus * H/O type 1 DM. HbA1c of 6.5 * A consult was placed for endocrinology. * continue Lantus 14 units daily and adjust for fasting glucose. * decrease Regular insulin to 3 units three times before meals due to hypoglycemia. * Continue low dose sliding scale insulin. * follow on plasma renin, serum aldosterone, plasma fractionated metanephrines and normetanephrine. * Monitor glucose q x 6 hourly. * Continue carb consistent diet. * Keep glucose less than 180 mg/dl. * As per endocrinology recommendations, Aldosterone serum, renin, plasma metanephrines were ordered will follow with results. Chest pain * EKG ordered, which showed normal sinus rhythm without any abnormalities. * Troponin - 5, BNP- 41, * ECHO was ordered, results show LVEF of 50%, Moderate Left ventricular hypertrophy. * CTA was ordered which showed focal coarctation of aorta, 1.6 cm * Cardiology was consulted and CT Cardiac Angiography with contrast was ordered, results show absence of CAD, however, >75% reduction in diameter of coarctation of the aorta. Echo limited views of descending aorta, but was otherwise normal. * CHF was ruled out. * Chest X-ray showed borderline cardiomegaly. ATTESTATION BY PHYSICIAN I have seen and examined the patient. I reviewed the documentation, medical decision making, and treatment plan as noted by the resident physician above. I agree with the findings and plan of care. LISHA MARTINEZ MD, SHAJI MD Mar 22, 2025 14:03
--- NOTE | 2025-03-22 20:21 | PN ---
Endocrinology progress note DOS:03/22/25 subjective: Home diabetic regimen: tresiba 15 units daily and humalog 7 units qac before meals Hba1c 6.5% I saw this patient recently in the hospital and am cortisol was checked due to intermittent low blood pressure. am cortisol was normal 17.2, so there was no evidence of adrenal insufficiency. adrenal hormonal work up result is pending. cardiology is following for hx of coarctation and possible stent restenosis. MRI of upper and lower spine are pending. echo show Conclusion LVEF is 50%. Moderate concentric left ventricular hypertrophy. CT head, thoracic and lumbar spine was normal. Patient was seen and evaluated at bedside today. Patient underwent MRI today. Patient was seen by Dr. Cooper and his impression was "It is highly likely that this patient's problems are neurologic in order." MRI of cervical spine show Multilevel degenerative changes with areas of cord compression and neuroforaminal stenosis. MRI of lumbar spine show Small disc bulges with multilevel facet hypertrophic changes. MRI of Thoracic spine was unremarkable. REVIEW OF SYSTEMS CONSTITUTIONAL: Denies fevers, chills, or night sweats. No unintentional weight loss reported. NEUROLOGICAL: Denies headache, amaurosis fugax, motor weakness, sensory deficit, vertigo/spinning sensation, gait abnormalities, or tremors. ENT: No hearing loss, otalgia, otorrhea, rhinitis, rhinorrhea, hoarseness, or sore throat. CARDIOVASCULAR: Positive for dyspnea on exertion, PULMONARY: Denies any shortness of breath, cough, phlegm/sputum, hemoptysis, pleuritic chest pain. SLEEP: Denies morning headaches, daytime somnolence or napping. Denies difficulty falling asleep, staying asleep, waking from sleep. Denies knowledge of snoring. GASTROINTESTINAL: Denies any type of dysphagia to either liquids or solids. Denies nausea, vomiting, pyrosis, early satiety, abdominal pain, diarrhea, constipation, or changes in stool consistency or caliber. Denies coffee-ground emesis, hematemesis, hematochezia, or melanotic stools. GENITOURINARY: Denies frequency, urgency, nocturia, hematuria or incontinence (Storage/Irritative symptoms.) Low urinary stream, straining to void, urinary intermittency or hesitancy, splitting of the voiding stream, terminal dribbling. ENDOCRINOLOGIC: Denies polyuria, polydipsia, polyphagia or heat/cold intolerances. HEMATOLOGIC: Denies thrombophilia/previous clots, or coagulopathy/bleeding disorders. ONCOLOGIC: Denies personal history of malignancy. DERMATOLOGIC: Denies rashes or pruritus. PSYCHIATRIC: Denies any suicidal or homicidal ideation. Denies hallucinations. 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 - Emergency room visit in September for sprained right ankle after fall at home Surgical History - Retinal detachment surgery in 2018 - Coarctation of the aorta repair at 23 days old - Surgery for muscle tightening in stomach at 10 days old Medications and Supplements - Insulin for type one diabetes - Always taking since diagnosis at age 8 - Avastin eye injections in both eyes due to prolonged diabetes - Received in the past Social History - Occupation: Works at a [employer] job Coded Allergies: levofloxacin (Unverified Allergy, Unknown, NAUSEA/VOMITING, 03/16/25) ASSESSMENT: Type 1 Diabetes mellitus Home diabetic regimen: tresiba 15 units daily and humalog 7 units qac before meals Hba1c 6.5% Hypertension I saw this patient recently in the hospital and am cortisol was checked due to intermittent low blood pressure. am cortisol was normal 17.2, so there was no evidence of adrenal insufficiency. she now reports episodes of elevated BP, chest pain and SOB-improving now. my suspicion is low for hyperaldosteronism or pheochromocytoma and labs has been ordered.. Suspected coarctation of aorta status post repair as a child, cardiology is following and cardiac work up is in progress. Progressive dyspnea on exertion. Differential secondary to coarctation of aorta versus CHF Lower extremity weakness-pending mri of upper and lower extremities. chest pain - improved PLAN: continue Lantus 14 units daily and adjust for fasting glucose. continue Regular insulin 3 units three times before meals decrease low dose to very low dose sliding scale insulin. follow on plasma renin, serum aldosterone, plasma fractionated metanephrines and normetanephrines. Monitor glucose q x 6 hourly. Continue carb consistent diet. Keep glucose less than 180 mg/dl. Vitals/Labs Vital Signs Date Time Temp Pulse Resp B/P (MAP) Pulse Ox O2 Delivery O2 Flow Rate FiO2 03/22/25 20:19 98.2 97 18 127/75 99 Room Air 03/22/25 16:00 21 03/22/25 12:16 0 Laboratory Tests 03/22/25 04:17 Medications Current Medications Famotidine 20 mg BID IV Last administered on 03/22/25at 20:02; Start 03/16/25 at 21:00; Stop 04/15/25 at 20:59 Acetaminophen 500 mg Q6H PRN PO Last administered on 03/22/25at 20:05; Start 03/16/25 at 15:00; Stop 04/15/25 at 14:59 Insulin Human Regular INSULIN SLIDING SCAL... ACHS SQ Last administered on 03/22/25at 11:49; Start 03/16/25 at 16:30; Stop 04/15/25 at 16:29 Dextrose 50 ml AD PRN IV; Start 03/16/25 at 15:00; Stop 04/15/25 at 14:59 Glucagon 1 mg AD PRN IM; Start 03/16/25 at 15:00; Stop 04/15/25 at 14:59 Potassium Chloride 100 ml @ 100 mls/hr AD PRN IV; Start 03/16/25 at 15:00; Stop 04/15/25 at 14:59 Potassium Chloride 20 meq AD PRN PO; Start 03/16/25 at 15:00; Stop 04/15/25 at 14:59 Potassium Chloride 20 meq AD PRN PO Last administered on 03/17/25at 08:09; Start 03/16/25 at 15:00; Stop 04/15/25 at 14:59 Magnesium Sulfate 50 ml @ 0 mls/hr PROTOCOL PRN IV; Start 03/16/25 at 15:00; Stop 04/15/25 at 14:59 Ondansetron HCl 4 mg Q6H PRN IVP Last administered on 03/18/25at 20:08; Start 03/16/25 at 17:00; Stop 04/15/25 at 16:59 Iohexol 75 ml STK-MED ONCE IV; Start 03/16/25 at 16:55; Stop 03/16/25 at 16:55; Status DC Insulin Glargine 20 units DAILY SQ; Start 03/17/25 at 09:00; Stop 03/17/25 at 05:36; Status DC Insulin Glargine 14 units DAILY SQ Last administered on 03/19/25at 08:45; Start 03/17/25 at 09:00; Stop 03/20/25 at 07:17; Status DC Metoprolol Tartrate 50 mg ONCE ONCE PO Last administered on 03/17/25at 08:54; Start 03/17/25 at 08:30; Stop 03/17/25 at 08:31; Status DC Iohexol 35,000 mg STK-MED ONCE IV; Start 03/17/25 at 13:28; Stop 03/17/25 at 13:28; Status DC Metoprolol Tartrate 5 mg STK-MED ONCE IV; Start 03/17/25 at 13:44; Stop 03/17/25 at 13:44; Status DC Metoprolol Tartrate 5 mg STK-MED ONCE IV; Start 03/17/25 at 13:48; Stop 03/17/25 at 13:48; Status DC Insulin Human Regular 3 unit TIDAC SQ Last administered on 03/18/25at 11:58; Start 03/18/25 at 07:30; Stop 03/18/25 at 12:14; Status DC Ceftriaxone Sodium 1 gm Q24H IVPB Last administered on 03/21/25at 12:33; Start 03/18/25 at 12:30; Stop 03/22/25 at 07:29; Status DC Insulin Human Regular 4 unit TIDAC SQ Last administered on 03/19/25at 12:17; Start 03/18/25 at 17:00; Stop 03/19/25 at 22:26; Status DC Insulin Human Regular 3 unit TIDAC SQ Last administered on 03/22/25at 17:36; Start 03/20/25 at 07:30; Stop 04/19/25 at 07:29 Insulin Glargine 16 units DAILY SQ Last administered on 03/22/25at 08:51; Start 03/20/25 at 09:00; Stop 04/19/25 at 08:59 Gadoterate Meglumine 10 mmol STK-MED ONCE IV; Start 03/21/25 at 14:13; Stop 03/21/25 at 14:13; Status DC Nitrofurantoin Macrocrystals 100 mg BID PO Last administered on 03/22/25at 20:02; Start 03/22/25 at 09:00; Stop 03/26/25 at 07:30 Ergocalciferol 50,000 unit QWEEK PO; Start 03/29/25 at 09:00; Stop 04/28/25 at 08:59 LALO CORNEJO MD Mar 22, 2025 20:21
[2025-03-23] VITALS (9 sets, daily range): BP systolic 111–163; BP diastolic 61–81; PULSE 85–94; RESP 16–20; TEMP 97.2–98; O2SAT 97–100
[2025-03-23 04:58] LABS: IMMATURE GRANULOCYTE ABSOLUTE 0.01 K/uL (0-1); NUCLEATED RED BLOOD CELLS 0.0 % (0.0-0.19); PLATELET COUNT (AUTO) 349 K/uL (130-400); RED BLOOD CELL COUNT(AUTO) 3.75 MIL/uL (4.00-5.50); RED CELL DISTRIBUTION WIDTH 12.4 % (11.0-15.5); WHITE BLOOD COUNT (AUTO) 8.3 K/uL (4.8-10.8)
[2025-03-23 05:17] LABS: CREATININE 0.5 mg/dL (0.5-1.0); GLOMERULAR FILTR. RATE CALC 121.0 mL/min (>90); GLUCOSE,RANDOM 108.0 mg/dL (70-105); SODIUM SERUM 142.0 mmol/L (136-145); UREA NITROGEN, BLOOD 24.0 mg/dL (7-18)
--- NOTE | 2025-03-23 07:16 | PN ---
[facility] CARDIOLOGY PROGRESS NOTE Date Patient Seen: Mar 23, 2025 Time of Visit: 07:14 Interval History: [Continued leg weakness ] Physical Examination: GENERAL: [No acute distress.] HEAD: [Normal with no signs of head trauma.] EYES: [PERRLA, EOMI, conjunctiva and sclera normal.] ENT: [Hearing grossly intact, normal oropharynx.] NECK: [Supple without JVD. There is no tenderness, lymphadenopathy, or masses. No thyromegaly. Normal carotid upstrokes without bruits.] LUNGS: [Clear breath sounds bilaterally. There are right basilar rales one third of the way up the chest. No wheezes, or rhonchi.] HEART: [Normal rate and rhythm. Normal S1 and S2 without mumurs, gallop or rub.] VASC: [Peripheral pulses +2 bilaterally.] ABD: [Bowel sounds normal, soft, nontender, no masses, no organomegaly. No audible bruits.] : [Not examined] LYMPH: [No lymphadenopathy noted.] EXT: [No clubbing, cyanosis or edema.] SKIN: [No rashes or lesions noted.] NEURO: [Awake, alert, and oriented x3.] Laboratory: [ ] Hematology Labs: Test 03/23/25 04:32 Range/Units White Blood Count 8.3 4.8-10.8 K/uL Red Blood Count 3.75 L 4.00-5.50 MIL/uL Hemoglobin 11.3 L 12.0-16.0 g/dL Hematocrit 32.4 L 36-48 % Mean Corpuscular Volume 86.4 79-99 fL Mean Corpuscular Hemoglobin 30.1 27.0-33.0 pg Mean Corpuscular Hemoglobin Concent 34.9 32.0-36.0 g/dL Red Cell Distribution Width 12.4 11.0-15.5 % Platelet Count 349 130-400 K/uL Mean Platelet Volume 11.0 H 7.5-10.5 fL Immature Granulocyte % (Auto) 0.1 0-1 % Neutrophils (%) (Auto) 54.7 40.0-77.0 % Lymphocytes (%) (Auto) 30.2 21.0-51.0 % Monocytes (%) (Auto) 9.8 3.0-13.0 % Eosinophils (%) (Auto) 4.7 0.0-8.0 % Basophils (%) (Auto) 0.5 0.0-5.0 % Neutrophils # (Auto) 4.5 1.8-7.7 K/uL Lymphocytes # (Auto) 2.5 1.0-4.8 K/uL Monocytes # (Auto) 0.8 0.1-1.0 K/uL Eosinophils # (Auto) 0.39 0.00-0.70 K/uL Basophils # (Auto) 0.04 0.00-0.20 K/uL Absolute Immature Granulocyte (auto 0.01 0-1 K/uL Nucleated Red Blood Cells 0.0 0.0-0.19 % Chemistry Labs: Test 03/23/25 04:32 03/23/25 04:13 Range/Units Sodium Level 142 136-145 mmol/L Potassium Level 4.3 3.5-5.1 mmol/L Chloride Level 106 101-111 mmol/L Carbon Dioxide Level 29 21-32 mmol/L Blood Urea Nitrogen 24 H 7-18 mg/dL Creatinine 0.5 0.5-1.0 mg/dL Glomerular Filtration Rate Calc 121 >90 mL/min Random Glucose 108 H 70-105 mg/dL Total Calcium 8.4 L 8.5-10.1 mg/dL Whole Blood Glucose 95 70-110 MG/DL Diagnostics / Radiology: [Copy/Paste Echos/Imaging Report here] Impression and Plan: [ DM History of coarctation of aorta s/p repair as an infant Lower extremity weakness due to cord compression] Plan: [ #History of coarctation of aorta s/p repair as an now with recurrence -CCTA absence of CAD, however, >75% reduction in diameter of coarctation of the aorta -Echo limited views of descending aorta, but was otherwise normal ->20 SBP drop in RUE compared to LUE -Dr Cooper evaluated patient from an Interventional standpoint, and due to strong pulses and no radiofemoral delay or drop in lower extremity BP compared to Upper extremity BP, coarctation is not felt to be significant. Therefore, recommend further Neurological workup and therapy #Lower extremity weakness -MRI cervical spine mild cord compression, pending Dr Ainsley duke, explains upper extremity weakness but not lower extremity weakness -pending outpatient EMG studies -RA and lupus workup pending Jillian Leavitt MD] JILLIAN LEAVITT MD Mar 23, 2025 07:16
--- NOTE | 2025-03-23 13:43 | PN ---
[facility] PROGRESS NOTE Date of Service: Mar 23, 2025 Time of Service: 13:32 HISTORY OF PRESENT ILLNESS: 39-year-old female with past medical history insulin dependent type 1 diabetes mellitus, history of coarctation of aorta status post surgery as a child who presented the hospital secondary to shortness of breath with exertion, chest pain, lower extremity weakness. Patient states since January last year she has noted that she has been having progressive shortness of breath. Her shortness of breath is present with exertional mainly ambulation. She can take 20s steps before getting short of. She also gets mildly short of breath with daily activities including cooking. She complains of midsternal chest pain which radiates towards her back. She describes the pain as heartburn in nature. She currently does not have any active chest pain when she came to the hospital. She denied any upper extremity numbness, weakness. Additionally she has also noted that she is having progressive weakness of her lower extremity. She has a difficult time with ambulation. She does ambulate at home. She had sprained her right ankle around one year ago and has noted pain in the ankle. She had x- ray done in the ER and she was treated for sprain conservatively. She denies any previous history of hypertension. She went to see her primary clinical nurse educator Dr. Leavitt today where she was recommended to come to the hospital for further evaluation. She was sent as a direct admission. Furthermore she has a history of insulin dependent diabetes and currently takes Tresiba and Humalog at home. Patient's blood pressure on presentation was 167/72, heart rate was in the 90s, temperature was 99.0 SUBJECTIVE: 03/17/25: Patient was seen in room 220, along with her . Patient was alert, awake and oriented. Patient reports shortness of breath with exertion, weakness in her B/L lower extremities. Patient reports ankle pain in her right foot, attributes it to her ankle sprain which she had a few days ago. Patient reports recurrent buckling of her knee joints. Patient denies cramping in her b/l lower extremities. Patient denies any paresthesia in extremities. Patient denies any motor weakness in b/l upper extremities. Patient denied fever, chills, palpitations. Patient denies any current chest pain. 03/18/25: Patient was seen in room 220, along with her . Patient was alert, awake and oriented. Patient doesn't have any active complaints. Patient was informed by Dr. Leavitt that she has coarctation of aorta at the same previous site she got operated for during her childhood. Patient asked when will her scheduled MRI be done today. Patient denies cramping in her b/l lower extremities. Patient denies any paresthesia in extremities. Patient denies any motor weakness in b/l upper extremities. Patient denied fever, chills, palpitations. Patient denies any current chest pain. there was >20 SBP drop in right upper extremity compared to left upper extremity. 03/19/25: Patient was seen in room 220. Patient was alert, awake and oriented. Patient doesn't have any active complaints. Patient had concerns if its necessary to get the MRI done and conveyed that she didn't want to get her MRI done. Patient is waiting for her recommendations from Dr. Cooper on Friday for her coarctation of aorta. Patient denies cramping in her b/l lower extremities. Patient denies any paresthesia in extremities. Patient denies any motor weakness in b/l upper extremities. Patient denied fever, chills, palpitations. Patient denies any current chest pain. 03/20/25: Patient was seen and evaluated at bedside today. She is pending MRI lumbar spine as well as evaluation by Dr. Cooper, clinical nurse educator, tomorrow. Due to recent episodes of hypoglycemia, she was seen by endocrinology consult and her insulin was adjusted. At my time of evaluation, patient reports no weakness or cramps in the lower extremities and patient states that it is due to her not walking while being hospitalized. She is otherwise vitally stable with blood pressure 127/70. 03/21/25: Patient was seen and evaluated at bedside today. Patient underwent MRI today. Patient was consulted by Dr. Cooper and his impression was "It is highly likely that this patient's problems are neurologic in order." MRI of cervical spine show Multilevel degenerative changes with areas of cord compression and neuroforaminal stenosis. MRI of lumbar spine show Small disc bulges with multilevel facet hypertrophic changes. MRI of Thoracic spine was unremarkable. Patient blood pressure values in four extremities today were Left arm-128/83, Right arm-152/84, left leg-155/90, right leg-149/87. patient denies any other active complaints. Patient denies any motor weakness in b/l upper extremities. Patient denied fever, chills, palpitations. Patient denies any current chest pain. 03/22/25: Patient was seen and evaluated at bedside today. Patient mentioned that she has morning stiffness and b/l knee pain so we ordered to RA workup to rule out rheumatoid arthritis. Patient denies any other active complaints. Dr. Leavitt recommended that Dr Cooper evaluated patient from an Interventional standpoint, and due to strong pulses and no radiofemoral delay or drop in lower extremity BP compared to Upper extremity BP, coarctation is not felt to be significant. Therefore, recommend further Neurological workup and therapy. Pending neurosurgery consultation, will follow their recommendations. 03/23/25: Patient was seen and evaluated in room 304. Patient reports feeling shock like paraesthesia on her left upper arm and neck stiffness. Patient reports that she slept more than usual last night. Patient is pending for neurosurgery consult today by Dr. Friedman, will follow his recommendations. Vitamin B12- 451. Patient denies any motor weakness in b/l upper extremities. Patient denied fever, chills, palpitations. Patient denies any current chest pain. REVIEW OF SYSTEMS CONSTITUTIONAL: Denies fevers, chills, or night sweats. No unintentional weight loss reported. NEUROLOGICAL: Denies headache, amaurosis fugax, motor weakness, sensory deficit, vertigo/spinning sensation, gait abnormalities, or tremors. ENT: No hearing loss, otalgia, otorrhea, rhinitis, rhinorrhea, hoarseness, or sore throat. CARDIOVASCULAR: Positive for dyspnea on exertion, PULMONARY: Denies any shortness of breath, cough, phlegm/sputum, hemoptysis, pleuritic chest pain. SLEEP: Denies morning headaches, daytime somnolence or napping. Denies difficulty falling asleep, staying asleep, waking from sleep. Denies knowledge of snoring. GASTROINTESTINAL: Denies any type of dysphagia to either liquids or solids. Denies nausea, vomiting, pyrosis, early satiety, abdominal pain, diarrhea, constipation, or changes in stool consistency or caliber. Denies coffee-ground emesis, hematemesis, hematochezia, or melanotic stools. GENITOURINARY: Denies frequency, urgency, nocturia, hematuria or incontinence (Storage/Irritative symptoms.) Low urinary stream, straining to void, urinary intermittency or hesitancy, splitting of the voiding stream, terminal dribbling. ENDOCRINOLOGIC: Denies polyuria, polydipsia, polyphagia or heat/cold intolerances. HEMATOLOGIC: Denies thrombophilia/previous clots, or coagulopathy/bleeding disorders. ONCOLOGIC: Denies personal history of malignancy. DERMATOLOGIC: Denies rashes or pruritus. PSYCHIATRIC: Denies any suicidal or homicidal ideation. Denies hallucinations. EXTREMITIES: b/l lower extremity weakness PHYSICAL EXAM GENERAL APPEARANCE: The patient is awake, alert, and oriented, in no acute cardiopulmonary distress. NEUROLOGICAL: Cranial nerves II-XII grossly intact. Motor is 5/5 in bilateral upper and lower extremities proximal to distal. No sensory deficits. HEENT: Face is symmetric. Pupils are equal and reactive. Extraocular movements are intact. NECK: Supple. No JVD. No thyromegaly. No submental, submandibular, pre- /postauricular, occipital or supraclavicular lymphadenopathy. CHEST: Normal chest expansion. No Telemetry. LUNGS: Absence of any rales, rhonchi or any wheezing. CARDIOVASCULAR: Regular. S1 and S2 normal. No appreciable rubs, murmurs or gallops. ABDOMEN: Soft, nontender, and nondistended. There is no rebound, voluntary guarding, or rigidity. : Deferred. No Cope. EXTREMITIES: Patient's lower extremity he is thin. She does move her lower extremities without issue. Unable to dorsiflex her right ankle secondary to pain. motor strength in left lower extremity. SKIN: No skin breakdown. Vital Signs (last 8hr) Date Time Temp Pulse Resp B/P (MAP) Pulse Ox O2 Delivery O2 Flow Rate FiO2 03/23/25 12:00 97.9 94 18 156/81 100 Room Air 21 03/23/25 08:42 100 Room Air* 0 21 03/23/25 08:00 97.9 92 18 140/81 100 Room Air 21 LABS: Laboratory: Test 03/23/25 11:03 03/23/25 04:32 Range/Units Whole Blood Glucose 166 #H 70-110 MG/DL White Blood Count 8.3 4.8-10.8 K/uL Red Blood Count 3.75 L 4.00-5.50 MIL/uL Hemoglobin 11.3 L 12.0-16.0 g/dL Hematocrit 32.4 L 36-48 % Mean Corpuscular Volume 86.4 79-99 fL Mean Corpuscular Hemoglobin 30.1 27.0-33.0 pg Mean Corpuscular Hemoglobin Concent 34.9 32.0-36.0 g/dL Red Cell Distribution Width 12.4 11.0-15.5 % Platelet Count 349 130-400 K/uL Mean Platelet Volume 11.0 H 7.5-10.5 fL Immature Granulocyte % (Auto) 0.1 0-1 % Neutrophils (%) (Auto) 54.7 40.0-77.0 % Lymphocytes (%) (Auto) 30.2 21.0-51.0 % Monocytes (%) (Auto) 9.8 3.0-13.0 % Eosinophils (%) (Auto) 4.7 0.0-8.0 % Basophils (%) (Auto) 0.5 0.0-5.0 % Neutrophils # (Auto) 4.5 1.8-7.7 K/uL Lymphocytes # (Auto) 2.5 1.0-4.8 K/uL Monocytes # (Auto) 0.8 0.1-1.0 K/uL Eosinophils # (Auto) 0.39 0.00-0.70 K/uL Basophils # (Auto) 0.04 0.00-0.20 K/uL Absolute Immature Granulocyte (auto 0.01 0-1 K/uL Nucleated Red Blood Cells 0.0 0.0-0.19 % Sodium Level 142 136-145 mmol/L Potassium Level 4.3 3.5-5.1 mmol/L Chloride Level 106 101-111 mmol/L Carbon Dioxide Level 29 21-32 mmol/L Blood Urea Nitrogen 24 H 7-18 mg/dL Creatinine 0.5 0.5-1.0 mg/dL Glomerular Filtration Rate Calc 121 >90 mL/min Random Glucose 108 H 70-105 mg/dL Total Calcium 8.4 L 8.5-10.1 mg/dL Current Medications Medications (Trade) Dose Ordered Sig/Jamila Route PRN Reason Start Time Stop Time Status Last Admin Dose Admin Acetaminophen (TYLenol 500MG TAB) 500 mg Q6H PRN PO MILD PAIN (1-3) 03/16/25 15:00 04/15/25 14:59 03/22/25 20:05 500 MG Ceftriaxone Sodium (ROCEphine 1G INJ) 1 gm Q24H IVPB 03/18/25 12:30 03/22/25 07:29 DC 03/21/25 12:33 1 GM Dextrose (D50w) 50 ml AD PRN IV HYPOGLYCEMIA PROTOCOL 03/16/25 15:00 04/15/25 14:59 Ergocalciferol (Drisdol) 50,000 unit QWEEK PO 03/29/25 09:00 04/28/25 08:59 Famotidine (Pepcid 20mg Vial) 20 mg BID IV 03/16/25 21:00 04/15/25 20:59 03/23/25 08:42 20 MG Glucagon (Glucagon 1mg Kit) 1 mg AD PRN IM HYPOGLYCEMIA PROTOCOL 03/16/25 15:00 04/15/25 14:59 Insulin Glargine (LANtus 100 UNITS/ML 10 ML VIAL) 14 units DAILY SQ 03/17/25 09:00 03/20/25 07:17 DC 03/19/25 08:45 14 UNITS Insulin Glargine (LANtus 100 UNITS/ML 10 ML VIAL) 16 units DAILY SQ 03/20/25 09:00 04/19/25 08:59 03/23/25 08:48 16 UNITS Insulin Glargine (LANtus 100 UNITS/ML 10 ML VIAL) 20 units DAILY SQ 03/17/25 09:00 03/17/25 05:36 DC Insulin Human Regular (humuLIN R 100 UNIT/ML 3ML) 3 unit TIDAC SQ 03/18/25 07:30 03/18/25 12:14 DC 03/18/25 11:58 3 UNIT Insulin Human Regular (humuLIN R 100 UNIT/ML 3ML) 3 unit TIDAC SQ 03/20/25 07:30 04/19/25 07:29 03/23/25 11:36 3 UNIT Insulin Human Regular (humuLIN R 100 UNIT/ML 3ML) 4 unit TIDAC SQ 03/18/25 17:00 03/19/25 22:26 DC 03/19/25 12:17 4 UNIT Insulin Human Regular (humuLIN R 100 UNIT/ML 3ML) INSULIN SLIDING SCAL... ACHS SQ 03/16/25 16:30 04/15/25 16:29 03/22/25 11:49 4 UNIT Magnesium Sulfate 50 ml @ 0 mls/hr PROTOCOL PRN IV hypomagnesemia 03/16/25 15:00 04/15/25 14:59 Nitrofurantoin Macrocrystals (Macrobid) 100 mg BID PO 03/22/25 09:00 03/26/25 07:30 03/23/25 08:42 100 MG Ondansetron HCl (zoFRAN 4MG INJ) 4 mg Q6H PRN IVP NAUSEA/VOMITING 03/16/25 17:00 04/15/25 16:59 03/18/25 20:08 4 MG Potassium Chloride 100 ml @ 100 mls/hr AD PRN IV POTASSIUM PROTOCOL 03/16/25 15:00 04/15/25 14:59 Potassium Chloride (K-Dur/Klor-Con 20meq) 20 meq AD PRN PO POTASSIUM PROTOCOL 03/16/25 15:00 04/15/25 14:59 03/17/25 08:09 20 MEQ Potassium Chloride (KCl 10% Elixir 20meq/15ml) 20 meq AD PRN PO POTASSIUM PROTOCOL 03/16/25 15:00 04/15/25 14:59 DIAGNOSTICS / RADIOLOGY: [place] [address] IMAGING REPORT Signed PATIENT: ANGELA BALLARD MR#: [id number] : 1985 SEX: F AGE: 39 LOCATION: 2DH ORDER 28 STATUS: ADM IN REPORT#: [id number] SERVICE 26 REASON: LE weakness ORDERING PHYSICIAN: DICK CONSTANTINO MD PROCEDURE: TH SPN WWO - MR SPINAL CANAL, THORACIC WWO EXAM: MR Thoracic Spine with and with and without Intravenous Contrast. CLINICAL HISTORY: LE weakness treatment plan pending MRI results inpatient. Thank you!! TECHNIQUE: Magnetic resonance images of the thoracic spine with and without intravenous contrast in multiple planes. Series acquired: 8 - COR T2 LOC SSFSE - TR: 729.6 - TE: 64.7 - ET: 1.0 - Thk: 5.0 14 - SAG T2 FRFSE - TR: 3216.0 - TE: 121.4 - ET: 21.0 - Thk: 4.0 15 - SAG T1 FSE (FS) - TR: 513.0 - TE: 17.2 - ET: 7.0 - Thk: 4.0 16 - SAG STIR - TR: 4817.0 - TE: 37.8 - ET: 17.0 - Thk: 4.0 17 - AX T2 FRFSE - TR: 5393.0 - TE: 113.8 - ET: 15.0 - Thk: 4.0 26 - G+SAG T1 FSE - TR: 511.0 - TE: 17.1 - ET: 7.0 - Thk: 4.0 27 - G+ AX T1 - TR: 688.0 - TE: 10.4 - ET: 9.0 - Thk: 4.0 1000 - PASTED IMAGES - TE: 105.4 - ET: 21.0 - Thk: 5.0 CONTRAST: Intravenous COMPARISON: None provided. FINDINGS: SPINAL CORD: Normal cord signal and contour. No abnormal enhancement was seen VERTEBRAE: No acute fracture or aggressive appearing osseous lesion. ALIGNMENT: Bony alignment is anatomic. DEGENERATIVE CHANGES: No significant disc disease. No spinal canal or foraminal stenosis. PARASPINAL SOFT TISSUES: Unremarkable. IMPRESSION: 1. No acute thoracic spine findings. /[place] DICTATED BY: ERICA CROSS MD DATE: 03/21/251650 ELECTRONICALLY SIGNED BY: ERICA CROSS MD DATE: 03/21/251650 DIAGNOSTICS / RADIOLOGY: [address] [place] [address] IMAGING REPORT Signed PATIENT: ANGELA BALLARD MR#: [id number] : 1985 SEX: F AGE: 39 LOCATION: 2DH ORDER 28 STATUS: ADM IN REPORT#: [id number] SERVICE 26 REASON: LE weakness ORDERING PHYSICIAN: DICK CONSTANTINO MD PROCEDURE: SPN WWO - MR SPINAL CANAL, THORACIC WWO EXAM: MR Thoracic Spine with and with and without Intravenous Contrast. CLINICAL HISTORY: LE weakness treatment plan pending MRI results inpatient. Thank you!! TECHNIQUE: Magnetic resonance images of the thoracic spine with and without intravenous contrast in multiple planes. Series acquired: 8 - COR T2 LOC SSFSE - TR: 729.6 - TE: 64.7 - ET: 1.0 - Thk: 5.0 14 - SAG T2 FRFSE - TR: 3216.0 - TE: 121.4 - ET: 21.0 - Thk: 4.0 15 - SAG T1 FSE (FS) - TR: 513.0 - TE: 17.2 - ET: 7.0 - Thk: 4.0 16 - SAG STIR - TR: 4817.0 - TE: 37.8 - ET: 17.0 - Thk: 4.0 17 - AX T2 FRFSE - TR: 5393.0 - TE: 113.8 - ET: 15.0 - Thk: 4.0 26 - G+SAG T1 FSE - TR: 511.0 - TE: 17.1 - ET: 7.0 - Thk: 4.0 27 - G+ AX T1 - TR: 688.0 - TE: 10.4 - ET: 9.0 - Thk: 4.0 1000 - PASTED IMAGES - TE: 105.4 - ET: 21.0 - Thk: 5.0 CONTRAST: Intravenous COMPARISON: None provided. FINDINGS: SPINAL CORD: Normal cord signal and contour. No abnormal enhancement was seen VERTEBRAE: No acute fracture or aggressive appearing osseous lesion. ALIGNMENT: Bony alignment is anatomic. DEGENERATIVE CHANGES: No significant disc disease. No spinal canal or foraminal stenosis. PARASPINAL SOFT TISSUES: Unremarkable. IMPRESSION: 1. No acute thoracic spine findings. /[place] DICTATED BY: ERICA CROSS MD DATE: 03/21/251650 ELECTRONICALLY SIGNED BY: ERICA CROSS MD DATE: 03/21/251650 [place] [id number] IMAGING REPORT Signed PATIENT: ANGELA BALLARD MR#: [id number] : 1985 SEX: F AGE: 39 LOCATION: 2DH ORDER 28 STATUS: ADM IN [facility] REPORT#: [id number] SERVICE 26 REASON: NO ORDERING PHYSICIAN: DICK CONSTANTINO MD PROCEDURE: C SPN WWO - MR SPINAL CANAL, CERV W/WO CON EXAM: MR Cervical Spine Without IV contrast. CLINICAL HISTORY: NO treatment plan pending MRI results inpatient. Thank you!! TECHNIQUE: Magnetic resonance images of the cervical spine without intravenous contrast in multiple planes. Series acquired: 2 - LOCALIZER - TR: 700.0 - TE: 79.9 - ET: 1.0 - Thk: 5.0 300 - SC:SAG T2 FRFSE - TR: 3465.0 - TE: 118.4 - ET: 27.0 - Thk: 3.0 400 - SC:SAG T1 FSE - TR: 453.0 - TE: 16.1 - ET: 4.0 - Thk: 3.0 500 - SC:SAG STIR - TR: 4352.0 - TE: 39.7 - ET: 13.0 - Thk: 3.0 600 - SC:AX T2 FRFSE - TR: 4817.0 - TE: 120.4 - ET: 27.0 - Thk: 3.0 2400 - SC:G+ SAG T1 FS - TR: 493.0 - TE: 16.1 - ET: 7.0 - Thk: 3.0 2500 - SC:G+ AX T1 FS - TR: 678.0 - TE: 18.5 - ET: 10.0 - Thk: 3.0 CONTRAST: None. Clariscan 11 cc. COMPARISON: None provided. Images with and without IV contrast FINDINGS: VERTEBRAE: No compressions are seen. No masses are seen. There is no infiltrative bone marrow disease. ALIGNMENT: Bony alignment is anatomic. SPINAL CORD/BRAIN: No abnormality is seen in the cord. No abnormal enhancement. No abnormality is seen in the visualized portions of the brain. FINDINGS BY LEVEL: C2-C3: The disc space height is maintained. There is adequate disc hydration. There is no bulge or herniation. No neural foraminal stenosis is seen. No spinal canal stenosis is seen. Facets are normal. C3-C4: The discs shows a protrusion 2 mm with bilateral facet and uncinate hypertrophy. Moderate left-sided neuroforaminal stenosis with bilateral facet hypertrophic changes. Mild cord compression seen. C4-C5: Disc protrusion is seen 2.7 mm with cord compression and moderate right-sided neuroforaminal stenosis. Bilateral facet hypertrophic changes are seen C5-C6: The disc is desiccated with a 3 mm disc protrusion causing cord compression. Bilateral facet and uncinate hypertrophy without neural foraminal stenosis. C6-C7: The disc space height is maintained. There is adequate disc hydration. There is no bulge or herniation. No neural foraminal stenosis is seen. No spinal canal stenosis is seen. Facets are normal. C7-T1: The disc space height is maintained. There is adequate disc hydration. There is no bulge or herniation. No neural foraminal stenosis is seen. No spinal canal stenosis is seen. Facets are normal. PARASPINAL SOFT TISSUES: No soft tissue abnormality is noted. IMPRESSION: Multilevel degenerative changes with areas of cord compression and neuroforaminal stenosis No acute cervical spinal abnormality. /[place] DICTATED BY: ERICA CROSS MD DATE: 03/21/251638 ELECTRONICALLY SIGNED BY: ERICA CROSS MD DATE: 03/21/251638 ASSESSMENT: Suspected coarctation of aorta status post repair as a child Progressive dyspnea on exertion. Differential secondary to coarctation of aorta versus CHF Lower extremity weakness Suspected rheumatoid arthritis Hypertension Insulin dependent diabetes mellitus chest pain PLAN: Progressive dyspnea on exertion. Differential secondary to coarctation of aorta versus CHF * Will monitor blood pressure in both arms and both lower extremity to assess for significant gradients * EKG ordered, which showed normal sinus rhythm without any abnormalities. * Troponin - 5, BNP- 41, * ECHO was ordered, results show LVEF of 50%, Moderate Left ventricular hypertr ophy. * CTA was ordered which showed focal coarctation of aorta, 1.6 cm * Cardiology was consulted and CT Cardiac Angiography with contrast was ordered, results show absence of CAD, however, >75% reduction in diameter of coa rctation of the aorta. Echo limited views of descending aorta, but was otherwise normal. * There was >20 SBP drop in right upper extremity compared to left upper extremity. * Blood pressure values in four extremities today(03/21/25) were Left arm- 128/83, Right arm-152/84, left leg-155/90, right leg-149/87. * CHF was ruled out. * Patient was consulted by Dr. Cooper, clinical nurse educator and his impression was "It is highly likely that this patient's problems are neurologic in order." * Dr. Leavitt recommended that Dr Cooper evaluated patient from an Interventional standpoint, and due to strong pulses and no radiofemoral delay or drop in lower extremity BP compared to Upper extremity BP, coarctation is not felt to be significant. Therefore, recommend further Neurological workup and therapy. * Chest X-ray showed borderline cardiomegaly. * Follow up with the ultrasound KACEY. Lower extremity weakness * b/l lower extremity weakness w/ decreased motor strength. * US B/L lower extremity Duplex scan was ordered, results were unremarkable. * Neurology was consulted, they recommended MRI of lumbar spine to evaluate for disc herniation and nerve compression. EMG neuroconduction study as outpatient to assess electrical activity from spine to legs and identify lower extremity nerve injuries. Primary care physician referral required for EMG test. * CT lumbar spine, CT Thoracic spine, CT head w/o contrast was ordered. CT lumbar spine, thoracic spine results were unremarkable. Ct head findings were unremarkable. * MRI of cervival, lumbar, thoracic spine was ordered. MRI of cervical spine show Multilevel degenerative changes with areas of cord compression and neuroforaminal stenosis. MRI of lumbar spine show Small disc bulges with multilevel facet hypertrophic changes. MRI of Thoracic spine was unremarkable . * Awaiting Neurosurgery consultation by Dr. Friedman, will follow his recommendations. * CT Cardiac Angiography with contrast was ordered, results show absence of CAD, however, >75% reduction in diameter of coarctation of the aorta. * Vitamin B12 was ordered, results show 451. * Ankle X-ray of right foot was ordered, which was unremarkable Suspected rheumatoid arthritis * Patient complains of morning stiffness gets better over the day, bilateral knee pain. * Ordered RA factor, CCP antibody and AMY,awaiting results Suspected coarctation of aorta status post repair as a child * H/O coarctation of aorta s/p repair when she was 23 days old Insulin dependent diabetes mellitus * H/O type 1 DM. HbA1c of 6.5 * A consult was placed for endocrinology. * continue Lantus 14 units daily and adjust for fasting glucose. * decrease Regular insulin to 3 units three times before meals due to hypoglycemia. * Continue low dose sliding scale insulin. * follow on plasma renin, serum aldosterone, plasma fractionated metanephrines and normetanephrine. * Monitor glucose q x 6 hourly. * Continue carb consistent diet. * Keep glucose less than 180 mg/dl. * As per endocrinology recommendations, Aldosterone serum, renin, plasma metanephrines were ordered will follow with results. Plasma metanephrines - <25.0, metanephrines - 28.5 Chest pain * EKG ordered, which showed normal sinus rhythm without any abnormalities. * Troponin - 5, BNP- 41, * ECHO was ordered, results show LVEF of 50%, Moderate Left ventricular hypertrophy. * CTA was ordered which showed focal coarctation of aorta, 1.6 cm * Cardiology was consulted and CT Cardiac Angiography with contrast was ordered, results show absence of CAD, however, >75% reduction in diameter of coarctation of the aorta. Echo limited views of descending aorta, but was otherwise normal. * CHF was ruled out. * Chest X-ray showed borderline cardiomegaly. ATTESTATION BY PHYSICIAN I have seen and examined the patient. I reviewed the documentation, medical decision making, and treatment plan as noted by the resident physician above. I agree with the findings and plan of care. LISHA MARTINEZ MD, SHAJI MD Mar 23, 2025 13:43
--- NOTE | 2025-03-23 21:19 | PN ---
Endocrinology progress note DOS:03/23/25 subjective: Home diabetic regimen: tresiba 15 units daily and humalog 7 units qac before meals Hba1c 6.5% I saw this patient recently in the hospital and am cortisol was checked due to intermittent low blood pressure. am cortisol was normal 17.2, so there was no evidence of adrenal insufficiency. adrenal hormonal work up result is pending. cardiology is following for hx of coarctation and possible stent restenosis. echo show Conclusion LVEF is 50%. Moderate concentric left ventricular hypertrophy. CT head, thoracic and lumbar spine was normal. Patient was seen and evaluated at bedside today. Patient underwent MRI today. Patient was seen by Dr. Cooper and his impression was "It is highly likely that this patient's problems are neurologic in order." MRI of cervical spine show Multilevel degenerative changes with areas of cord compression and neuroforaminal stenosis. MRI of lumbar spine show Small disc bulges with multilevel facet hypertrophic changes. MRI of Thoracic spine was unremarkable. REVIEW OF SYSTEMS CONSTITUTIONAL: Denies fevers, chills, or night sweats. No unintentional weight loss reported. NEUROLOGICAL: Denies headache, amaurosis fugax, motor weakness, sensory deficit, vertigo/spinning sensation, gait abnormalities, or tremors. ENT: No hearing loss, otalgia, otorrhea, rhinitis, rhinorrhea, hoarseness, or sore throat. CARDIOVASCULAR: Positive for dyspnea on exertion, PULMONARY: Denies any shortness of breath, cough, phlegm/sputum, hemoptysis, pleuritic chest pain. SLEEP: Denies morning headaches, daytime somnolence or napping. Denies difficulty falling asleep, staying asleep, waking from sleep. Denies knowledge of snoring. GASTROINTESTINAL: Denies any type of dysphagia to either liquids or solids. Denies nausea, vomiting, pyrosis, early satiety, abdominal pain, diarrhea, constipation, or changes in stool consistency or caliber. Denies coffee-ground emesis, hematemesis, hematochezia, or melanotic stools. GENITOURINARY: Denies frequency, urgency, nocturia, hematuria or incontinence (Storage/Irritative symptoms.) Low urinary stream, straining to void, urinary intermittency or hesitancy, splitting of the voiding stream, terminal dribbling. ENDOCRINOLOGIC: Denies polyuria, polydipsia, polyphagia or heat/cold intolerances. HEMATOLOGIC: Denies thrombophilia/previous clots, or coagulopathy/bleeding disorders. ONCOLOGIC: Denies personal history of malignancy. DERMATOLOGIC: Denies rashes or pruritus. PSYCHIATRIC: Denies any suicidal or homicidal ideation. Denies hallucinations. 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 - Emergency room visit in September for sprained right ankle after fall at home Surgical History - Retinal detachment surgery in 2018 - Coarctation of the aorta repair at 23 days old - Surgery for muscle tightening in stomach at 10 days old Medications and Supplements - Insulin for type one diabetes - Always taking since diagnosis at age 8 - Avastin eye injections in both eyes due to prolonged diabetes - Received in the past Social History - Occupation: Works at a [employer] job Coded Allergies: levofloxacin (Unverified Allergy, Unknown, NAUSEA/VOMITING, 03/16/25) ASSESSMENT: Type 1 Diabetes mellitus Home diabetic regimen: tresiba 15 units daily and humalog 7 units qac before meals Hba1c 6.5% Hypertension I saw this patient recently in the hospital and am cortisol was checked due to intermittent low blood pressure. am cortisol was normal 17.2, so there was no evidence of adrenal insufficiency. she now reports episodes of elevated BP, chest pain and SOB-improving now. my suspicion is low for hyperaldosteronism. No evidence of pheochromocytoma as metanephrines and normetanephrines are normal. Suspected coarctation of aorta status post repair as a child, cardiology is following and no evidence of coarctation stenosis. Progressive dyspnea on exertion. Lower extremity weakness- mri of upper and lower extremities show abnormal findings as given above.. chest pain - improved PLAN: continue Lantus 14 units daily and adjust for fasting glucose. continue Regular insulin 3 units three times before meals decrease low dose to very low dose sliding scale insulin. follow on plasma renin, serum aldosterone, plasma fractionated metanephrines and normetanephrines. Monitor glucose q x 6 hourly. neurosurgery recommendations are pending. Continue carb consistent diet. Keep glucose less than 180 mg/dl. Vitals/Labs Vital Signs Date Time Temp Pulse Resp B/P (MAP) Pulse Ox O2 Delivery O2 Flow Rate FiO2 03/23/25 20:00 98.1 94 16 159/78 97 Room Air 03/23/25 16:00 21 03/23/25 08:42 0 Laboratory Tests 03/23/25 04:32 Medications Current Medications Famotidine 20 mg BID IV Last administered on 03/23/25at 21:09; Start 03/16/25 at 21:00; Stop 04/15/25 at 20:59 Acetaminophen 500 mg Q6H PRN PO Last administered on 03/22/25at 20:05; Start 03/16/25 at 15:00; Stop 04/15/25 at 14:59 Insulin Human Regular INSULIN SLIDING SCAL... ACHS SQ Last administered on 03/23/25at 21:10; Start 03/16/25 at 16:30; Stop 04/15/25 at 16:29 Dextrose 50 ml AD PRN IV; Start 03/16/25 at 15:00; Stop 04/15/25 at 14:59 Glucagon 1 mg AD PRN IM; Start 03/16/25 at 15:00; Stop 04/15/25 at 14:59 Potassium Chloride 100 ml @ 100 mls/hr AD PRN IV; Start 03/16/25 at 15:00; Stop 04/15/25 at 14:59 Potassium Chloride 20 meq AD PRN PO; Start 03/16/25 at 15:00; Stop 04/15/25 at 14:59 Potassium Chloride 20 meq AD PRN PO Last administered on 03/17/25at 08:09; Start 03/16/25 at 15:00; Stop 04/15/25 at 14:59 Magnesium Sulfate 50 ml @ 0 mls/hr PROTOCOL PRN IV; Start 03/16/25 at 15:00; Stop 04/15/25 at 14:59 Ondansetron HCl 4 mg Q6H PRN IVP Last administered on 03/18/25at 20:08; Start 03/16/25 at 17:00; Stop 04/15/25 at 16:59 Iohexol 75 ml STK-MED ONCE IV; Start 03/16/25 at 16:55; Stop 03/16/25 at 16:55; Status DC Insulin Glargine 20 units DAILY SQ; Start 03/17/25 at 09:00; Stop 03/17/25 at 05:36; Status DC Insulin Glargine 14 units DAILY SQ Last administered on 03/19/25at 08:45; Start 03/17/25 at 09:00; Stop 03/20/25 at 07:17; Status DC Metoprolol Tartrate 50 mg ONCE ONCE PO Last administered on 03/17/25at 08:54; Start 03/17/25 at 08:30; Stop 03/17/25 at 08:31; Status DC Iohexol 35,000 mg STK-MED ONCE IV; Start 03/17/25 at 13:28; Stop 03/17/25 at 13:28; Status DC Metoprolol Tartrate 5 mg STK-MED ONCE IV; Start 03/17/25 at 13:44; Stop 03/17/25 at 13:44; Status DC Metoprolol Tartrate 5 mg STK-MED ONCE IV; Start 03/17/25 at 13:48; Stop 03/17/25 at 13:48; Status DC Insulin Human Regular 3 unit TIDAC SQ Last administered on 03/18/25at 11:58; Start 03/18/25 at 07:30; Stop 03/18/25 at 12:14; Status DC Ceftriaxone Sodium 1 gm Q24H IVPB Last administered on 03/21/25at 12:33; Start 03/18/25 at 12:30; Stop 03/22/25 at 07:29; Status DC Insulin Human Regular 4 unit TIDAC SQ Last administered on 03/19/25at 12:17; Start 03/18/25 at 17:00; Stop 03/19/25 at 22:26; Status DC Insulin Human Regular 3 unit TIDAC SQ Last administered on 03/23/25at 16:57; Start 03/20/25 at 07:30; Stop 04/19/25 at 07:29 Insulin Glargine 16 units DAILY SQ Last administered on 03/23/25at 08:48; Start 03/20/25 at 09:00; Stop 04/19/25 at 08:59 Gadoterate Meglumine 10 mmol STK-MED ONCE IV; Start 03/21/25 at 14:13; Stop 03/21/25 at 14:13; Status DC Nitrofurantoin Macrocrystals 100 mg BID PO Last administered on 03/23/25at 21:09; Start 03/22/25 at 09:00; Stop 03/26/25 at 07:30 Ergocalciferol 50,000 unit QWEEK PO; Start 03/29/25 at 09:00; Stop 04/28/25 at 08:59 LALO CORNEJO MD Mar 23, 2025 21:19
[2025-03-24 03:34] VITALS: BP 124/74; PULSE 90; RESP 16; TEMP 97.7
[2025-03-24 05:19] LABS: IMMATURE GRANULOCYTE ABSOLUTE 0.02 K/uL (0-1); NUCLEATED RED BLOOD CELLS 0.0 % (0.0-0.19); PLATELET COUNT (AUTO) 356 K/uL (130-400); RED BLOOD CELL COUNT(AUTO) 3.55 MIL/uL (4.00-5.50); RED CELL DISTRIBUTION WIDTH 12.3 % (11.0-15.5); WHITE BLOOD COUNT (AUTO) 7.6 K/uL (4.8-10.8)
[2025-03-24 05:32] LABS: CREATININE 0.5 mg/dL (0.5-1.0); GLOMERULAR FILTR. RATE CALC 121.0 mL/min (>90); GLUCOSE,RANDOM 104.0 mg/dL (70-105); SODIUM SERUM 143.0 mmol/L (136-145); UREA NITROGEN, BLOOD 21.0 mg/dL (7-18)
[2025-03-24 08:00] VITALS: BP 107/69; PULSE 74; RESP 18; TEMP 98.1; O2SAT 100
--- NOTE | 2025-03-24 08:07 | PN ---
[facility] CARDIOLOGY PROGRESS NOTE Date Patient Seen: Mar 24, 2025 Time of Visit: 08:05 Interval History: [Continued leg weakness ] Physical Examination: GENERAL: [No acute distress.] HEAD: [Normal with no signs of head trauma.] EYES: [PERRLA, EOMI, conjunctiva and sclera normal.] ENT: [Hearing grossly intact, normal oropharynx.] NECK: [Supple without JVD. There is no tenderness, lymphadenopathy, or masses. No thyromegaly. Normal carotid upstrokes without bruits.] LUNGS: [Clear breath sounds bilaterally. There are right basilar rales one third of the way up the chest. No wheezes, or rhonchi.] HEART: [Normal rate and rhythm. Normal S1 and S2 without mumurs, gallop or rub.] VASC: [Peripheral pulses +2 bilaterally.] ABD: [Bowel sounds normal, soft, nontender, no masses, no organomegaly. No audible bruits.] : [Not examined] LYMPH: [No lymphadenopathy noted.] EXT: [No clubbing, cyanosis or edema.] SKIN: [No rashes or lesions noted.] NEURO: [Awake, alert, and oriented x3.] Laboratory: [ ] Hematology Labs: Test 03/24/25 04:27 Range/Units White Blood Count 7.6 4.8-10.8 K/uL Red Blood Count 3.55 L 4.00-5.50 MIL/uL Hemoglobin 10.5 L 12.0-16.0 g/dL Hematocrit 30.9 L 36-48 % Mean Corpuscular Volume 87.0 79-99 fL Mean Corpuscular Hemoglobin 29.6 27.0-33.0 pg Mean Corpuscular Hemoglobin Concent 34.0 32.0-36.0 g/dL Red Cell Distribution Width 12.3 11.0-15.5 % Platelet Count 356 130-400 K/uL Mean Platelet Volume 11.3 H 7.5-10.5 fL Immature Granulocyte % (Auto) 0.3 0-1 % Neutrophils (%) (Auto) 55.5 40.0-77.0 % Lymphocytes (%) (Auto) 30.8 21.0-51.0 % Monocytes (%) (Auto) 8.6 3.0-13.0 % Eosinophils (%) (Auto) 4.1 0.0-8.0 % Basophils (%) (Auto) 0.7 0.0-5.0 % Neutrophils # (Auto) 4.2 1.8-7.7 K/uL Lymphocytes # (Auto) 2.3 1.0-4.8 K/uL Monocytes # (Auto) 0.7 0.1-1.0 K/uL Eosinophils # (Auto) 0.31 0.00-0.70 K/uL Basophils # (Auto) 0.05 0.00-0.20 K/uL Absolute Immature Granulocyte (auto 0.02 0-1 K/uL Nucleated Red Blood Cells 0.0 0.0-0.19 % Chemistry Labs: Test 03/24/25 05:45 03/24/25 04:27 Range/Units Whole Blood Glucose 116 H 70-110 MG/DL Sodium Level 143 136-145 mmol/L Potassium Level 3.8 3.5-5.1 mmol/L Chloride Level 107 101-111 mmol/L Carbon Dioxide Level 29 21-32 mmol/L Blood Urea Nitrogen 21 H 7-18 mg/dL Creatinine 0.5 0.5-1.0 mg/dL Glomerular Filtration Rate Calc 121 >90 mL/min Random Glucose 104 70-105 mg/dL Total Calcium 8.5 8.5-10.1 mg/dL Diagnostics / Radiology: [Copy/Paste Echos/Imaging Report here] Impression and Plan: [ DM History of coarctation of aorta s/p repair as an Lower extremity weakness due to cord compression] Plan: [ #History of coarctation of aorta s/p repair as an infant now with recurrence -CCTA absence of CAD, however, >75% reduction in diameter of coarctation of the aorta -Echo limited views of descending aorta, but was otherwise normal ->20 SBP drop in RUE compared to LUE -Dr Cooper evaluated patient from an Interventional standpoint, and due to strong pulses and no radiofemoral delay or drop in lower extremity BP compared to Upper extremity BP, coarctation is not felt to be significant. Therefore, recommend further Neurological workup and therapy #Lower extremity weakness -MRI cervical spine mild cord compression, pending Neurosurgery recs, explains upper extremity weakness but not lower extremity weakness. Patient is pending transfer to [facility] -pending outpatient EMG studies -RA and lupus workup pending Jillian Leavitt MD] JILLIAN LEAVITT MD Mar 24, 2025 08:07
[2025-03-24 09:13] LABS: RHEUMATOID ARTHRITIS FACTOR <10.0 IU/mL (<14.0)
[2025-03-24 11:54] VITALS: BP 138/90; PULSE 90; RESP 19; TEMP 98.2
--- NOTE | 2025-03-24 13:31 | PN ---
[facility] PROGRESS NOTE Date of Service: Mar 24, 2025 Time of Service: 13:10 HISTORY OF PRESENT ILLNESS: 39-year-old female with past medical history insulin dependent type 1 diabetes mellitus, history of coarctation of aorta status post surgery as a child who presented the hospital secondary to shortness of breath with exertion, chest pain, lower extremity weakness. Patient states since January last year she has noted that she has been having progressive shortness of breath. Her shortness of breath is present with exertional mainly ambulation. She can take 20s steps before getting short of. She also gets mildly short of breath with daily activities including cooking. She complains of midsternal chest pain which radiates towards her back. She describes the pain as heartburn in nature. She currently does not have any active chest pain when she came to the hospital. She denied any upper extremity numbness, weakness. Additionally she has also noted that she is having progressive weakness of her lower extremity. She has a difficult time with ambulation. She does ambulate at home. She had sprained her right ankle around one year ago and has noted pain in the ankle. She had x- ray done in the ER and she was treated for sprain conservatively. She denies any previous history of hypertension. She went to see her primary gum rolling machine tender Dr. Leavitt today where she was recommended to come to the hospital for further evaluation. She was sent as a direct admission. Furthermore she has a history of insulin dependent diabetes and currently takes Tresiba and Humalog at home. Patient's blood pressure on presentation was 167/72, heart rate was in the 90s, temperature was 99.0 SUBJECTIVE: 03/17/25: Patient was seen in room 220, along with her . Patient was alert, awake and oriented. Patient reports shortness of breath with exertion, weakness in her B/L lower extremities. Patient reports ankle pain in her right foot, attributes it to her ankle sprain which she had a few days ago. Patient reports recurrent buckling of her knee joints. Patient denies cramping in her b/l lower extremities. Patient denies any paresthesia in extremities. Patient denies any motor weakness in b/l upper extremities. Patient denied fever, chills, palpitations. Patient denies any current chest pain. 03/18/25: Patient was seen in room 220, along with her . Patient was alert, awake and oriented. Patient doesn't have any active complaints. Patient was informed by Dr. Leavitt that she has coarctation of aorta at the same previous site she got operated for during her childhood. Patient asked when will her scheduled MRI be done today. Patient denies cramping in her b/l lower extremities. Patient denies any paresthesia in extremities. Patient denies any motor weakness in b/l upper extremities. Patient denied fever, chills, palpitations. Patient denies any current chest pain. there was >20 SBP drop in right upper extremity compared to left upper extremity. 03/19/25: Patient was seen in room 220. Patient was alert, awake and oriented. Patient doesn't have any active complaints. Patient had concerns if its necessary to get the MRI done and conveyed that she didn't want to get her MRI done. Patient is waiting for her recommendations from Dr. Cooper on Friday for her coarctation of aorta. Patient denies cramping in her b/l lower extremities. Patient denies any paresthesia in extremities. Patient denies any motor weakness in b/l upper extremities. Patient denied fever, chills, palpitations. Patient denies any current chest pain. 03/20/25: Patient was seen and evaluated at bedside today. She is pending MRI lumbar spine as well as evaluation by Dr. Cooper, gum rolling machine tender, tomorrow. Due to recent episodes of hypoglycemia, she was seen by endocrinology consult and her insulin was adjusted. At my time of evaluation, patient reports no weakness or cramps in the lower extremities and patient states that it is due to her not walking while being hospitalized. She is otherwise vitally stable with blood pressure 127/70. 03/21/25: Patient was seen and evaluated at bedside today. Patient underwent MRI today. Patient was consulted by Dr. Cooper and his impression was "It is highly likely that this patient's problems are neurologic in order." MRI of cervical spine show Multilevel degenerative changes with areas of cord compression and neuroforaminal stenosis. MRI of lumbar spine show Small disc bulges with multilevel facet hypertrophic changes. MRI of Thoracic spine was unremarkable. Patient blood pressure values in four extremities today were Left arm-128/83, Right arm-152/84, left leg-155/90, right leg-149/87. patient denies any other active complaints. Patient denies any motor weakness in b/l upper extremities. Patient denied fever, chills, palpitations. Patient denies any current chest pain. 03/22/25: Patient was seen and evaluated at bedside today. Patient mentioned that she has morning stiffness and b/l knee pain so we ordered to RA workup to rule out rheumatoid arthritis. Patient denies any other active complaints. Dr. Leavitt recommended that Dr Cooper evaluated patient from an Interventional standpoint, and due to strong pulses and no radiofemoral delay or drop in lower extremity BP compared to Upper extremity BP, coarctation is not felt to be significant. Therefore, recommend further Neurological workup and therapy. Pending neurosurgery consultation, will follow their recommendations. 03/23/25: Patient was seen and evaluated in room 304. Patient reports feeling shock like paraesthesia on her left upper arm and neck stiffness. Patient reports that she slept more than usual last night. Patient is pending for neurosurgery consult today by Dr. Friedman, will follow his recommendations. Vitamin B12- 451. Patient denies any motor weakness in b/l upper extremities. Patient denied fever, chills, palpitations. Patient denies any current chest pain. 03/24/25: Patient was seen and evaluated in room 304. Patient doesn't have any active complaints today. Neurosurgery communicated saying the patient doesn't need any intervention due to absence of acute injury. Plan is [place] transfer the patient [place] [facility] [place] neurology as per Dr. Leavitt's recommendation. REVIEW OF SYSTEMS CONSTITUTIONAL: Denies fevers, chills, or night sweats. No unintentional weight loss reported. NEUROLOGICAL: Denies headache, amaurosis fugax, motor weakness, sensory deficit, vertigo/spinning sensation, gait abnormalities, or tremors. ENT: No hearing loss, otalgia, otorrhea, rhinitis, rhinorrhea, hoarseness, or sore throat. CARDIOVASCULAR: Positive for dyspnea on exertion, PULMONARY: Denies any shortness of breath, cough, phlegm/sputum, hemoptysis, pleuritic chest pain. SLEEP: Denies morning headaches, daytime somnolence or napping. Denies difficul ty falling asleep, staying asleep, waking from sleep. Denies knowledge of snoring. GASTROINTESTINAL: Denies any type of dysphagia to either liquids or solids. Denies nausea, vomiting, pyrosis, early satiety, abdominal pain, diarrhea, constipation, or changes in stool consistency or caliber. Denies coffee-ground emesis, hematemesis, hematochezia, or melanotic stools. GENITOURINARY: Denies frequency, urgency, nocturia, hematuria or incontinence (Storage/Irritative symptoms.) Low urinary stream, straining to void, urinary intermittency or hesitancy, splitting of the voiding stream, terminal dribbling. ENDOCRINOLOGIC: Denies polyuria, polydipsia, polyphagia or heat/cold intole rances. HEMATOLOGIC: Denies thrombophilia/previous clots, or coagulopathy/bleeding disorders. ONCOLOGIC: Denies personal history of malignancy. DERMATOLOGIC: Denies rashes or pruritus. PSYCHIATRIC: Denies any suicidal or homicidal ideation. Denies hallucinations. EXTREMITIES: b/l lower extremity weakness PHYSICAL EXAM GENERAL APPEARANCE: The patient is awake, alert, and oriented, in no acute cardiopulmonary distress. NEUROLOGICAL: Cranial nerves II-XII grossly intact. Motor is 5/5 in bilateral upper and lower extremities proximal to distal. No sensory deficits. HEENT: Face is symmetric. Pupils are equal and reactive. Extraocular movements are intact. NECK: Supple. No JVD. No thyromegaly. No submental, submandibular, pre- /postauricular, occipital or supraclavicular lymphadenopathy. CHEST: Normal chest expansion. No Telemetry. LUNGS: Absence of any rales, rhonchi or any wheezing. CARDIOVASCULAR: Regular. S1 and S2 normal. No appreciable rubs, murmurs or gallops. ABDOMEN: Soft, nontender, and nondistended. There is no rebound, voluntary guarding, or rigidity. : Deferred. No Cope. EXTREMITIES: Patient's lower extremity he is thin. She does move her lower extremities without issue. Unable to dorsiflex her right ankle secondary to pain. motor strength in left lower extremity. SKIN: No skin breakdown. Vital Signs (last 8hr) Date Time Temp Pulse Resp B/P (MAP) Pulse Ox O2 Delivery O2 Flow Rate FiO2 03/24/25 11:54 98.2 90 19 138/90 100 Room Air 21 03/24/25 08:00 100 Room Air* 0 21 03/24/25 08:00 98.1 74 18 107/69 100 Room Air 21 LABS: Laboratory: Test 03/24/25 11:29 03/24/25 04:27 03/23/25 04:32 Range/Units Whole Blood Glucose 196 #H 70-110 MG/DL Bedside Glucose Comment Notified Nurse White Blood Count 7.6 4.8-10.8 K/uL Red Blood Count 3.55 L 4.00-5.50 MIL/uL Hemoglobin 10.5 L 12.0-16.0 g/dL Hematocrit 30.9 L 36-48 % Mean Corpuscular Volume 87.0 79-99 fL Mean Corpuscular Hemoglobin 29.6 27.0-33.0 pg Mean Corpuscular Hemoglobin Concent 34.0 32.0-36.0 g/dL Red Cell Distribution Width 12.3 11.0-15.5 % Platelet Count 356 130-400 K/uL Mean Platelet Volume 11.3 H 7.5-10.5 fL Immature Granulocyte % (Auto) 0.3 0-1 % Neutrophils (%) (Auto) 55.5 40.0-77.0 % Lymphocytes (%) (Auto) 30.8 21.0-51.0 % Monocytes (%) (Auto) 8.6 3.0-13.0 % Eosinophils (%) (Auto) 4.1 0.0-8.0 % Basophils (%) (Auto) 0.7 0.0-5.0 % Neutrophils # (Auto) 4.2 1.8-7.7 K/uL Lymphocytes # (Auto) 2.3 1.0-4.8 K/uL Monocytes # (Auto) 0.7 0.1-1.0 K/uL Eosinophils # (Auto) 0.31 0.00-0.70 K/uL Basophils # (Auto) 0.05 0.00-0.20 K/uL Absolute Immature Granulocyte (auto 0.02 0-1 K/uL Nucleated Red Blood Cells 0.0 0.0-0.19 % Sodium Level 143 136-145 mmol/L Potassium Level 3.8 3.5-5.1 mmol/L Chloride Level 107 101-111 mmol/L Carbon Dioxide Level 29 21-32 mmol/L Blood Urea Nitrogen 21 H 7-18 mg/dL Creatinine 0.5 0.5-1.0 mg/dL Glomerular Filtration Rate Calc 121 >90 mL/min Random Glucose 104 70-105 mg/dL Total Calcium 8.5 8.5-10.1 mg/dL Rheumatoid Factor <10.0 <14.0 IU/mL Anti-Nuclear Antibody Screen Negative Negative MAGY-1 Antibody SS-A/Ro Antibody SS-B/La Antibody Sm (Junior) IgG Antibody, Quant ASSURANCE ASSOCIATE IgG Antibody, Quantitative Scl-70 (Scleroderma) Antibody Anti-Double Strand DNA Antibody Anti-Centromere IgG Antibody Current Medications Medications (Trade) Dose Ordered Sig/Jamila Route PRN Reason Start Time Stop Time Status Last Admin Dose Admin Acetaminophen (TYLenol 500MG TAB) 500 mg Q6H PRN PO MILD PAIN (1-3) 03/16/25 15:00 04/15/25 14:59 03/24/25 13:02 500 MG Ceftriaxone Sodium (ROCEphine 1G INJ) 1 gm Q24H IVPB 03/18/25 12:30 03/22/25 07:29 DC 03/21/25 12:33 1 GM Dextrose (D50w) 50 ml AD PRN IV HYPOGLYCEMIA PROTOCOL 03/16/25 15:00 04/15/25 14:59 Ergocalciferol (Drisdol) 50,000 unit QWEEK PO 03/29/25 09:00 04/28/25 08:59 Famotidine (Pepcid 20mg Vial) 20 mg BID IV 03/16/25 21:00 04/15/25 20:59 03/24/25 08:05 20 MG Glucagon (Glucagon 1mg Kit) 1 mg AD PRN IM HYPOGLYCEMIA PROTOCOL 03/16/25 15:00 04/15/25 14:59 Insulin Glargine (LANtus 100 UNITS/ML 10 ML VIAL) 14 units DAILY SQ 03/17/25 09:00 03/20/25 07:17 DC 03/19/25 08:45 14 UNITS Insulin Glargine (LANtus 100 UNITS/ML 10 ML VIAL) 16 units DAILY SQ 03/20/25 09:00 04/19/25 08:59 03/24/25 08:07 16 UNITS Insulin Glargine (LANtus 100 UNITS/ML 10 ML VIAL) 20 units DAILY SQ 03/17/25 09:00 03/17/25 05:36 DC Insulin Human Regular (humuLIN R 100 UNIT/ML 3ML) 3 unit TIDAC SQ 03/18/25 07:30 03/18/25 12:14 DC 03/18/25 11:58 3 UNIT Insulin Human Regular (humuLIN R 100 UNIT/ML 3ML) 3 unit TIDAC SQ 03/20/25 07:30 04/19/25 07:29 03/24/25 12:19 3 UNIT Insulin Human Regular (humuLIN R 100 UNIT/ML 3ML) 4 unit TIDAC SQ 03/18/25 17:00 03/19/25 22:26 DC 03/19/25 12:17 4 UNIT Insulin Human Regular (humuLIN R 100 UNIT/ML 3ML) INSULIN SLIDING SCAL... ACHS SQ 03/16/25 16:30 04/15/25 16:29 03/24/25 12:18 1 UNIT Magnesium Sulfate 50 ml @ 0 mls/hr PROTOCOL PRN IV hypomagnesemia 03/16/25 15:00 04/15/25 14:59 Nitrofurantoin Macrocrystals (Macrobid) 100 mg BID PO 03/22/25 09:00 03/26/25 07:30 03/24/25 08:07 100 MG Ondansetron HCl (zoFRAN 4MG INJ) 4 mg Q6H PRN IVP NAUSEA/VOMITING 03/16/25 17:00 04/15/25 16:59 03/18/25 20:08 4 MG Potassium Chloride 100 ml @ 100 mls/hr AD PRN IV POTASSIUM PROTOCOL 03/16/25 15:00 04/15/25 14:59 Potassium Chloride (K-Dur/Klor-Con 20meq) 20 meq AD PRN PO POTASSIUM PROTOCOL 03/16/25 15:00 04/15/25 14:59 03/17/25 08:09 20 MEQ Potassium Chloride (KCl 10% Elixir 20meq/15ml) 20 meq AD PRN PO POTASSIUM PROTOCOL 03/16/25 15:00 04/15/25 14:59 DIAGNOSTICS / RADIOLOGY: [place] [id number] [address] IMAGING REPORT Signed PATIENT: ANGELA BALLARD MR#: [id number] : 1985 SEX: F AGE: 39 LOCATION: 2DH ORDER 28 STATUS: ADM IN HOSPITAL REPORT#: [id number] SERVICE 26 REASON: No ORDERING PHYSICIAN: DICK CONSTANTINO MD PROCEDURE: L SPN WWO - MR SPINAL CANAL, LUMB W/WO CON EXAM: MR Lumbar Spine Without Intravenous Contrast. CLINICAL HISTORY: TECHNIQUE: Magnetic resonance images of the lumbar spine without and with intravenous intravenous contrast in multiple planes. CONTRAST: Intravenous contrast COMPARISON: None provided. FINDINGS: VERTEBRAE: No acute fracture or focal osseous lesion. No abnormal enhancement. ALIGNMENT: Bony alignment is anatomic. SPINAL CORD AND CAUDA EQUINA: No abnormal signal or mass. FINDINGS BY LEVEL: L1-L2: No central canal or foraminal stenosis. L2-L3: No central canal or foraminal stenosis. There is an annular bulge 2.3 mm with bilateral facet hypertrophy. L3-L4: No central canal or foraminal stenosis. L4-L5: No central canal or foraminal stenosis. Bilateral facet hypertrophic changes are seen L5-S1: No central canal or foraminal stenosis. Bilateral facet hypertrophic changes are seen PARASPINAL SOFT TISSUES: Unremarkable. 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 IMPRESSION: 1. No evidence of metastatic disease. Small disc bulges with multilevel facet hypertrophic changes as described /[place] DICTATED BY: ERICA CROSS MD DATE: 03/21/251635 ELECTRONICALLY SIGNED BY: ERICA CROSS MD DATE: 03/21/251635 [place] [address] IMAGING REPORT Signed PATIENT: ANGELA BALLARD MR#: [id number] : 1985 SEX: F AGE: 39 LOCATION: 2DH ORDER 28 STATUS: ADM IN REPORT#: [id number] SERVICE 26 REASON: LE weakness ORDERING PHYSICIAN: DICK CONSTANTINO MD PROCEDURE: TH SPN WWO - MR SPINAL CANAL, THORACIC WWO EXAM: MR Thoracic Spine with and with and without Intravenous Contrast. CLINICAL HISTORY: LE weakness treatment plan pending MRI results inpatient. Thank you!! TECHNIQUE: Magnetic resonance images of the thoracic spine with and without intravenous contrast in multiple planes. Series acquired: 8 - COR T2 LOC SSFSE - TR: 729.6 - TE: 64.7 - ET: 1.0 - Thk: 5.0 14 - SAG T2 FRFSE - TR: 3216.0 - TE: 121.4 - ET: 21.0 - Thk: 4.0 15 - SAG T1 FSE (FS) - TR: 513.0 - TE: 17.2 - ET: 7.0 - Thk: 4.0 16 - SAG STIR - TR: 4817.0 - TE: 37.8 - ET: 17.0 - Thk: 4.0 17 - AX T2 FRFSE - TR: 5393.0 - TE: 113.8 - ET: 15.0 - Thk: 4.0 26 - G+SAG T1 FSE - TR: 511.0 - TE: 17.1 - ET: 7.0 - Thk: 4.0 27 - G+ AX T1 - TR: 688.0 - TE: 10.4 - ET: 9.0 - Thk: 4.0 1000 - PASTED IMAGES - TE: 105.4 - ET: 21.0 - Thk: 5.0 CONTRAST: Intravenous COMPARISON: None provided. FINDINGS: SPINAL CORD: Normal cord signal and contour. No abnormal enhancement was seen VERTEBRAE: No acute fracture or aggressive appearing osseous lesion. ALIGNMENT: Bony alignment is anatomic. DEGENERATIVE CHANGES: No significant disc disease. No spinal canal or foraminal stenosis. PARASPINAL SOFT TISSUES: Unremarkable. IMPRESSION: 1. No acute thoracic spine findings. /[place] DICTATED BY: ERICA CROSS MD DATE: 03/21/251650 ELECTRONICALLY SIGNED BY: ERICA CROSS MD DATE: 03/21/251650 ASSESSMENT: Suspected coarctation of aorta status post repair as a child Progressive dyspnea on exertion. Differential secondary to coarctation of aorta versus CHF Lower extremity weakness Suspected rheumatoid arthritis Hypertension Insulin dependent diabetes mellitus chest pain PLAN: Progressive dyspnea on exertion. Differential secondary to coarctation of aorta versus CHF * Will monitor blood pressure in both arms and both lower extremity to assess for significant gradients * EKG ordered, which showed normal sinus rhythm without any abnormalities. * Troponin - 5, BNP- 41, * ECHO was ordered, results show LVEF of 50%, Moderate Left ventricular hypertrophy. * CTA was ordered which showed focal coarctation of aorta, 1.6 cm * Cardiology was consulted and CT Cardiac Angiography with contrast was ordered, results show absence of CAD, however, >75% reduction in diameter of coarctation of the aorta. Echo limited views of descending aorta, but was otherwise normal. * There was >20 SBP drop in right upper extremity compared to left upper extremity. * Blood pressure values in four extremities today(03/21/25) were Left arm- 128/83, Right arm-152/84, left leg-155/90, right leg-149/87. * CHF was ruled out. * Patient was consulted by Dr. Cooper, gum rolling machine tender and his impression was "It is highly likely that this patient's problems are neurologic in order." * Dr. Leavitt recommended that Dr Cooper evaluated patient from an Interventional standpoint, and due to strong pulses and no radiofemoral delay or drop in lower extremity BP compared to Upper extremity BP, coarctation is not felt to be significant. Therefore, recommend further Neurological workup and therapy. * Chest X-ray showed borderline cardiomegaly. * Follow up with the ultrasound KACEY. Lower extremity weakness * b/l lower extremity weakness w/ decreased motor strength. * US B/L lower extremity Duplex scan was ordered, results were unremarkable. * Neurology was consulted, they recommended MRI of lumbar spine to evaluate for disc herniation and nerve compression. EMG neuroconduction study as outpatient to assess electrical activity from spine to legs and identify lower extremity nerve injuries. Primary care physician referral required for EMG test. * CT lumbar spine, CT Thoracic spine, CT head w/o contrast was ordered. CT lumbar spine, thoracic spine results were unremarkable. Ct head findings were unremarkable. * MRI of cervival, lumbar, thoracic spine was ordered. MRI of cervical spine show Multilevel degenerative changes with areas of cord compression and neuroforaminal stenosis. MRI of lumbar spine show Small disc bulges with multilevel facet hypertrophic changes. MRI of Thoracic spine was unremarkable. * Awaiting Neurosurgery consultation by Dr. Friedman, will follow his recommendations. * Neurosurgery communicated saying the patient doesn't need any intervention due to absence of acute injury, as per Dr. Maier. * Plan is to transfer the patient [place] [facility] [place] inpatient neurology as per Dr. Leavitt's recommendation. * CT Cardiac Angiography with contrast was ordered, results show absence of CAD, however, >75% reduction in diameter of coarctation of the aorta. * Vitamin B12 was ordered, results show 451. * Ankle X-ray of right foot was ordered, which was unremarkable Suspected rheumatoid arthritis * Patient complains of morning stiffness gets better over the day, bilateral knee pain. * Ordered RA factor, CCP antibody and AMY,awaiting results Suspected coarctation of aorta status post repair as a child * H/O coarctation of aorta s/p repair when she was 23 days old Insulin dependent diabetes mellitus * H/O type 1 DM. HbA1c of 6.5 * A consult was placed for endocrinology. * continue Lantus 14 units daily and adjust for fasting glucose. * decrease Regular insulin to 3 units three times before meals due to hypoglycemia. * Continue low dose sliding scale insulin. * follow on plasma renin, serum aldosterone, plasma fractionated metanephrines and normetanephrine. * Monitor glucose q x 6 hourly. * Continue carb consistent diet. * Keep glucose less than 180 mg/dl. * As per endocrinology recommendations, Aldosterone serum, renin, plasma metanephrines were ordered will follow with results. Plasma metanephrines - <25.0, metanephrines - 28.5 Chest pain * EKG ordered, which showed normal sinus rhythm without any abnormalities. * Troponin - 5, BNP- 41, * ECHO was ordered, results show LVEF of 50%, Moderate Left ventricular hypertrophy. * CTA was ordered which showed focal coarctation of aorta, 1.6 cm * Cardiology was consulted and CT Cardiac Angiography with contrast was ordered, results show absence of CAD, however, >75% reduction in diameter of coarctation of the aorta. Echo limited views of descending aorta, but was otherwise normal. * CHF was ruled out. * Chest X-ray showed borderline cardiomegaly. ATTESTATION BY PHYSICIAN I have seen and examined the patient. I reviewed the documentation, medical decision making, and treatment plan as noted by the resident physician above. I agree with the findings and plan of care. LISHA MARTINEZ MD, SHAJI MD Mar 24, 2025 13:31
[2025-03-24 15:57] VITALS: BP 125/62; PULSE 86; RESP 19; TEMP 98.2
[2025-03-24] MEDS: ERGOCALCIFEROL (VITAMIN D2) 50,000 UNIT CAPSULE PO SCH (16:37)
[2025-03-24 19:45] VITALS: O2SAT 98
[2025-03-24 20:17] VITALS: BP 124/83; PULSE 91; RESP 16; TEMP 97.8
--- NOTE | 2025-03-24 21:10 | PN ---
Endocrinology progress note DOS:03/24/25 subjective: Home diabetic regimen: tresiba 15 units daily and humalog 7 units qac before meals Hba1c 6.5% I saw this patient recently in the hospital and am cortisol was checked due to intermittent low blood pressure. am cortisol was normal 17.2, so there was no evidence of adrenal insufficiency. adrenal hormonal work up result is pending. cardiology is following for hx of coarctation and possible stent restenosis. echo show Conclusion LVEF is 50%. Moderate concentric left ventricular hypertrophy. CT head, thoracic and lumbar spine was normal. Patient was seen and evaluated at bedside today. Patient underwent MRI today. Patient was seen by Dr. Cooper and his impression was "It is highly likely that this patient's problems are neurologic in order." MRI of cervical spine show Multilevel degenerative changes with areas of cord compression and neuroforaminal stenosis. MRI of lumbar spine show Small disc bulges with multilevel facet hypertrophic changes. MRI of Thoracic spine was unremarkable. 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 - Emergency room visit in September for sprained right ankle after fall at home Surgical History - Retinal detachment surgery in 2018 - Coarctation of the aorta repair at 23 days old - Surgery for muscle tightening in stomach at 10 days old Medications and Supplements - Insulin for type one diabetes - Always taking since diagnosis at age 8 - Avastin eye injections in both eyes due to prolonged diabetes - Received in the past Social History - Occupation: Works at a desk job Coded Allergies: levofloxacin (Unverified Allergy, Unknown, NAUSEA/VOMITING, 03/16/25) ASSESSMENT: Type 1 Diabetes mellitus Home diabetic regimen: tresiba 15 units daily and humalog 7 units qac before meals Hba1c 6.5% Hypertension I saw this patient recently in the hospital and am cortisol was checked due to intermittent low blood pressure. am cortisol was normal 17.2, so there was no evidence of adrenal insufficiency. she now reports episodes of elevated BP, chest pain and SOB-improving now. my suspicion is low for hyperaldosteronism. No evidence of pheochromocytoma as metanephrines and normetanephrines are normal. Suspected coarctation of aorta status post repair as a child, cardiology is following and no evidence of coarctation restenosis. Progressive dyspnea on exertion. Lower extremity weakness- mri of upper and lower extremities show abnormal findings as given above.. chest pain - improved PLAN: continue Lantus 14 units daily and adjust for fasting glucose. continue Regular insulin 3 units three times before meals decrease low dose to very low dose sliding scale insulin. follow on plasma renin, serum aldosterone, plasma fractionated metanephrines and normetanephrines. Monitor glucose q x 6 hourly. neurosurgery following and planning transfer to [facility] for further management. Continue carb consistent diet. Keep glucose less than 180 mg/dl. Vitals/Labs Vital Signs Date Time Temp Pulse Resp B/P (MAP) Pulse Ox O2 Delivery O2 Flow Rate FiO2 03/24/25 20:17 97.9 91 16 124/83 100 Room Air 03/24/25 15:57 21 03/24/25 08:00 0 Laboratory Tests 03/24/25 04:27 Medications Current Medications Famotidine 20 mg BID IV Last administered on 03/24/25at 08:05; Start 03/16/25 at 21:00; Stop 04/15/25 at 20:59 Acetaminophen 500 mg Q6H PRN PO Last administered on 03/24/25at 13:02; Start 03/16/25 at 15:00; Stop 04/15/25 at 14:59 Insulin Human Regular INSULIN SLIDING SCAL... ACHS SQ Last administered on 03/24/25at 16:39; Start 03/16/25 at 16:30; Stop 04/15/25 at 16:29 Dextrose 50 ml AD PRN IV; Start 03/16/25 at 15:00; Stop 04/15/25 at 14:59 Glucagon 1 mg AD PRN IM; Start 03/16/25 at 15:00; Stop 04/15/25 at 14:59 Potassium Chloride 100 ml @ 100 mls/hr AD PRN IV; Start 03/16/25 at 15:00; Stop 04/15/25 at 14:59 Potassium Chloride 20 meq AD PRN PO; Start 03/16/25 at 15:00; Stop 04/15/25 at 14:59 Potassium Chloride 20 meq AD PRN PO Last administered on 03/24/25at 18:33; Start 03/16/25 at 15:00; Stop 04/15/25 at 14:59 Magnesium Sulfate 50 ml @ 0 mls/hr PROTOCOL PRN IV; Start 03/16/25 at 15:00; Stop 04/15/25 at 14:59 Ondansetron HCl 4 mg Q6H PRN IVP Last administered on 03/18/25at 20:08; Start 03/16/25 at 17:00; Stop 04/15/25 at 16:59 Iohexol 75 ml STK-MED ONCE IV; Start 03/16/25 at 16:55; Stop 03/16/25 at 16:55; Status DC Insulin Glargine 20 units DAILY SQ; Start 03/17/25 at 09:00; Stop 03/17/25 at 05:36; Status DC Insulin Glargine 14 units DAILY SQ Last administered on 03/19/25at 08:45; Start 03/17/25 at 09:00; Stop 03/20/25 at 07:17; Status DC Metoprolol Tartrate 50 mg ONCE ONCE PO Last administered on 03/17/25at 08:54; Start 03/17/25 at 08:30; Stop 03/17/25 at 08:31; Status DC Iohexol 35,000 mg STK-MED ONCE IV; Start 03/17/25 at 13:28; Stop 03/17/25 at 13:28; Status DC Metoprolol Tartrate 5 mg STK-MED ONCE IV; Start 03/17/25 at 13:44; Stop 03/17/25 at 13:44; Status DC Metoprolol Tartrate 5 mg STK-MED ONCE IV; Start 03/17/25 at 13:48; Stop 03/17/25 at 13:48; Status DC Insulin Human Regular 3 unit TIDAC SQ Last administered on 03/18/25at 11:58; Start 03/18/25 at 07:30; Stop 03/18/25 at 12:14; Status DC Ceftriaxone Sodium 1 gm Q24H IVPB Last administered on 03/21/25at 12:33; Start 03/18/25 at 12:30; Stop 03/22/25 at 07:29; Status DC Insulin Human Regular 4 unit TIDAC SQ Last administered on 03/19/25at 12:17; Start 03/18/25 at 17:00; Stop 03/19/25 at 22:26; Status DC Insulin Human Regular 3 unit TIDAC SQ Last administered on 03/24/25at 16:41; Start 03/20/25 at 07:30; Stop 04/19/25 at 07:29 Insulin Glargine 16 units DAILY SQ Last administered on 03/24/25at 08:07; Start 03/20/25 at 09:00; Stop 04/19/25 at 08:59 Gadoterate Meglumine 10 mmol STK-MED ONCE IV; Start 03/21/25 at 14:13; Stop 03/21/25 at 14:13; Status DC Nitrofurantoin Macrocrystals 100 mg BID PO Last administered on 03/24/25at 08:07; Start 03/22/25 at 09:00; Stop 03/26/25 at 07:30 Ergocalciferol 50,000 unit QWEEK PO; Start 03/29/25 at 09:00; Stop 03/24/25 at 15:33; Status DC Ergocalciferol 50,000 unit QWEEK PO Last administered on 03/24/25at 16:37; Start 03/24/25 at 16:00; Stop 04/23/25 at 15:59 LALO CORNEJO MD Mar 24, 2025 21:10
[2025-03-25] VITALS (7 sets, daily range): BP systolic 103–123; BP diastolic 59–81; PULSE 66–93; RESP 14–20; TEMP 97.8–98; O2SAT 98
--- NOTE | 2025-03-25 00:40 | DS ---
The patient is a 39-year-old female patient with a history of longstanding diabetes mellitus type 1 who has been admitted with complaints of left-sided weakness. She denies any fall. She does refer that she uses and prefers to use a walker to be more steady. She does not have any spine surgery reported. No known allergies are reported. On physical examination, she was found in her bed. She is able to move comfortably. She is not in acute pain. No respiratory distress. There is adequate excursion of the neck but with some tenderness that she refers especially towards the left side. The chest is symmetrical. Abdomen is soft. She is able to move all 4 extremities and there are no pathological reflexes. The MRI of the spine was reviewed. The thoracic and lumbar MRIs are essentially negative. There are some mild spondylotic changes in the cervical spine, especially C4-C5, C5-C6, but there is no gross compressive myelopathy noted nor the patient has any signs of. Certainly she would benefit from physical therapy and evaluation with an EMG MCV due to her longstanding diabetes and based upon this and the response to the physical therapy, we will decide if she might benefit from any surgical intervention or pain management. The patient was addressed with the staff nurse present as well as family members in her room. TID: [id number] RECEIPT: [id number]
[2025-03-25 04:56] LABS: IMMATURE GRANULOCYTE ABSOLUTE 0.02 K/uL (0-1); NUCLEATED RED BLOOD CELLS 0.0 % (0.0-0.19); PLATELET COUNT (AUTO) 350 K/uL (130-400); RED BLOOD CELL COUNT(AUTO) 3.58 MIL/uL (4.00-5.50); RED CELL DISTRIBUTION WIDTH 12.3 % (11.0-15.5); WHITE BLOOD COUNT (AUTO) 8.2 K/uL (4.8-10.8)
[2025-03-25 05:26] LABS: CREATININE 0.6 mg/dL (0.5-1.0); GLOMERULAR FILTR. RATE CALC 116.0 mL/min (>90); GLUCOSE,RANDOM 159.0 mg/dL (70-105); SODIUM SERUM 138.0 mmol/L (136-145); UREA NITROGEN, BLOOD 22.0 mg/dL (7-18)
--- NOTE | 2025-03-25 06:05 | NUR ---
TRANSFER SPOKE TO [facility] TO INFORM HIM THAT WE ARE, STILL, INTERESTED IN TRANSFERRING THIS PATIENT TO [facility]-. STATES THEY ARE WAITING TO HEAR FROM [facility] FOR AN UPDATE.
--- NOTE | 2025-03-25 07:57 | PN ---
[facility] CARDIOLOGY PROGRESS NOTE Date Patient Seen: Mar 25, 2025 Time of Visit: 07:56 Interval History: [Continued leg weakness ] Physical Examination: GENERAL: [No acute distress.] HEAD: [Normal with no signs of head trauma.] EYES: [PERRLA, EOMI, conjunctiva and sclera normal.] ENT: [Hearing grossly intact, normal oropharynx.] NECK: [Supple without JVD. There is no tenderness, lymphadenopathy, or masses. No thyromegaly. Normal carotid upstrokes without bruits.] LUNGS: [Clear breath sounds bilaterally. There are right basilar rales one third of the way up the chest. No wheezes, or rhonchi.] HEART: [Normal rate and rhythm. Normal S1 and S2 without mumurs, gallop or rub.] VASC: [Peripheral pulses +2 bilaterally.] ABD: [Bowel sounds normal, soft, nontender, no masses, no organomegaly. No audible bruits.] : [Not examined] LYMPH: [No lymphadenopathy noted.] EXT: [No clubbing, cyanosis or edema.] SKIN: [No rashes or lesions noted.] NEURO: [Awake, alert, and oriented x3.] Laboratory: [ ] Hematology Labs: Test 03/25/25 04:24 Range/Units White Blood Count 8.2 4.8-10.8 K/uL Red Blood Count 3.58 L 4.00-5.50 MIL/uL Hemoglobin 10.8 L 12.0-16.0 g/dL Hematocrit 31.7 L 36-48 % Mean Corpuscular Volume 88.5 79-99 fL Mean Corpuscular Hemoglobin 30.2 27.0-33.0 pg Mean Corpuscular Hemoglobin Concent 34.1 32.0-36.0 g/dL Red Cell Distribution Width 12.3 11.0-15.5 % Platelet Count 350 130-400 K/uL Mean Platelet Volume 10.9 H 7.5-10.5 fL Immature Granulocyte % (Auto) 0.2 0-1 % Neutrophils (%) (Auto) 53.6 40.0-77.0 % Lymphocytes (%) (Auto) 33.2 21.0-51.0 % Monocytes (%) (Auto) 8.1 3.0-13.0 % Eosinophils (%) (Auto) 4.4 0.0-8.0 % Basophils (%) (Auto) 0.5 0.0-5.0 % Neutrophils # (Auto) 4.4 1.8-7.7 K/uL Lymphocytes # (Auto) 2.7 1.0-4.8 K/uL Monocytes # (Auto) 0.7 0.1-1.0 K/uL Eosinophils # (Auto) 0.36 0.00-0.70 K/uL Basophils # (Auto) 0.04 0.00-0.20 K/uL Absolute Immature Granulocyte (auto 0.02 0-1 K/uL Nucleated Red Blood Cells 0.0 0.0-0.19 % Chemistry Labs: Test 03/25/25 05:31 03/25/25 04:24 03/24/25 15:26 Range/Units Whole Blood Glucose 142 H 70-110 MG/DL Sodium Level 138 136-145 mmol/L Potassium Level 4.3 3.5-5.1 mmol/L Chloride Level 104 101-111 mmol/L Carbon Dioxide Level 26 21-32 mmol/L Blood Urea Nitrogen 22 H 7-18 mg/dL Creatinine 0.6 0.5-1.0 mg/dL Glomerular Filtration Rate Calc 116 >90 mL/min Random Glucose 159 #H 70-105 mg/dL Total Calcium 8.3 L 8.5-10.1 mg/dL Bedside Glucose Comment Notified Nurse Diagnostics / Radiology: [Copy/Paste Echos/Imaging Report here] Impression and Plan: [ DM History of coarctation of aorta s/p repair as an Lower extremity weakness due to cord compression] Plan: [ #History of coarctation of aorta s/p repair as an infant now with recurrence -CCTA absence of CAD, however, >75% reduction in diameter of coarctation of the aorta -Echo limited views of descending aorta, but was otherwise normal ->20 SBP drop in RUE compared to LUE -Dr Cooper evaluated patient from an Interventional standpoint, and due to strong pulses and no radiofemoral delay or drop in lower extremity BP compared to Upper extremity BP, coarctation is not felt to be significant. Therefore, recommend further Neurological workup and therapy. #Lower extremity weakness -MRI cervical spine mild cord compression, Neurosurgery consulted, explains upper extremity weakness but not lower extremity weakness. -pending outpatient EMG studies -RA and lupus workup pending Jillian Leavitt MD] JILLIAN LEAVITT MD Mar 25, 2025 07:57
--- NOTE | 2025-03-25 11:05 | NUR ---
TRANSFER FOLLOW UP SPOKE WITH [facility] FROM [facility] STATES [facility] STILL PENDING TO DISCUSS CASE WITH ADMINISTRATION TO MAKE THE DECISION . NAYLA SCOTT
--- NOTE | 2025-03-25 11:14 | PN ---
[facility] PROGRESS NOTE Date of Service: Mar 25, 2025 Time of Service: 10:58 HISTORY OF PRESENT ILLNESS: 39-year-old female with past medical history insulin dependent type 1 diabetes mellitus, history of coarctation of aorta status post surgery as a child who presented the hospital secondary to shortness of breath with exertion, chest pain, lower extremity weakness. Patient states since January last year she has noted that she has been having progressive shortness of breath. Her shortness of breath is present with exertional mainly ambulation. She can take 20s steps before getting short of. She also gets mildly short of breath with daily activities including cooking. She complains of midsternal chest pain which radiates towards her back. She describes the pain as heartburn in nature. She currently does not have any active chest pain when she came to the hospital. She denied any upper extremity numbness, weakness. Additionally she has also noted that she is having progressive weakness of her lower extremity. She has a difficult time with ambulation. She does ambulate at home. She had sprained her right ankle around one year ago and has noted pain in the ankle. She had x- ray done in the ER and she was treated for sprain conservatively. She denies any previous history of hypertension. She went to see her primary pulp and paper tester Dr. Leavitt today where she was recommended to come to the hospital for further evaluation. She was sent as a direct admission. Furthermore she has a history of insulin dependent diabetes and currently takes Tresiba and Humalog at home. Patient's blood pressure on presentation was 167/72, heart rate was in the 90s, temperature was 99.0 SUBJECTIVE: 03/17/25: Patient was seen in room 220, along with her . Patient was alert, awake and oriented. Patient reports shortness of breath with exertion, weakness in her B/L lower extremities. Patient reports ankle pain in her right foot, attributes it to her ankle sprain which she had a few days ago. Patient reports recurrent buckling of her knee joints. Patient denies cramping in her b/l lower extremities. Patient denies any paresthesia in extremities. Patient denies any motor weakness in b/l upper extremities. Patient denied fever, chills, palpitations. Patient denies any current chest pain. 03/18/25: Patient was seen in room 220, along with her . Patient was alert, awake and oriented. Patient doesn't have any active complaints. Patient was informed by Dr. Leavitt that she has coarctation of aorta at the same previous site she got operated for during her childhood. Patient asked when will her scheduled MRI be done today. Patient denies cramping in her b/l lower extremities. Patient denies any paresthesia in extremities. Patient denies any motor weakness in b/l upper extremities. Patient denied fever, chills, palpitations. Patient denies any current chest pain. there was >20 SBP drop in right upper extremity compared to left upper extremity. 03/19/25: Patient was seen in room 220. Patient was alert, awake and oriented. Patient doesn't have any active complaints. Patient had concerns if its necessary to get the MRI done and conveyed that she didn't want to get her MRI done. Patient is waiting for her recommendations from Dr. Cooper on Friday for her coarctation of aorta. Patient denies cramping in her b/l lower extremities. Patient denies any paresthesia in extremities. Patient denies any motor weakness in b/l upper extremities. Patient denied fever, chills, palpitations. Patient denies any current chest pain. 03/20/25: Patient was seen and evaluated at bedside today. She is pending MRI lumbar spine as well as evaluation by Dr. Cooper, pulp and paper tester, tomorrow. Due to recent episodes of hypoglycemia, she was seen by endocrinology consult and her insulin was adjusted. At my time of evaluation, patient reports no weakness or cramps in the lower extremities and patient states that it is due to her not walking while being hospitalized. She is otherwise vitally stable with blood pressure 127/70. 03/21/25: Patient was seen and evaluated at bedside today. Patient underwent MRI today. Patient was consulted by Dr. Cooper and his impression was "It is highly likely that this patient's problems are neurologic in order." MRI of cervical spine show Multilevel degenerative changes with areas of cord compression and neuroforaminal stenosis. MRI of lumbar spine show Small disc bulges with multilevel facet hypertrophic changes. MRI of Thoracic spine was unremarkable. Patient blood pressure values in four extremities today were Left arm-128/83, Right arm-152/84, left leg-155/90, right leg-149/87. patient denies any other active complaints. Patient denies any motor weakness in b/l upper extremities. Patient denied fever, chills, palpitations. Patient denies any current chest pain. 03/22/25: Patient was seen and evaluated at bedside today. Patient mentioned that she has morning stiffness and b/l knee pain so we ordered to RA workup to rule out rheumatoid arthritis. Patient denies any other active complaints. Dr. Leavitt recommended that Dr Cooper evaluated patient from an Interventional standpoint, and due to strong pulses and no radiofemoral delay or drop in lower extremity BP compared to Upper extremity BP, coarctation is not felt to be significant. Therefore, recommend further Neurological workup and therapy. Pending neurosurgery consultation, will follow their recommendations. 03/23/25: Patient was seen and evaluated in room 304. Patient reports feeling shock like paraesthesia on her left upper arm and neck stiffness. Patient reports that she slept more than usual last night. Patient is pending for neurosurgery consult today by Dr. Friedman, will follow his recommendations. Vitamin B12- 451. Patient denies any motor weakness in b/l upper extremities. Patient denied fever, chills, palpitations. Patient denies any current chest pain. 03/24/25: Patient was seen and evaluated in room 304. Patient doesn't have any active complaints today. Neurosurgery communicated saying the patient doesn't need any intervention due to absence of acute injury. Plan is to transfer the patient to [facility] for inpatient neurology as per Dr. Leavitt's recommendation. 03/25/25: Patient was seen and evaluated in room 304. Patient doesn't have any active complaints today. Dr. Maier consulted her yesterday and recommended that "she would benefit from physical therapy and evaluation with an EMG due to her longstanding diabetes and based upon this and the response to the physical therapy, we will decide if she might benefit from any surgical intervention or pain management." We are waiting for her transfer approval from [facility]. RA and narciso pus panel came back to be negative. REVIEW OF SYSTEMS CONSTITUTIONAL: Denies fevers, chills, or night sweats. No unintentional weight loss reported. NEUROLOGICAL: Denies headache, amaurosis fugax, motor weakness, sensory deficit, vertigo/spinning sensation, gait abnormalities, or tremors. ENT: No hearing loss, otalgia, otorrhea, rhinitis, rhinorrhea, hoarseness, or sore throat. CARDIOVASCULAR: Positive for dyspnea on exertion, PULMONARY: Denies any shortness of breath, cough, phlegm/sputum, hemoptysis, pleuritic chest pain. SLEEP: Denies morning headaches, daytime somnolence or napping. Denies difficulty falling asleep, staying asleep, waking from sleep. Denies knowledge of snoring. GASTROINTESTINAL: Denies any type of dysphagia to either liquids or solids. Denies nausea, vomiting, pyrosis, early satiety, abdominal pain, diarrhea, constipation, or changes in stool consistency or caliber. Denies coffee-ground emesis, hematemesis, hematochezia, or melanotic stools. GENITOURINARY: Denies frequency, urgency, nocturia, hematuria or incontinence (Storage/Irritative symptoms.) Low urinary stream, straining to void, urinary intermittency or hesitancy, splitting of the voiding stream, terminal dribbling. ENDOCRINOLOGIC: Denies polyuria, polydipsia, polyphagia or heat/cold intolerances. HEMATOLOGIC: Denies thrombophilia/previous clots, or coagulopathy/bleeding d isorders. ONCOLOGIC: Denies personal history of malignancy. DERMATOLOGIC: Denies rashes or pruritus. PSYCHIATRIC: Denies any suicidal or homicidal ideation. Denies hallucinations. EXTREMITIES: b/l lower extremity weakness PHYSICAL EXAM GENERAL APPEARANCE: The patient is awake, alert, and oriented, in no acute cardiopulmonary distress. NEUROLOGICAL: Cranial nerves II-XII grossly intact. Motor is 5/5 in bilateral upper and lower extremities proximal to distal. No sensory deficits. HEENT: Face is symmetric. Pupils are equal and reactive. Extraocular movements are intact. NECK: Supple. No JVD. No thyromegaly. No submental, submandibular, pre- /postauricular, occipital or supraclavicular lymphadenopathy. CHEST: Normal chest expansion. No Telemetry. LUNGS: Absence of any rales, rhonchi or any wheezing. CARDIOVASCULAR: Regular. S1 and S2 normal. No appreciable rubs, murmurs or gallops. ABDOMEN: Soft, nontender, and nondistended. There is no rebound, voluntary gu arding, or rigidity. : Deferred. No Cope. EXTREMITIES: Patient's lower extremity he is thin. She does move her lower extremities without issue. Unable to dorsiflex her right ankle secondary to pain. motor strength in left lower extremity. SKIN: No skin breakdown. Vital Signs (last 8hr) Date Time Temp Pulse Resp B/P (MAP) Pulse Ox O2 Delivery O2 Flow Rate FiO2 03/25/25 07:41 98.1 89 16 114/76 98 Room Air 03/25/25 04:00 97.9 90 17 111/76 99 Room Air LABS: Laboratory: Test 03/25/25 10:53 03/25/25 04:24 03/24/25 15:26 Range/Units Whole Blood Glucose 248 #H 70-110 MG/DL White Blood Count 8.2 4.8-10.8 K/uL Red Blood Count 3.58 L 4.00-5.50 MIL/uL Hemoglobin 10.8 L 12.0-16.0 g/dL Hematocrit 31.7 L 36-48 % Mean Corpuscular Volume 88.5 79-99 fL Mean Corpuscular Hemoglobin 30.2 27.0-33.0 pg Mean Corpuscular Hemoglobin Concent 34.1 32.0-36.0 g/dL Red Cell Distribution Width 12.3 11.0-15.5 % Platelet Count 350 130-400 K/uL Mean Platelet Volume 10.9 H 7.5-10.5 fL Immature Granulocyte % (Auto) 0.2 0-1 % Neutrophils (%) (Auto) 53.6 40.0-77.0 % Lymphocytes (%) (Auto) 33.2 21.0-51.0 % Monocytes (%) (Auto) 8.1 3.0-13.0 % Eosinophils (%) (Auto) 4.4 0.0-8.0 % Basophils (%) (Auto) 0.5 0.0-5.0 % Neutrophils # (Auto) 4.4 1.8-7.7 K/uL Lymphocytes # (Auto) 2.7 1.0-4.8 K/uL Monocytes # (Auto) 0.7 0.1-1.0 K/uL Eosinophils # (Auto) 0.36 0.00-0.70 K/uL Basophils # (Auto) 0.04 0.00-0.20 K/uL Absolute Immature Granulocyte (auto 0.02 0-1 K/uL Nucleated Red Blood Cells 0.0 0.0-0.19 % Sodium Level 138 136-145 mmol/L Potassium Level 4.3 3.5-5.1 mmol/L Chloride Level 104 101-111 mmol/L Carbon Dioxide Level 26 21-32 mmol/L Blood Urea Nitrogen 22 H 7-18 mg/dL Creatinine 0.6 0.5-1.0 mg/dL Glomerular Filtration Rate Calc 116 >90 mL/min Random Glucose 159 #H 70-105 mg/dL Total Calcium 8.3 L 8.5-10.1 mg/dL Bedside Glucose Comment Notified Nurse Current Medications Medications (Trade) Dose Ordered Sig/Jamila Route PRN Reason Start Time Stop Time Status Last Admin Dose Admin Acetaminophen (TYLenol 500MG TAB) 500 mg Q6H PRN PO MILD PAIN (1-3) 03/16/25 15:00 04/15/25 14:59 03/24/25 13:02 500 MG Ceftriaxone Sodium (ROCEphine 1G INJ) 1 gm Q24H IVPB 03/18/25 12:30 03/22/25 07:29 DC 03/21/25 12:33 1 GM Dextrose (D50w) 50 ml AD PRN IV HYPOGLYCEMIA PROTOCOL 03/16/25 15:00 04/15/25 14:59 Ergocalciferol (Drisdol) 50,000 unit QWEEK PO 03/24/25 16:00 04/23/25 15:59 03/24/25 16:37 50,000 UNIT Ergocalciferol (Drisdol) 50,000 unit QWEEK PO 03/29/25 09:00 03/24/25 15:33 DC Famotidine (Pepcid 20mg Vial) 20 mg BID IV 03/16/25 21:00 04/15/25 20:59 03/25/25 08:56 20 MG Glucagon (Glucagon 1mg Kit) 1 mg AD PRN IM HYPOGLYCEMIA PROTOCOL 03/16/25 15:00 04/15/25 14:59 Insulin Glargine (LANtus 100 UNITS/ML 10 ML VIAL) 14 units DAILY SQ 03/17/25 09:00 03/20/25 07:17 DC 03/19/25 08:45 14 UNITS Insulin Glargine (LANtus 100 UNITS/ML 10 ML VIAL) 16 units DAILY SQ 03/20/25 09:00 04/19/25 08:59 03/25/25 09:04 16 UNITS Insulin Glargine (LANtus 100 UNITS/ML 10 ML VIAL) 20 units DAILY SQ 03/17/25 09:00 03/17/25 05:36 DC Insulin Human Regular (humuLIN R 100 UNIT/ML 3ML) 3 unit TIDAC SQ 03/18/25 07:30 03/18/25 12:14 DC 03/18/25 11:58 3 UNIT Insulin Human Regular (humuLIN R 100 UNIT/ML 3ML) 3 unit TIDAC SQ 03/20/25 07:30 04/19/25 07:29 03/25/25 08:03 3 UNIT Insulin Human Regular (humuLIN R 100 UNIT/ML 3ML) 4 unit TIDAC SQ 03/18/25 17:00 03/19/25 22:26 DC 03/19/25 12:17 4 UNIT Insulin Human Regular (humuLIN R 100 UNIT/ML 3ML) INSULIN SLIDING SCAL... ACHS SQ 03/16/25 16:30 04/15/25 16:29 03/24/25 16:39 1 UNIT Magnesium Sulfate 50 ml @ 0 mls/hr PROTOCOL PRN IV hypomagnesemia 03/16/25 15:00 04/15/25 14:59 Nitrofurantoin Macrocrystals (Macrobid) 100 mg BID PO 03/22/25 09:00 03/26/25 07:30 03/25/25 08:56 100 MG Ondansetron HCl (zoFRAN 4MG INJ) 4 mg Q6H PRN IVP NAUSEA/VOMITING 03/16/25 17:00 04/15/25 16:59 03/18/25 20:08 4 MG Potassium Chloride 100 ml @ 100 mls/hr AD PRN IV POTASSIUM PROTOCOL 03/16/25 15:00 04/15/25 14:59 Potassium Chloride (K-Dur/Klor-Con 20meq) 20 meq AD PRN PO POTASSIUM PROTOCOL 03/16/25 15:00 04/15/25 14:59 03/24/25 18:33 20 MEQ Potassium Chloride (KCl 10% Elixir 20meq/15ml) 20 meq AD PRN PO POTASSIUM PROTOCOL 03/16/25 15:00 04/15/25 14:59 DIAGNOSTICS / RADIOLOGY: [place] [address] [address] IMAGING REPORT Signed PATIENT: ANGELA BALLARD MR#: [id number] : 1985 SEX: F AGE: 39 LOCATION: 2DH ORDER 28 STATUS: ADM IN REPORT#: [id number] SERVICE 26 REASON: LE weakness ORDERING PHYSICIAN: DICK CONSTANTINO MD PROCEDURE: TH SPN WWO - MR SPINAL CANAL, THORACIC WWO EXAM: MR Thoracic Spine with and with and without Intravenous Contrast. CLINICAL HISTORY: LE weakness treatment plan pending MRI results inpatient. Thank you!! TECHNIQUE: Magnetic resonance images of the thoracic spine with and without intravenous contrast in multiple planes. Series acquired: 8 - COR T2 LOC SSFSE - TR: 729.6 - TE: 64.7 - ET: 1.0 - Thk: 5.0 14 - SAG T2 FRFSE - TR: 3216.0 - TE: 121.4 - ET: 21.0 - Thk: 4.0 15 - SAG T1 FSE (FS) - TR: 513.0 - TE: 17.2 - ET: 7.0 - Thk: 4.0 16 - SAG STIR - TR: 4817.0 - TE: 37.8 - ET: 17.0 - Thk: 4.0 17 - AX T2 FRFSE - TR: 5393.0 - TE: 113.8 - ET: 15.0 - Thk: 4.0 26 - G+SAG T1 FSE - TR: 511.0 - TE: 17.1 - ET: 7.0 - Thk: 4.0 27 - G+ AX T1 - TR: 688.0 - TE: 10.4 - ET: 9.0 - Thk: 4.0 1000 - PASTED IMAGES - TE: 105.4 - ET: 21.0 - Thk: 5.0 CONTRAST: Intravenous COMPARISON: None provided. FINDINGS: SPINAL CORD: Normal cord signal and contour. No abnormal enhancement was seen VERTEBRAE: No acute fracture or aggressive appearing osseous lesion. ALIGNMENT: Bony alignment is anatomic. DEGENERATIVE CHANGES: No significant disc disease. No spinal canal or foraminal stenosis. PARASPINAL SOFT TISSUES: Unremarkable. IMPRESSION: 1. No acute thoracic spine findings. /[place] DICTATED BY: ERICA CROSS MD DATE: 03/21/251650 ELECTRONICALLY SIGNED BY: ERICA CROSS MD DATE: 03/21/251650 [place] [address] [place], [place] [id number] IMAGING REPORT Signed PATIENT: ANGELA BALLARD MR#: [id number] : 1985 SEX: F AGE: 39 LOCATION: 2DH ORDER 28 STATUS: ADM IN [facility] REPORT#: [id number] SERVICE 26 REASON: No ORDERING PHYSICIAN: DICK CONSTANTINO MD PROCEDURE: L SPN WWO - MR SPINAL CANAL, LUMB W/WO CON EXAM: MR Lumbar Spine Without Intravenous Contrast. CLINICAL HISTORY: TECHNIQUE: Magnetic resonance images of the lumbar spine without and with intravenous intravenous contrast in multiple planes. CONTRAST: Intravenous contrast COMPARISON: None provided. FINDINGS: VERTEBRAE: No acute fracture or focal osseous lesion. No abnormal enhancement. ALIGNMENT: Bony alignment is anatomic. SPINAL CORD AND CAUDA EQUINA: No abnormal signal or mass. FINDINGS BY LEVEL: L1-L2: No central canal or foraminal stenosis. L2-L3: No central canal or foraminal stenosis. There is an annular bulge 2.3 mm with bilateral facet hypertrophy. L3-L4: No central canal or foraminal stenosis. L4-L5: No central canal or foraminal stenosis. Bilateral facet hypertrophic changes are seen L5-S1: No central canal or foraminal stenosis. Bilateral facet hypertrophic changes are seen PARASPINAL SOFT TISSUES: Unremarkable. 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 IMPRESSION: 1. No evidence of metastatic disease. Small disc bulges with multilevel facet hypertrophic changes as described /[place] DICTATED BY: ERICA CROSS MD DATE: 03/21/251635 ELECTRONICALLY SIGNED BY: ERICA CROSS MD DATE: 03/21/251635 [facility] [address] [place] [address] IMAGING REPORT Signed PATIENT: ANGELA BALLARD MR#: [id number] : 1985 SEX: F AGE: 39 LOCATION: 2DH ORDER 28 STATUS: ADM IN [facility] REPORT#: [id number] SERVICE 26 REASON: NO ORDERING PHYSICIAN: DICK CONSTANTINO MD PROCEDURE: C SPN WWO - MR SPINAL CANAL, CERV W/WO CON EXAM: MR Cervical Spine Without IV contrast. CLINICAL HISTORY: NO treatment plan pending MRI results inpatient. Thank you!! TECHNIQUE: Magnetic resonance images of the cervical spine without intravenous contrast in multiple planes. Series acquired: 2 - LOCALIZER - TR: 700.0 - TE: 79.9 - ET: 1.0 - Thk: 5.0 300 - SC:SAG T2 FRFSE - TR: 3465.0 - TE: 118.4 - ET: 27.0 - Thk: 3.0 400 - SC:SAG T1 FSE - TR: 453.0 - TE: 16.1 - ET: 4.0 - Thk: 3.0 500 - SC:SAG STIR - TR: 4352.0 - TE: 39.7 - ET: 13.0 - Thk: 3.0 600 - SC:AX T2 FRFSE - TR: 4817.0 - TE: 120.4 - ET: 27.0 - Thk: 3.0 2400 - SC:G+ SAG T1 FS - TR: 493.0 - TE: 16.1 - ET: 7.0 - Thk: 3.0 2500 - SC:G+ AX T1 FS - TR: 678.0 - TE: 18.5 - ET: 10.0 - Thk: 3.0 CONTRAST: None. Clariscan 11 cc. COMPARISON: None provided. Images with and without IV contrast FINDINGS: VERTEBRAE: No compressions are seen. No masses are seen. There is no infiltrative bone marrow disease. ALIGNMENT: Bony alignment is anatomic. SPINAL CORD/BRAIN: No abnormality is seen in the cord. No abnormal enhancement. No abnormality is seen in the visualized portions of the brain. FINDINGS BY LEVEL: C2-C3: The disc space height is maintained. There is adequate disc hydration. There is no bulge or herniation. No neural foraminal stenosis is seen. No spinal canal stenosis is seen. Facets are normal. C3-C4: The discs shows a protrusion 2 mm with bilateral facet and uncinate hypertrophy. Moderate left-sided neuroforaminal stenosis with bilateral facet hypertrophic changes. Mild cord compression seen. C4-C5: Disc protrusion is seen 2.7 mm with cord compression and moderate right-sided neuroforaminal stenosis. Bilateral facet hypertrophic changes are seen C5-C6: The disc is desiccated with a 3 mm disc protrusion causing cord compression. Bilateral facet and uncinate hypertrophy without neural foraminal stenosis. C6-C7: The disc space height is maintained. There is adequate disc hydration. There is no bulge or herniation. No neural foraminal stenosis is seen. No spinal canal stenosis is seen. Facets are normal. C7-T1: The disc space height is maintained. There is adequate disc hydration. There is no bulge or herniation. No neural foraminal stenosis is seen. No spinal canal stenosis is seen. Facets are normal. PARASPINAL SOFT TISSUES: No soft tissue abnormality is noted. IMPRESSION: Multilevel degenerative changes with areas of cord compression and neuroforaminal stenosis No acute cervical spinal abnormality. /[place] DICTATED BY: ERICA CROSS MD DATE: 03/21/251638 ELECTRONICALLY SIGNED BY: ERICA CROSS MD DATE: 03/21/251638 ASSESSMENT: Suspected coarctation of aorta status post repair as a child Progressive dyspnea on exertion. Differential secondary to coarctation of aorta versus CHF Lower extremity weakness Suspected rheumatoid arthritis Hypertension Insulin dependent diabetes mellitus chest pain PLAN: Progressive dyspnea on exertion. Differential secondary to coarctation of aorta versus CHF * Will monitor blood pressure in both arms and both lower extremity to assess for significant gradients * EKG ordered, which showed normal sinus rhythm without any abnormalities. * Troponin - 5, BNP- 41, * ECHO was ordered, results show LVEF of 50%, Moderate Left ventricular hypertrophy. * CTA was ordered which showed focal coarctation of aorta, 1.6 cm * Cardiology was consulted and CT Cardiac Angiography with contrast was ordered, results show absence of CAD, however, >75% reduction in diameter of coarctation of the aorta. Echo limited views of descending aorta, but was ot herwise normal. * There was >20 SBP drop in right upper extremity compared to left upper extremity. * Blood pressure values in four extremities today(03/21/25) were Left arm- 128/83, Right arm-152/84, left leg-155/90, right leg-149/87. * CHF was ruled out. * Patient was consulted by Dr. Cooper, pulp and paper tester and his impression was "It is highly likely that this patient's problems are neurologic in order." * Dr. Leavitt recommended that Dr Cooper evaluated patient from an Interventional standpoint, and due to strong pulses and no radiofemoral delay or drop in lower extremity BP compared to Upper extremity BP, coarctation is not felt to be significant. Therefore, recommend further Neurological workup and therapy. * Chest X-ray showed borderline cardiomegaly. * Follow up with the ultrasound KACEY. Lower extremity weakness * b/l lower extremity weakness w/ decreased motor strength. * US B/L lower extremity Duplex scan was ordered, results were unremarkable. * Neurology was consulted, they recommended MRI of lumbar spine to evaluate for disc herniation and nerve compression. EMG neuroconduction study as outpatient to assess electrical activity from spine to legs and identify lower extremity nerve injuries. Primary care physician referral required for EMG test. * CT lumbar spine, CT Thoracic spine, CT head w/o contrast was ordered. CT lumbar spine, thoracic spine results were unremarkable. Ct head findings were unremarkable. * MRI of cervival, lumbar, thoracic spine was ordered. MRI of cervical spine show Multilevel degenerative changes with areas of cord compression and neuroforaminal stenosis. MRI of lumbar spine show Small disc bulges with multilevel facet hypertrophic changes. MRI of Thoracic spine was unremarkable. * Awaiting Neurosurgery consultation by Dr. Friedman, will follow his recommendations. * Neurosurgery communicated saying the patient doesn't need any intervention due to absence of acute injury, as per Dr. Maier. * Plan is to transfer the patient to [facility] for inpatient neurology as per Dr. Leavitt's recommendation. * CT Cardiac Angiography with contrast was ordered, results show absence of CAD, however, >75% reduction in diameter of coarctation of the aorta. * Vitamin B12 was ordered, results show 451. * Ankle X-ray of right foot was ordered, which was unremarkable Suspected rheumatoid arthritis * Patient complains of morning stiffness gets better over the day, bilateral knee pain. * Ordered RA factor, CCP antibody and AMY, RA factor, AMY was negative. Suspected coarctation of aorta status post repair as a child * H/O coarctation of aorta s/p repair when she was 23 days old Insulin dependent diabetes mellitus * H/O type 1 DM. HbA1c of 6.5 * A consult was placed for endocrinology. * continue Lantus 14 units daily and adjust for fasting glucose. * decrease Regular insulin to 3 units three times before meals due to hypoglycemia. * Continue low dose sliding scale insulin. * follow on plasma renin, serum aldosterone, plasma fractionated metanephrines and normetanephrine. * Monitor glucose q x 6 hourly. * Continue carb consistent diet. * Keep glucose less than 180 mg/dl. * As per endocrinology recommendations, Aldosterone serum, renin, plasma metanephrines were ordered will follow with results. Plasma metanephrines - <25.0, metanephrines - 28.5 Chest pain * EKG ordered, which showed normal sinus rhythm without any abnormalities. * Troponin - 5, BNP- 41, * ECHO was ordered, results show LVEF of 50%, Moderate Left ventricular hypertrophy. * CTA was ordered which showed focal coarctation of aorta, 1.6 cm * Cardiology was consulted and CT Cardiac Angiography with contrast was ordered, results show absence of CAD, however, >75% reduction in diameter of coarctation of the aorta. Echo limited views of descending aorta, but was otherwise normal. * CHF was ruled out. * Chest X-ray showed borderline cardiomegaly. ATTESTATION BY PHYSICIAN I have seen and examined the patient. I reviewed the documentation, medical decision making, and treatment plan as noted by the resident physician above. I agree with the findings and plan of care. LISHA MARTINEZ MD, SHAJI MD Mar 25, 2025 11:14
--- NOTE | 2025-03-25 11:55 | NUR ---
TRANSFER CALL BACK FROM [facility] [place] INTAKE NURSE STAN WITH A DENIAL DUE TO [facility], [facility] MADE AWARE WHICH WILL REACH OUT TO DR CUCA SHEPPARD. PRIMARY NURSE ALSO NOTIFIED. NAYLA SCOTT
--- NOTE | 2025-03-25 13:14 | NUR ---
transfer met with pt and spouse inform of transfer declined from [facility] [place] and per dr mayorga will initiated transfer to [facility] inform of transfer process both verbalized understanding and consent signed. Krishna meng
--- NOTE | 2025-03-25 14:35 | NUR ---
TRANSFER CALL PLACED TO [facility] [phone] SPOKE WITH [facility] INTAKE NURSE INFORMATION PROVIDED AND WILL CALL BACK. NAYLA SCOTT
--- NOTE | 2025-03-25 14:43 | NUR ---
TRANSFER CALL BACK FROM INTAKE NURSE [facility] WITH A DENIAL DUE TO NO INPT EMG SERVICE, [facility]G IS ON OUT PT SERVICE SHE PROVIDED PHONE NUMBERS OF 2 PHYSICIANS THAT PROVIDED OUT PT SERVICE FOR [facility]. [address] FREDDY FREY IN [facility] [phone] IS DR IVY SEO IN [place] [phone]. PRIMARY NURSE WILL BE MADE AWARE. NAYLA SCOTT
[2025-03-29] MEDS ORDERED: ERGOCALCIFEROL (VITAMIN D2) 50,000 UNIT CAPSULE PO SCH (09:00)
== END 2025-03-25 20:45 | disposition home or self-care (01) | DRG 204 ==
LOC: EDH 14:29 → DIRECT 14:30 → 2DH 18:15 → 3AH 03-21 18:32
PROVIDERS: ADMIT Internal Medicine; ATTEND Internal Medicine
DX: R06.02 Shortness of breath (principal); K31.1 Adult hypertrophic pyloric stenosis; R53.1 Weakness; R06.00 Dyspnea, unspecified; I16.0 Hypertensive urgency; E10.9 Type 1 diabetes mellitus without complications; K76.0 Fatty (change of) liver, not elsewhere classified; I10 Essential (primary) hypertension; R29.6 Repeated falls; Z79.4 Long term (current) use of insulin; Z87.74 Personal history of (corrected) congenital malformations of heart and circulatory system; Z72.3 Lack of physical exercise
CPT/HCPCS: 36415; 70450; 71045; 71275; 72128; 72131; 72156; 72157; 72158; 73600; 75574; 80048; 80053; 81001; 81025; 82088; 82306; 82607; 82948; 83036; 83735; 83835; 83880; 84145; 84244; 84443; 84484; 85025; 85027; 86038; 86200; 86215; 86235; 86431; 87086; 87186; 93005; 93306; 93356; 93925; G0378; J0696; J1815; J2405; J3490; Q9967; A9575; J1308